=== PATIENT | female | born 1995 | race Caucasian/White ===

== ENCOUNTER → 2017-07-20 | Outpatient (CLI) | payer OTHER ==
--- NOTE | 2017-07-20 10:38 | CT ---
EXAMINATION TYPE: CT abdomen pelvis wo con DATE OF EXAM: 07/20/2017 COMPARISON: NONE HISTORY: Patient complains of left flank pain. Patient has a history of prior renal stones. CT DLP: 355.8 mGycm Examination of the solid and hollow viscera is limited given the lack of contrast. FINDINGS: LUNG BASES: No evidence for nodule. No evidence for infiltrate. LIVER/GB: The gallbladder is unremarkable. No space-occupying hepatic lesion. PANCREAS: No pancreatic mass identified. No inflammatory process seen. SPLEEN: No evidence for splenomegaly. No intrasplenic lesions seen. ADRENALS: No adrenal nodules identified. No evidence for thickening. KIDNEYS: Left UPJ calculus measuring 4.2 mm resulting in mild left-sided hydronephrosis. There is a c alculus adjacent to the urinary bladder on axial image 129 of 160 which measures 3 mm. This is likely outside of the confines of the ureter and may reflect a phlebolith. Urinary bladder is unremarkable. Urinary bladder is unremarkable. BOWEL: Appendix has a normal appearance. No evidence of bowel obstruction. No inflammatory process. Lymph nodes: No evidence for adenopathy greater than 1 cm. Abdominal aorta: Atheromatous changes seen. No evidence for aneurysm. Genital organs: No significant abnormality. Other: No significant abnormality. IMPRESSION: 1. LEFT UPJ CALCULUS RESULTING IN MILD LEFT-SIDED HYDRONEPHROSIS.
== END | disposition home or self-care (01) ==
LOC: RADCTMAIN 10:05
PROVIDERS: ATTEND Family Medicine
DX: N13.30 Unspecified hydronephrosis (principal); N20.1 Calculus of ureter
CPT/HCPCS: 74176

== ENCOUNTER 2017-09-16 17:23 | Emergency (ER) | payer OTHER ==
[2017-09-16 17:48] VITALS: BP 135/85; PULSE 69; RESP 16; TEMP 97.7
--- NOTE | 2017-09-16 18:36 | ED ---
ENT HPI - General Chief complaint: Dental/Oral Stated complaint: impacted tooth Time Seen by Provider: 09/16/17 18:07 Source: patient, RN notes reviewed Mode of arrival: ambulatory Limitations: no limitations - History of Present Illness Initial comments: This is a 22-year-old female who presents to the emergency department with chief complaint of dental pain. Patient states that she was seen last week by her dentist and was told that she has 4 impacted wisdom teeth. Advised her to set up an appointment with an oral surgeon, which patient states that she has not done so far. She states that she presented to urgent care this morning with pain in right upper molar area. She was prescribed naproxen and clindamycin. They advised her to present to the emergency department if any swelling occurred. She presents with complaint of minor swelling of right cheek. She states that she took Tylenol 3 this past Tuesday and that did help with the pain. Denies fever, chills, chest pain, shortness of breath, abdominal pain, nausea or vomiting, constipation or diarrhea, dysuria or hematuria, numbness or tingling, headache or vision changes. - Related Data Home Medications Medication Instructions Recorded Confirmed Ciprofloxacin HCl [Cipro] 500 mg PO BID 04/19/15 04/19/15 Ketorolac [Toradol] 1 tab PO Q6H PRN 04/19/15 04/19/15 Tamsulosin [Flomax] 1 tab PO DAILY 04/19/15 04/19/15 Previous Rx's Medication Instructions Recorded HYDROcodone/APAP 5-325MG [[place] 5] 1 each PO Q6HR PRN #12 tab 09/16/17 Allergies Allergy/AdvReac Type Severity Reaction Status Date / Time Sulfa (Sulfonamide Allergy Rash/Hives Verified 09/16/17 17:49 Antibiotics) amoxicillin [Amoxicillin] AdvReac Rash/Hives Verified 09/16/17 17:49 Review of Systems ROS Statement: Those systems with pertinent positive or pertinent negative responses have been documented in the HPI. ROS Other: All systems not noted in ROS Statement are negative. Past Medical History Past Medical History: GI Bleed History of Any Multi-Drug Resistant Organisms: None Reported Additional Past Surgical History / Comment(s): colonoscopy Past Psychological History: No Psychological Hx Reported Smoking Status: Never smoker Past Alcohol Use History: Occasional Past Drug Use History: None Reported General Exam - General Exam Comments Initial Comments: General: Awake and alert, well-developed; in no apparent distress. HEENT: Head atraumatic, normocephalic. Pupils are equal, round and reactive to light. Extraocular movements intact. Oropharynx moist without erythema or exudate. No evidence of fluctuance or mass. No dental or gumline tenderness. Mild swelling of right cheek. Neck: Supple. Normal ROM. Cardiovascular: Regular rate and rhythm. No murmurs, rubs or gallops. Chest symmetrical. Respiratory: Lungs clear to auscultation bilaterally. No wheezes, rales or rhonchi. Normal respiratory effort with no use of accessory muscles. Skin: [place], warm and dry without rashes or lesions. Neurological: Alert and oriented x3. CN II-XII grossly intact. Speech is fluent and answers are appropriate. No focal neuro deficits. Psychiatric: Normal mood and affect. No overt signs of depression or anxiety noted. Limitations: no limitations Course Vital Signs 09/16/17 17:47 Temperature 97.7 F Pulse Rate 69 Respiratory 16 Rate Blood Pressure 135/85 O2 Sat by Pulse 98 Oximetry Medical Decision Making - Medical Decision Making This is a 22-year-old female who presents to the emergency department with chief complaint of dental pain. she was seen last week by her dentist and was diagnosed with 4 impacted wisdom teeth. She was advised to schedule an appointment with oral surgery but has yet to do so. There is no evidence of abscess or localized infection. Patient was seen this morning at urgent care and was prescribed clindamycin and naproxen. Patient presents today to the emergency department with complaint of continuing pain. She requests pain medication to get through the weekend until she is able to follow-up with her doctor. Patient will be discharged home with a prescription for [place]. She was strongly advised to set up an appointment with oral surgery to have wisdom teeth removed. Patient is in agreement and voices understanding. All questions were answered. Disposition Clinical Impression: Impacted molar Disposition: HOME SELF-CARE Condition: Good Instructions: Toothache (ED) Additional Instructions: Please schedule appointment with oral surgery as soon as possible. Please take medications as prescribed. Continue to take Clindamycin as prescribed. Please follow up with primary care provider within 1-2 days. Return to emergency department if symptoms should worsen or any concerns arise. Prescriptions: HYDROcodone/APAP 5-325MG [[place] 5] 1 each PO Q6HR PRN #12 tab PRN Reason: Pain Referrals: Emily Douglas DO [Primary Care Provider] - 1-2 days Time of Disposition: 18:38
== END 2017-09-16 19:00 | disposition home or self-care (01) ==
LOC: EC 17:23
DX: K01.1 Impacted teeth (principal); Z79.899 Other long term (current) drug therapy; Z88.0 Allergy status to penicillin; Z88.2 Allergy status to sulfonamides
CPT/HCPCS: 99282

== ENCOUNTER → 2017-11-02 | Outpatient (CLI) | payer OTHER ==
--- NOTE | 2017-11-02 08:45 | CT ---
EXAMINATION TYPE: CT abdomen pelvis wo con DATE OF EXAM: 11/02/2017 HISTORY: Gross Hematuria CT DLP: 831 mGycm. Automated Exposure Control for Dose Reduction was Utilized. TECHNIQUE: CT scan of the abdomen and pelvis is performed without oral or IV contrast. COMPARISON: CT abdomen and pelvis July 20, 2017 FINDINGS: Within the limitations of a non-contrast study, the following observations are made. LUNG BASES: No significant abnormality is appreciated. LIVER/GB: Contracted gallbladder noted likely product of recent meal ingestion as somewhat prominent stomach is identified. PANCREAS: No significant abnormality is seen. SPLEEN: No significant abnormality is seen. ADRENALS: No significant abnormality is seen. KIDNEYS: No renal stones are seen bilaterally. There is however interval progression of calculus on p rior study at left UPJ to mid ureter level seen best coronal image 42 where it measures up to 5 mm on long axis at level of pelvic brim. This is perhaps causing minimal proximal pyelocaliectasis and hyd roureter. There is slightly more prominent focal hydroureter at level of calculus axial image 55. No right-sided hydronephrosis is seen. No intraluminal calculus in the bladder is identified. BOWEL: Incidental normal-appearing appendix is seen inferiorly from cecum. GENITAL ORGANS: Anteverted uterus is seen projecting to right of midline. Both ovaries are identified and not suspiciously enlarged. A new 2.0 cm low dense lesion left ovary axial image 69 likely reflec ts dominant follicle. LYMPH NODES: No greater than 1cm abdominal or pelvic lymph nodes are appreciated. OSSEOUS STRUCTURES: No significant abnormality is seen. OTHER: No significant additional abnormality is seen. IMPRESSION: There is interval progression of left UPJ stone now to level of pelvic brim or mid ureter level. It measures up to 5.5 mm on long axis on current study. There is focal mild to moderate urete r dilatation at level of stone. No significant hydronephrosis is seen. Urology referral advised.
== END | disposition home or self-care (01) ==
LOC: RADCTMAIN 08:06
PROVIDERS: ATTEND Family Medicine
DX: N20.1 Calculus of ureter (principal); N28.82 Megaloureter
CPT/HCPCS: 74176

== ENCOUNTER 2018-01-18 02:21 | Emergency (ER) | payer OTHER ==
[2018-01-18 02:36] VITALS: TEMP 98.4
[2018-01-18] MEDS ORDERED: ONDANSETRON 4 MG/2 ML VIAL IVP STA (02:41)
[2018-01-18] MEDS ORDERED: MORPHINE SULFATE/PF 10MG/10ML VL IVP STA ×2 (02:41→03:16)
[2018-01-18] MEDS ORDERED: SODIUM CHLORIDE 0.9% 1,000 ML IV ONE (02:41)
[2018-01-18] MEDS ORDERED: KETOROLAC 30 MG/ML 1 ML VIAL IVP STA (02:41)
[2018-01-18 02:50] LABS: Appearance,Urine Cloudy (Clear); Bilirubin,Urine Negative (Negative); Blood,Urine Small (Negative); Color,Urine Yellow; Glucose,Urine (UA) Negative (Negative); Ketones,Urine 1+ (Negative); Leukocyte Esterase,Urine Negative (Negative); Mucus,Urine Occasional /hpf; Nitrite,Urine Negative (Negative); PH, Urine 5.5 (5.0-8.0); Protein,Urine Trace (Negative); RBC,Urine 14 /hpf (0-5); Specific Gravity,Urine 1.022 (1.001-1.035); Squamous Epithelial Cell,Urine 6 /hpf (0-4); Urobilinogen,Urine <2.0 mg/dL (<2.0); WBC,Urine 2 /hpf (0-5)
--- NOTE | 2018-01-18 02:56 | ED ---
Abdominal Pain HPI - General Chief Complaint: Abdominal Pain Stated Complaint: kidney stone Time Seen by Provider: 01/18/18 02:38 Source: patient Mode of arrival: ambulatory Limitations: no limitations - History of Present Illness Initial Comments: 22-year-old female patient presents to the emergency department today for complaints of left flank and abdominal pain. Patient states that this started on Tuesday. States that throughout the week and it has worsened. States that today he has become much worse. States she is also having hematuria with this. States she feels like she is having some urinary retention. States that she has had a kidney stone 2-3 times in the past and this feels quite similar to her previous symptoms. Patient states she is nauseated but has not vomited. States she has had a few episodes of diarrhea today. Denies any blood in her stool. She denies any chance of . Patient denies any recent rash, fever, chills, shortness breath, chest pain, numbness, tingling, dizziness, weakness, headache, visual changes, or any other complaints. - Related Data Home Medications Medication Instructions Recorded Confirmed Dextroamphetamine/Amphetamine 25 mg PO QAM 01/18/18 01/18/18 [Adderall Xr] Previous Rx's Medication Instructions Recorded Hydrocodone/Acetaminophen [[place] 1 tab PO Q6HR PRN #15 tab 01/18/18 5-325] Ibuprofen [Motrin] 600 mg PO Q8HR PRN #30 tab 01/18/18 Ondansetron [Zofran ODT] 4 mg PO Q8HR PRN #10 tab 01/18/18 Tamsulosin HCl [Flomax] 0.4 mg PO DAILY #7 cap 01/18/18 Allergies Allergy/AdvReac Type Severity Reaction Status Date / Time Sulfa (Sulfonamide Allergy Rash/Hives Verified 01/18/18 02:36 Antibiotics) amoxicillin [Amoxicillin] AdvReac Rash/Hives Verified 01/18/18 02:36 Review of Systems ROS Statement: Those systems with pertinent positive or pertinent negative responses have been documented in the HPI. ROS Other: All systems not noted in ROS Statement are negative. Past Medical History Past Medical History: GI Bleed Additional Past Medical History / Comment(s): kidney stones History of Any Multi-Drug Resistant Organisms: C-DIFF Date of last positivie culture/infection: 2015 Additional Past Surgical History / Comment(s): colonoscopy, Past Psychological History: Anxiety, Depression Smoking Status: Never smoker Past Alcohol Use History: Occasional Past Drug Use History: None Reported General Exam Limitations: no limitations General appearance: alert, in no apparent distress, other (This is a well- developed, well-nourished adult female patient in mild distress related to pain. Vital signs upon presentation are temperature 98.4F, pulse 81, respirations 18, blood pressure 161/98, pulse ox 98% on room air.) Eye exam: Present: normal appearance, PERRL, EOMI. Absent: scleral icterus, conjunctival injection, periorbital swelling Respiratory exam: Present: normal lung sounds bilaterally. Absent: respiratory distress, wheezes, rales, rhonchi, stridor Cardiovascular Exam: Present: regular rate, normal rhythm, normal heart sounds. Absent: systolic murmur, diastolic murmur, rubs, gallop, clicks GI/Abdominal exam: Present: soft, tenderness (Left lower quadrant tenderness), normal bowel sounds. Absent: distended, guarding, rebound, rigid Back exam: Present: normal inspection, CVA tenderness (L). Absent: CVA tenderness (R) Neurological exam: Present: alert, oriented X3, CN II-XII intact Psychiatric exam: Present: normal affect, normal mood Skin exam: Present: warm, dry, intact, normal color. Absent: rash Course Vital Signs 01/18/18 02:32 Temperature 98.4 F Pulse Rate 81 Respiratory 18 Rate Blood Pressure 161/98 O2 Sat by Pulse 98 Oximetry Medical Decision Making - Medical Decision Making 22-year-old female patient presents to the emergency department today for evaluation of left flank and abdominal pain. Physical examination does reveal some left lower quadrant tenderness and left flank tenderness. Labs reviewed and did reveal red blood cells in the urine. Patient symptoms are consistent with kidney stone. She does have a history of kidney stones and states her symptoms feel similar. KUB x-ray of the abdomen did show a calcification of the left pelvic floor which could represent stone in the left distal ureter. I did discuss findings with the patient. We'll discharge her with Flomax, [place], ibuprofen, and Zofran. She is instructed to strain her urine. She is instructed to follow-up with urology as soon as possible. She is instructed to return here immediately for any new, worsening, or concerning symptoms. She verbalizes understanding and agrees with this plan. - Lab Data Result diagrams: 01/18/18 02:45 01/18/18 02:45 Lab Results 01/18/18 01/18/18 01/18/18 Range/Units 02:37 02:37 02:45 WBC (3.8-10.6) k/uL RBC (3.80-5.40) m/uL Hgb (11.4-16.0) gm/dL Hct (34.0-46.0) % MCV (80.0-100.0) fL MCH (25.0-35.0) pg MCHC (31.0-37.0) g/dL RDW (11.5-15.5) % Plt Count (150-450) k/uL Neutrophils % % Lymphocytes % % Monocytes % % Eosinophils % % Basophils % % Neutrophils # (1.3-7.7) k/uL Lymphocytes # (1.0-4.8) k/uL Monocytes # (0-1.0) k/uL Eosinophils # (0-0.7) k/uL Basophils # (0-0.2) k/uL Sodium 141 (137-145) mmol/L Potassium 3.9 (3.5-5.1) mmol/L Chloride 104 (98-107) mmol/L Carbon Dioxide 23 (22-30) mmol/L Anion Gap 14 mmol/L BUN 11 (7-17) mg/dL Creatinine 0.80 (0.52-1.04) mg/dL Est GFR (CKD-EPI)AfAm >90 (>60 ml/min/1.73 sqM) Est GFR (CKD-EPI)NonAf >90 (>60 ml/min/1.73 sqM) Glucose 95 (74-99) mg/dL Calcium 10.7 H (8.4-10.2) mg/dL Total Bilirubin 0.6 (0.2-1.3) mg/dL AST 20 (14-36) U/L ALT 24 (9-52) U/L Alkaline Phosphatase 101 (38-126) U/L Total Protein 7.0 (6.3-8.2) g/dL Albumin 4.1 (3.5-5.0) g/dL Amylase 36 (30-110) U/L Lipase 50 (23-300) U/L Urine Color Yellow Urine Appearance Cloudy H (Clear) Urine pH 5.5 (5.0-8.0) Ur Specific [place] 1.022 (1.001-1.035) Urine Protein Trace H (Negative) Urine Glucose (UA) Negative (Negative) Urine Ketones 1+ H (Negative) Urine Blood Small H (Negative) Urine Nitrite Negative (Negative) Urine Bilirubin Negative (Negative) Urine Urobilinogen <2.0 (<2.0) mg/dL Ur Leukocyte Esterase Negative (Negative) Urine RBC 14 H (0-5) /hpf Urine WBC 2 (0-5) /hpf Ur Squamous Epith Cells 6 H (0-4) /hpf Urine Mucus Occasional H (None) /hpf Urine HCG, Qual Not Detected (Not Detectd) 01/18/18 Range/Units 02:45 WBC 13.8 H (3.8-10.6) k/uL RBC 4.83 (3.80-5.40) m/uL Hgb 14.6 (11.4-16.0) gm/dL Hct 41.9 (34.0-46.0) % MCV 86.8 (80.0-100.0) fL MCH 30.2 (25.0-35.0) pg MCHC 34.8 (31.0-37.0) g/dL RDW 12.1 (11.5-15.5) % Plt Count 334 (150-450) k/uL Neutrophils % 78 % Lymphocytes % 14 % Monocytes % 3 % Eosinophils % 3 % Basophils % 1 % Neutrophils # 10.7 H (1.3-7.7) k/uL Lymphocytes # 1.9 (1.0-4.8) k/uL Monocytes # 0.5 (0-1.0) k/uL Eosinophils # 0.4 (0-0.7) k/uL Basophils # 0.1 (0-0.2) k/uL Sodium (137-145) mmol/L Potassium (3.5-5.1) mmol/L Chloride (98-107) mmol/L Carbon Dioxide (22-30) mmol/L Anion Gap mmol/L BUN (7-17) mg/dL Creatinine (0.52-1.04) mg/dL Est GFR (CKD-EPI)AfAm (>60 ml/min/1.73 sqM) Est GFR (CKD-EPI)NonAf (>60 ml/min/1.73 sqM) Glucose (74-99) mg/dL Calcium (8.4-10.2) mg/dL Total Bilirubin (0.2-1.3) mg/dL AST (14-36) U/L ALT (9-52) U/L Alkaline Phosphatase (38-126) U/L Total Protein (6.3-8.2) g/dL Albumin (3.5-5.0) g/dL Amylase (30-110) U/L Lipase (23-300) U/L Urine Color Urine Appearance (Clear) Urine pH (5.0-8.0) Ur Specific [place] (1.001-1.035) Urine Protein (Negative) Urine Glucose (UA) (Negative) Urine Ketones (Negative) Urine Blood (Negative) Urine Nitrite (Negative) Urine Bilirubin (Negative) Urine Urobilinogen (<2.0) mg/dL Ur Leukocyte Esterase (Negative) Urine RBC (0-5) /hpf Urine WBC (0-5) /hpf Ur Squamous Epith Cells (0-4) /hpf Urine Mucus (None) /hpf Urine HCG, Qual (Not Detectd) - Radiology Data Radiology results: report reviewed, image reviewed Two-view x-ray of the abdomen shows bowel gas pattern is normal. There is no sign of intestinal obstruction or pneumoperitoneum. Fecal pattern is normal. Lung bases are clear. There are no pathologic calcifications over the kidneys. There is a 6 mm calcification over the floor of the pelvis, left side. Bony structures are intact. Impression by Dr. Chacon shows left-sided pelvic calcification could be stone in the distal left ureter that was in the mid left ureter and a computed tomography scan of 11/02/2017. Disposition Clinical Impression: Kidney stone on left side Disposition: HOME SELF-CARE Condition: Good Instructions: Kidney Stones (ED), How to Strain Your Urine (ED) Additional Instructions: Increase fluids. Take medications as directed. Follow-up with urology as soon as possible. Return here immediately for any new, worsening, or concerning symptoms. Prescriptions: Hydrocodone/Acetaminophen [[place] 5-325] 1 tab PO Q6HR PRN #15 tab PRN Reason: Pain Ibuprofen [Motrin] 600 mg PO Q8HR PRN #30 tab PRN Reason: Pain Ondansetron [Zofran ODT] 4 mg PO Q8HR PRN #10 tab PRN Reason: Nausea Tamsulosin HCl [Flomax] 0.4 mg PO DAILY #7 cap Referrals: Emily Douglas DO [Primary Care Provider] - 1-2 days Marvin Dumont MD [STAFF PHYSICIAN] - 1-2 days Time of Disposition: 03:44
[2018-01-18 03:00] LABS: Basophils # (A) 0.1 k/uL (0-0.2); Basophils % (A) 1 %; Eosinophils # (A) 0.4 k/uL (0-0.7); Eosinophils % (A) 3 %; HCT 41.9 % (34.0-46.0); HGB 14.6 gm/dL (11.4-16.0); Lymphocytes # (A) 1.9 k/uL (1.0-4.8); Lymphocytes % (A) 14 %; MCH 30.2 pg (25.0-35.0); MCHC 34.8 g/dL (31.0-37.0); MCV 86.8 fL (80.0-100.0); Mean Platelet Volume 6.9; Monocytes # (A) 0.5 k/uL (0-1.0); Monocytes % (A) 3 %; Neutrophils # (A) 10.7 k/uL (1.3-7.7); Neutrophils % (A) 78 %; Platelet Count 334 k/uL (150-450); RBC 4.83 m/uL (3.80-5.40); RDW 12.1 % (11.5-15.5); WBC 13.8 k/uL (3.8-10.6)
[2018-01-18 03:11] LABS: ALT 24 U/L (9-52); AST 20 U/L (14-36); Albumin 4.1 g/dL (3.5-5.0); Alkaline Phosphatase 101 U/L (38-126); Amylase 36 U/L (30-110); Anion Gap 14 mmol/L; Blood Urea Nitrogen 11 mg/dL (7-17); Calcium 10.7 mg/dL (8.4-10.2); Carbon Dioxide 23 mmol/L (22-30); Chloride 104 mmol/L (98-107); Glucose 95 mg/dL (74-99); Lipase 50 U/L (23-300); Potassium 3.9 mmol/L (3.5-5.1); Sodium 141 mmol/L (137-145); Total Bilirubin 0.6 mg/dL (0.2-1.3)
--- NOTE | 2018-01-18 03:24 | XR ---
EXAMINATION TYPE: XR KUB DATE OF EXAM: 01/18/2018 COMPARISON: 04/19/2015 HISTORY: Left flank pain TECHNIQUE: 2 views FINDINGS: Bowel gas pattern is normal. There is no sign of intestinal obstruction or pneumoperitoneum . Fecal pattern is normal. Lung bases are clear. There are no pathologic calcifications over the kidn eys. There is a 6 mm calcification over the floor of the pelvis on the left side. Bony structures are intact. IMPRESSION: Left-sided pelvic calcification could be stone in the distal left ureter that was in the mid left ureter on the CT scan of 11/02/2017.
[2018-01-18] MEDS ORDERED: TAMSULOSIN 0.4 MG CAP.ER.24H PO STA (03:42)
[2018-01-18] MEDS ORDERED: ACET/COD 300 MG/30 MG STARTER PACK 6 TAB BTL PO STA (03:42)
[2018-01-18 04:08] VITALS: BP 131/85; PULSE 77; RESP 16
== END 2018-01-18 04:10 | disposition home or self-care (01) ==
LOC: EC 02:21
DX: N20.2 Calculus of kidney with calculus of ureter (principal); R19.7 Diarrhea, unspecified; F32.9 Major depressive disorder, single episode, unspecified; F41.9 Anxiety disorder, unspecified; Z79.899 Other long term (current) drug therapy; Z87.442 Personal history of urinary calculi; Z88.0 Allergy status to penicillin; Z88.2 Allergy status to sulfonamides
CPT/HCPCS: 99284; 96374; 96375 ×2; 36415; 80053; 82150; 83690; 85025; 81001; 81025; 74018; J2405; J1885; J2270

== ENCOUNTER 2018-02-10 08:29 | Inpatient (IN) | payer OTHER ==
[2018-02-10] MEDS ORDERED: MORPHINE SULFATE 4MG/4ML SYRG IV STA (08:55)
[2018-02-10] MEDS ORDERED: SODIUM CHLORIDE 0.9% 1,000 ML IV STA (08:55)
[2018-02-10] MEDS ORDERED: ONDANSETRON 4 MG/2 ML VIAL IVP STA (08:55)
[2018-02-10 09:32] LABS: Basophils # (A) 0.1 k/uL (0-0.2); Basophils % (A) 0 %; Eosinophils # (A) 0.1 k/uL (0-0.7); Eosinophils % (A) 1 %; HCT 38.4 % (34.0-46.0); HGB 12.8 gm/dL (11.4-16.0); Lymphocytes # (A) 1.9 k/uL (1.0-4.8); Lymphocytes % (A) 10 %; MCH 28.4 pg (25.0-35.0); MCHC 33.3 g/dL (31.0-37.0); MCV 85.4 fL (80.0-100.0); Mean Platelet Volume 6.9; Monocytes # (A) 1.1 k/uL (0-1.0); Monocytes % (A) 6 %; Neutrophils # (A) 16.2 k/uL (1.3-7.7); Neutrophils % (A) 83 %; Platelet Count 477 k/uL (150-450); RBC 4.49 m/uL (3.80-5.40); RDW 12.1 % (11.5-15.5); WBC 19.6 k/uL (3.8-10.6)
[2018-02-10 09:45] LABS: ALT 20 U/L (9-52); AST 13 U/L (14-36); Alkaline Phosphatase 115 U/L (38-126); Amylase 32 U/L (30-110); Anion Gap 11 mmol/L; Blood Urea Nitrogen 10 mg/dL (7-17); Calcium 10.4 mg/dL (8.4-10.2); Carbon Dioxide 26 mmol/L (22-30); Chloride 105 mmol/L (98-107); Glucose 80 mg/dL (74-99); Lipase 26 U/L (23-300); Potassium 3.9 mmol/L (3.5-5.1); Sodium 142 mmol/L (137-145); Total Bilirubin 0.3 mg/dL (0.2-1.3); Total Protein 5.9 g/dL (6.3-8.2)
[2018-02-10 09:50] LABS: Prothrombin Time 9.9 sec (9.0-12.0)
[2018-02-10] MEDS ORDERED: MORPHINE SULFATE 4MG/4ML SYRG IVP STA (09:55)
[2018-02-10] MEDS ORDERED: KETOROLAC 30 MG/ML 1 ML VIAL IVP PRN (10:32)
[2018-02-10] MEDS ORDERED: MORPHINE SULFATE 4MG/4ML SYRG IV PRN (10:32)
[2018-02-10] MEDS ORDERED: ACETAMINOPHEN TAB 325 MG TAB PO PRN (10:32)
[2018-02-10] MEDS ORDERED: NALOXONE 0.4 MG/ML 1 ML VIAL IV PRN (10:32)
--- NOTE | 2018-02-10 10:32 | ED ---
Abdominal Pain HPI - General Chief Complaint: Abdominal Pain Stated Complaint: Abd.pain Time Seen by Provider: 02/10/18 08:39 Source: patient, RN notes reviewed Mode of arrival: ambulatory Limitations: no limitations - History of Present Illness Initial Comments: This a 23-year-old female to emergency department she complained of abdominal pain, rectal pain. Patient has also colitis and kidney stones. Patient saw her primary care physician last couple days has CT started on steroids she's had no improvement of her symptoms. She states that she feels that her rectum is being torn out of her. She states that she may have had some blood in the past. She is continue GI Dr. Andrew was not seen that physician. She has been on medications in the past for her ulcerative colitis which she had some ALLERGIC reactions to it. Patient states that she cannot tolerate this pain anymore. She does see urology for her kidney stone they told her that it would pass on its own recent CT shows 7 mm stone at the [facility]. Patient's CT also showed colitis especially movement sigmoid region. - Related Data Home Medications Medication Instructions Recorded Confirmed Dextroamphetamine/Amphetamine 25 mg PO QAM 01/18/18 02/10/18 [Adderall Xr] predniSONE 50 mg PO DAILY 02/10/18 02/10/18 Allergies Allergy/AdvReac Type Severity Reaction Status Date / Time tamsulosin [From Flomax] Allergy Severe Anaphylaxis Verified 02/10/18 08:42 amoxicillin [Amoxicillin] Allergy Rash/Hives Verified 02/10/18 08:42 Sulfa (Sulfonamide Allergy Rash/Hives Verified 02/10/18 08:42 Antibiotics) Review of Systems ROS Statement: Those systems with pertinent positive or pertinent negative responses have been documented in the HPI. ROS Other: All systems not noted in ROS Statement are negative. Past Medical History Past Medical History: GI Bleed Additional Past Medical History / Comment(s): kidney stones. Ulcerative colitis. History of Any Multi-Drug Resistant Organisms: C-DIFF Date of last positivie culture/infection: 2015 MDRO Source:: stool Additional Past Surgical History / Comment(s): colonoscopy Past Anesthesia/Blood Transfusion Reactions: No Reported Reaction Past Psychological History: Anxiety, Depression Smoking Status: Never smoker Past Alcohol Use History: None Reported Past Drug Use History: None Reported - Past Family History Mother Family Medical History: Cancer, Neurologic Disorder Additional Family Medical History / Comment(s): ms. malignant basal cell melanoma. kidney stones. Father Family Medical History: Diabetes Mellitus Additional Family Medical History / Comment(s): ulcerative colitis. General Exam Limitations: no limitations General appearance: alert, in no apparent distress Head exam: Present: atraumatic, normocephalic, normal inspection Eye exam: Present: normal appearance, PERRL, EOMI. Absent: scleral icterus, conjunctival injection, periorbital swelling ENT exam: Present: normal exam, normal oropharynx, mucous membranes moist Neck exam: Present: normal inspection. Absent: tenderness, meningismus, lymphadenopathy Respiratory exam: Present: normal lung sounds bilaterally. Absent: respiratory distress, wheezes, rales, rhonchi, stridor Cardiovascular Exam: Present: regular rate, normal rhythm, normal heart sounds. Absent: systolic murmur, diastolic murmur, rubs, gallop, clicks GI/Abdominal exam: Present: soft, tenderness (Mild left lower), normal bowel sounds. Absent: distended, guarding, rebound, rigid Back exam: Absent: CVA tenderness (R), CVA tenderness (L) Skin exam: Present: warm, dry, intact, normal color. Absent: rash Course Vital Signs 02/10/18 08:30 Temperature 97 F L Pulse Rate 74 Respiratory 20 Rate Blood Pressure 138/93 O2 Sat by Pulse 99 Oximetry - Reevaluation(s) Reevaluation #1: 02/10/18 10:29 Patient had second round of pain medication continues to be in severe pain. Medical Decision Making - Medical Decision Making 23-year-old female presented for abdominal pain, rectal pain. Patient be admitted for ulcerative colitis exacerbation, intractable pain. - Lab Data Result diagrams: 02/10/18 09:13 02/10/18 09:13 Lab Results 02/10/18 02/10/18 02/10/18 Range/Units 09:13 09:13 09:13 WBC 19.6 H (3.8-10.6) k/uL RBC 4.49 (3.80-5.40) m/uL Hgb 12.8 (11.4-16.0) gm/dL Hct 38.4 (34.0-46.0) % MCV 85.4 (80.0-100.0) fL MCH 28.4 (25.0-35.0) pg MCHC 33.3 (31.0-37.0) g/dL RDW 12.1 (11.5-15.5) % Plt Count 477 H (150-450) k/uL Neutrophils % 83 % Lymphocytes % 10 % Monocytes % 6 % Eosinophils % 1 % Basophils % 0 % Neutrophils # 16.2 H (1.3-7.7) k/uL Lymphocytes # 1.9 (1.0-4.8) k/uL Monocytes # 1.1 H (0-1.0) k/uL Eosinophils # 0.1 (0-0.7) k/uL Basophils # 0.1 (0-0.2) k/uL PT (9.0-12.0) sec INR (<1.2) APTT (22.0-30.0) sec Sodium 142 (137-145) mmol/L Potassium 3.9 (3.5-5.1) mmol/L Chloride 105 (98-107) mmol/L Carbon Dioxide 26 (22-30) mmol/L Anion Gap 11 mmol/L BUN 10 (7-17) mg/dL Creatinine 0.63 (0.52-1.04) mg/dL Est GFR (CKD-EPI)AfAm >90 (>60 ml/min/1.73 sqM) Est GFR (CKD-EPI)NonAf >90 (>60 ml/min/1.73 sqM) Glucose 80 (74-99) mg/dL Plasma Lactic Acid Natanael 1.2 (0.7-2.0) mmol/L Calcium 10.4 H (8.4-10.2) mg/dL Total Bilirubin 0.3 (0.2-1.3) mg/dL AST 13 L (14-36) U/L ALT 20 (9-52) U/L Alkaline Phosphatase 115 (38-126) U/L Total Protein 5.9 L (6.3-8.2) g/dL Albumin 3.0 L (3.5-5.0) g/dL Amylase 32 (30-110) U/L Lipase 26 (23-300) U/L 02/10/18 Range/Units 09:13 WBC (3.8-10.6) k/uL RBC (3.80-5.40) m/uL Hgb (11.4-16.0) gm/dL Hct (34.0-46.0) % MCV (80.0-100.0) fL MCH (25.0-35.0) pg MCHC (31.0-37.0) g/dL RDW (11.5-15.5) % Plt Count (150-450) k/uL Neutrophils % % Lymphocytes % % Monocytes % % Eosinophils % % Basophils % % Neutrophils # (1.3-7.7) k/uL Lymphocytes # (1.0-4.8) k/uL Monocytes # (0-1.0) k/uL Eosinophils # (0-0.7) k/uL Basophils # (0-0.2) k/uL PT 9.9 (9.0-12.0) sec INR 1.0 (<1.2) APTT 24.0 (22.0-30.0) sec Sodium (137-145) mmol/L Potassium (3.5-5.1) mmol/L Chloride (98-107) mmol/L Carbon Dioxide (22-30) mmol/L Anion Gap mmol/L BUN (7-17) mg/dL Creatinine (0.52-1.04) mg/dL Est GFR (CKD-EPI)AfAm (>60 ml/min/1.73 sqM) Est GFR (CKD-EPI)NonAf (>60 ml/min/1.73 sqM) Glucose (74-99) mg/dL Plasma Lactic Acid Natanael (0.7-2.0) mmol/L Calcium (8.4-10.2) mg/dL Total Bilirubin (0.2-1.3) mg/dL AST (14-36) U/L ALT (9-52) U/L Alkaline Phosphatase (38-126) U/L Total Protein (6.3-8.2) g/dL Albumin (3.5-5.0) g/dL Amylase (30-110) U/L Lipase (23-300) U/L Disposition Clinical Impression: Exacerbation of ulcerative colitis, Intractable abdominal pain Disposition: ADMITTED IP TO THIS [facility] Condition: Stable Is patient prescribed a controlled substance at d/c from ED?: No Referrals: Emily Douglas DO [Primary Care Provider] - 1-2 days
[2018-02-10] MEDS ORDERED: methylPREDNISolone SOD SUCCI 125 MG/2 ML VIAL IV STA (10:34)
[2018-02-10] MEDS: SODIUM CHLORIDE 0.9% 1,000 ML IV SCH ×2 (10:45→12:16)
[2018-02-10 11:00] LABS: Amorphous Sediment,Urine Occasional /hpf; Appearance,Urine Cloudy (Clear); Bacteria,Urine Rare /hpf; Bilirubin,Urine Negative (Negative); Blood,Urine Negative (Negative); Color,Urine Yellow; Glucose,Urine (UA) Negative (Negative); Ketones,Urine Negative (Negative); Leukocyte Esterase,Urine Moderate (Negative); Mucus,Urine Occasional /hpf; Nitrite,Urine Negative (Negative); Protein,Urine Negative (Negative); Squamous Epithelial Cell,Urine 4 /hpf (0-4); Urobilinogen,Urine <2.0 mg/dL (<2.0); WBC,Urine 9 /hpf (0-5)
[2018-02-10] MEDS: HYDROcodone/APAP 5-325MG 1 EACH TAB PO PRN (12:16)
[2018-02-10] MEDS ORDERED: methylPREDNISolone SOD SUCCI 125 MG/2 ML VIAL IV SCH (12:45)
[2018-02-10] MEDS: HEPARIN SODIUM,PORCINE 5,000 UNIT/ML 1 ML VIAL SQ SCH ×2 (12:54→22:15)
[2018-02-10] MEDS: PANTOPRAZOLE 40 MG/10 ML VIAL IVP SCH (13:17)
[2018-02-10] MEDS: MORPHINE SULFATE 4 MG/0.8 ML SYRINGE (INJ) IV PRN ×2 (14:03→18:26)
--- NOTE | 2018-02-10 14:23 | HP ---
HISTORY AND PHYSICAL DATE OF SERVICE: 02/10/2018 CHIEF COMPLAINT: Abdominal pain and rectal pain. HISTORY OF PRESENT ILLNESS: This 23-year-old woman with a past history of ulcerative colitis, nephrolithiasis, is complaining of abdominal pain. The patient had outpatient treatment. Because of a failure of outpatient treatment, the patient came to [facility] and admitted for evaluation and treatment. Abdominal pelvis CAT scan was done recommended by Dr. Douglas in the outpatient setting, and the CT scan shows thickening along the colonic wall and inflammatory changes present in the pericolonic fat at the level of the descending colon, large amount of retained fecal debris was present in the colon also. There is no history of any fever, rigors, chills. No history of headache, loss of consciousness. Patient admitted for further evaluation. White count is elevated. PAST MEDICAL HISTORY: History of ulcerative colitis, history of left kidney stone, history of hyperparathyroidism, history of C. difficile colitis, history ADD, ADHD, anxiety, depression. MEDICATIONS: Prior to admission include: 1. Prednisone 50 mg p.o. daily. 2. Adderall XR 20 mg q.a.m. ALLERGIES: FLOMAX, AMOXICILLIN, SULFA. FAMILY HISTORY: History of cancer, multiple sclerosis, malignant melanoma, kidney stones. SOCIAL HISTORY: No history of smoking, no history of alcohol. Patient works in a factory. REVIEW OF SYSTEMS: ENT: No diminished hearing or vision. CARDIOVASCULAR: No angina. RESPIRATORY: No cough. GI: As mentioned earlier. : No dysuria. NERVOUS SYSTEM: No numbness, weakness. ALLERGY/IMMUNOLOGY: No asthma. MUSCULOSKELETAL: As mentioned earlier. HEMATOLOGY/ONCOLOGY: No history of anemia. ENDOCRINE: No diabetes or hypothyroidism. CONSTITUTIONAL: as mentioned earlier. DERMATOLOGY: Negative. RHEUMATOLOGY: Negative. PSYCHIATRY: As mentioned earlier. PHYSICAL EXAMINATION: Alert, oriented x4. Pulse 70, blood pressure 120/83, respiration 18, temperature 97.7, pulse ox 97% on room air. HEENT: Conjunctivae normal. Oral mucosa moist. NECK: No jugular venous distention. No carotid bruit. No lymph node enlargement. CARDIOVASCULAR: S1, S2. RESPIRATORY: Breath sounds diminished in the bases. No rhonchi, no crackles. ABDOMEN: Soft, mild diffuse tenderness present in both upper and lower quadrants. No guarding, rigidity. There is no mass palpable. No ascites. Bowel sounds present. LEGS: No edema, no swelling. NERVOUS SYSTEM: Higher functions as mentioned earlier. Moves all four limbs. No focal deficits. LYMPHATIC: No lymphadenopathy in the neck, axillae, groin. SKIN: No ulcer, rash or bleeding. LABS: WBC 19.6, hemoglobin 12.8, and calcium is 10.4 and albumin is 3. UA noted. ASSESSMENT: 1. Abdominal pain with possible acute ulcerative colitis, acute exacerbation. 2. Increased WBC. 3. Increased calcium. 4. Hyperparathyroidism. 5. Left kidney stones. 6. History of C diff colitis. 7. Attention deficit disorder/attention deficit hyperactivity disorder. 8. History of anxiety depression. RECOMMENDATIONS AND DISCUSSION: In this 23-year-old woman who presented with multiple complex medical issues, we will monitor the patient closely. Continue the current management and symptomatic treatment. Abdominal ultrasound was done recently which showed mild right-sided hydronephrosis. Recent CT scan has been reviewed. We will obtain gastroenterology evaluation. IV steroids. Symptomatic treatment. Pain management. Guarded prognosis because of multiple complex medical conditions. Further recommendations to follow. A copy of dictation being forwarded to Dr. Douglas who is the primary physician. MMODL / IJN: [id number] /
[2018-02-10] MEDS: KETOROLAC 30 MG/ML 1 ML VIAL IVP PRN ×2 (16:17→20:44)
[2018-02-10 16:55] LABS: Glucose,Whole Blood 110 mg/dL (75-99)
[2018-02-10] MEDS: INSULIN ASPART 100 UNIT/ML 1 ML 10 ML VIAL SQ SCH ×2 (16:55→22:15)
[2018-02-10] MEDS: methylPREDNISolone SOD SUCCI 125 MG/2 ML VIAL IV SCH (18:26)
[2018-02-10] MEDS: ONDANSETRON 4 MG/2 ML VIAL IVP PRN (18:55)
[2018-02-10 21:02] LABS: Glucose,Whole Blood 112 mg/dL (75-99)
[2018-02-10 22:05] LABS: Hemoglobin A1C 5.4 % (4.0-6.0)
[2018-02-11] MEDS: methylPREDNISolone SOD SUCCI 125 MG/2 ML VIAL IV SCH ×4 (00:34→17:39)
[2018-02-11] MEDS: MORPHINE SULFATE 4 MG/0.8 ML SYRINGE (INJ) IV PRN ×2 (00:49→12:03)
[2018-02-11] MEDS: SODIUM CHLORIDE 0.9% 1,000 ML IV SCH ×2 (00:58→13:17)
[2018-02-11] MEDS: KETOROLAC 30 MG/ML 1 ML VIAL IVP PRN ×4 (02:09→22:35)
[2018-02-11] MEDS: HYDROcodone/APAP 5-325MG 1 EACH TAB PO PRN ×4 (02:42→21:50)
[2018-02-11] MEDS: LORazepam 2 MG/ML INJ IV PRN ×3 (02:55→19:39)
[2018-02-11] MEDS ORDERED: WATER FOR INJECTION, STERILE 10 ML IV ONE (02:57)
[2018-02-11] MEDS: INSULIN ASPART 100 UNIT/ML 1 ML 10 ML VIAL SQ SCH ×4 (06:55→21:53)
[2018-02-11 07:00] LABS: Glucose,Whole Blood 113 mg/dL (75-99)
[2018-02-11] MEDS: ONDANSETRON 4 MG/2 ML VIAL IVP PRN ×2 (07:12→16:10)
[2018-02-11] MEDS: HEPARIN SODIUM,PORCINE 5,000 UNIT/ML 1 ML VIAL SQ SCH ×2 (10:06→21:52)
[2018-02-11] MEDS: PANTOPRAZOLE 40 MG/10 ML VIAL IVP SCH (10:06)
--- NOTE | 2018-02-11 10:07 | P.CONS ---
History of Present Illness - Reason for Consult Consult date: 02/10/18 Colitis - History of Present Illness The patient is a 23-year-old female who was admitted to the hospital because of abdominal pain, rectal pain and bleeding. We are asked to see her for colitis. 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 She had abdominal pains and rectal pains and she had in duration in the perineal area but no fistulous drainage and has seen her primary provider last week and was started on prednisone. Because of worsening symptoms with rectal bleeding she was admitted to the hospital and the is currently on IV steroids. We are asked to see her regarding her colitis. The patient also has history of kidney stones. Computed tomography scan done as outpatient showed colitis in the descending colon and the right hydronephrosis. The patient has followed in our office in the past and her father is one of our patients with ulcerative colitis as well. The patient denied fever, chills, hematemesis or melena. She is passing fresh blood and she describes her bowel movements to be bloody as well. There is history of C. difficile colitis in the past. Review of Systems Constitutional: Denied fever, chills or unintentional weight loss Neurologic: No headaches, double vision or other sensory or motor changes Cardiopulmonary: Denied chest pains, shortness of breath or palpitations Genitourinary: Has been complaining of painful menstrual periods and she is questioning if she has endometriosis. Has history of kidney stones as mentioned above Gastrointestinal: See present illness above Endocrine: No diabetes or thyroid disease Skin: No rashes Musculoskeletal: No joint swelling or pain Psychiatric: No anxiety or depression Past Medical History Past Medical History: GI Bleed Additional Past Medical History / Comment(s): Ulcerative colitis, L sided kidney stone, past blood in stool, hyperparathyroidis-to have surgery and elevated calcium levels. History of Any Multi-Drug Resistant Organisms: C-DIFF Year Discovered:: 2016 MDRO Source:: stool Additional Past Surgical History / Comment(s): colonoscopy Past Anesthesia/Blood Transfusion Reactions: No Reported Reaction Smoking Status: Never smoker - Past Family History Mother Family Medical History: Cancer, Neurologic Disorder Additional Family Medical History / Comment(s): ms. malignant melanoma. kidney stones. Father Family Medical History: Diabetes Mellitus Additional Family Medical History / Comment(s): ulcerative colitis. Medications and Allergies Home Medications Medication Instructions Recorded Confirmed Type Dextroamphetamine/Amphetamine 25 mg PO QAM 01/18/18 02/10/18 History [Adderall Xr] predniSONE 50 mg PO DAILY 02/10/18 02/10/18 History Allergies Allergy/AdvReac Type Severity Reaction Status Date / Time tamsulosin [From Flomax] Allergy Severe Anaphylaxis Verified 02/10/18 12:59 amoxicillin [Amoxicillin] Allergy Rash/Hives Verified 02/10/18 12:59 Sulfa (Sulfonamide Allergy Rash/Hives Verified 02/10/18 12:59 Antibiotics) Physical Exam Vitals: Vital Signs Temp Pulse Pulse Resp BP BP Pulse Ox 02/10/18 15:59 98.2 F 69 20 108/65 97 02/10/18 11:46 97.7 F 70 18 120/83 97 02/10/18 10:54 97.9 F 79 16 121/70 98 02/10/18 08:30 97 F L 74 20 138/93 99 Intake and Output 02/10/18 02/10/18 02/10/18 06:59 14:59 22:59 Output Total 1000 Balance -1000 Output: Urine 1000 Other: Voiding Method Toilet # Voids 1 # Bowel Movements 1 Weight 72.575 kg General: Appeared stated age very pleasant in no acute distress Head and neck: Normocephalic and atraumatic, conjunctivae pink and sclerae not icteric, post membranes moist and pink. No masses in the neck or click issues. No adenopathy or thyromegaly Lungs: Clear to auscultation with no dullness to percussion Heart: Regular with no abnormal sounds, murmurs, gallops or friction rubs Abdomen: Soft, diffuse tenderness no guarding or rebound bowel sounds present Extremities: No clubbing, cyanosis or edema Neurologic: Alert and oriented 3, cranial nerves grossly intact, no gross sensory or motor abnormalities Results CBC & Chem 7: 02/10/18 09:13 02/10/18 09:13 Labs: Abnormal Lab Results - Last 24 Hours (Table) 02/10/18 02/10/18 02/10/18 Range/Units 09:13 09:13 10:44 WBC 19.6 H (3.8-10.6) k/uL Plt Count 477 H (150-450) k/uL Neutrophils # 16.2 H (1.3-7.7) k/uL Monocytes # 1.1 H (0-1.0) k/uL POC Glucose (mg/dL) (75-99) mg/dL Calcium 10.4 H (8.4-10.2) mg/dL AST 13 L (14-36) U/L Total Protein 5.9 L (6.3-8.2) g/dL Albumin 3.0 L (3.5-5.0) g/dL Urine Appearance Cloudy H (Clear) Ur Leukocyte Esterase Moderate H (Negative) Urine WBC 9 H (0-5) /hpf Amorphous Sediment Occasional H (None) /hpf Urine Bacteria Rare H (None) /hpf Urine Mucus Occasional H (None) /hpf 02/10/18 Range/Units 16:53 WBC (3.8-10.6) k/uL Plt Count (150-450) k/uL Neutrophils # (1.3-7.7) k/uL Monocytes # (0-1.0) k/uL POC Glucose (mg/dL) 110 H (75-99) mg/dL Calcium (8.4-10.2) mg/dL AST (14-36) U/L Total Protein (6.3-8.2) g/dL Albumin (3.5-5.0) g/dL Urine Appearance (Clear) Ur Leukocyte Esterase (Negative) Urine WBC (0-5) /hpf Amorphous Sediment (None) /hpf Urine Bacteria (None) /hpf Urine Mucus (None) /hpf Assessment and Plan Assessment: The presentation of this 23-year-old female is consistent with exacerbation of inflammatory bowel disease. Infectious etiology to be kept in mind. Her genitourinary issues are certainly contributing to her overall state of health. Plan: Agree with your current management. Will follow closely her response to steroids. Stools has been sent for studies. Consideration will be given for a colonoscopy during this admission. I will discuss with you and follow with you with interest.
[2018-02-11 11:33] LABS: Basophils % (A) 0 %; Eosinophils % (A) 0 %; HCT 39.1 % (34.0-46.0); HGB 12.6 gm/dL (11.4-16.0); Lymphocytes # (A) 0.7 k/uL (1.0-4.8); Lymphocytes % (A) 3 %; MCH 28.3 pg (25.0-35.0); MCHC 32.1 g/dL (31.0-37.0); MCV 87.9 fL (80.0-100.0); Mean Platelet Volume 6.6; Monocytes # (A) 0.5 k/uL (0-1.0); Monocytes % (A) 3 %; Neutrophils # (A) 18.7 k/uL (1.3-7.7); Neutrophils % (A) 93 %; Platelet Count 493 k/uL (150-450); RBC 4.44 m/uL (3.80-5.40); RDW 12.1 % (11.5-15.5)
[2018-02-11 11:41] LABS: Anion Gap 10 mmol/L; Blood Urea Nitrogen 13 mg/dL (7-17); Calcium 10.1 mg/dL (8.4-10.2); Carbon Dioxide 28 mmol/L (22-30); Chloride 103 mmol/L (98-107); Glucose 151 mg/dL (74-99); Potassium 4.2 mmol/L (3.5-5.1); Sodium 141 mmol/L (137-145)
[2018-02-11 11:47] LABS: Glucose,Whole Blood 169 mg/dL (75-99)
[2018-02-11] MEDS: MORPHINE ORAL SOLN 10 MG/5 ML CUP PO PRN ×2 (16:02→20:22)
[2018-02-11 17:09] LABS: Glucose,Whole Blood 136 mg/dL (75-99)
--- NOTE | 2018-02-11 17:09 | PN ---
PROGRESS NOTE DATE OF SERVICE: 02/11/2018 This 23-year-old woman was admitted with abdominal pain as well as possibly ulcerative colitis acute exacerbation. Closely monitor. CT scan has been noted. The patient is on IV steroids. The patient is slightly better. Patient still has some hematochezia at this time. Gastroenterology is following the patient closely for possible endoscopes. EXAM: Alert and oriented x3. Pulse 71, blood pressure 123/70, respirations 16, temperature 97.2, pulse ox 98% on room air. HEENT: Conjunctivae normal. NECK: No jugular venous distention. CARDIOVASCULAR: S1, S2. RESPIRATORY: Breath sounds diminished in the bases. No rhonchi. No crackles. ABDOMEN: Soft, mild diffuse discomfort on palpation. LEGS: No edema. NERVOUS SYSTEM: No focal deficits. LABS: WBC 20 and glucose 151. ASSESSMENT: 1. Abdominal pain, hematochezia, possibly ulcerative colitis acute exacerbation. 2. Increased WBC. 3. Increase calcium. 4. Hyperparathyroidism history. 5. Left kidney stones, history of C difficile colitis. 6. Attention deficit disorder, attention deficit hyperactivity disorder. 7. History of anxiety, depression. RECOMMENDATIONS AND DISCUSSION: I recommend to continue current management, continue monitoring and continue symptomatic treatment. Otherwise continue steroids. Monitor blood sugars closely. Closely follow with Dr. Sexton for possible endoscopes. Further recommendations to follow. MMODL / IJN: [id number] /
[2018-02-11 21:38] LABS: Glucose,Whole Blood 123 mg/dL (75-99)
[2018-02-12] MEDS: MORPHINE ORAL SOLN 10 MG/5 ML CUP PO PRN ×2 (00:39→06:34)
[2018-02-12] MEDS: methylPREDNISolone SOD SUCCI 125 MG/2 ML VIAL IV SCH ×5 (00:41→23:28)
[2018-02-12] MEDS: SODIUM CHLORIDE 0.9% 1,000 ML IV SCH (01:13)
[2018-02-12] MEDS: LORazepam 2 MG/ML INJ IV PRN ×4 (01:59→20:29)
[2018-02-12] MEDS: HYDROcodone/APAP 5-325MG 1 EACH TAB PO PRN ×4 (02:59→20:59)
[2018-02-12] MEDS: KETOROLAC 30 MG/ML 1 ML VIAL IVP PRN ×4 (06:20→23:28)
[2018-02-12 06:42] LABS: Glucose,Whole Blood 113 mg/dL (75-99)
[2018-02-12] MEDS: INSULIN ASPART 100 UNIT/ML 1 ML 10 ML VIAL SQ SCH ×4 (06:43→20:33)
[2018-02-12 06:54] LABS: HCT 35.8 % (34.0-46.0); HGB 11.6 gm/dL (11.4-16.0); MCH 28.4 pg (25.0-35.0); MCHC 32.3 g/dL (31.0-37.0); MCV 87.8 fL (80.0-100.0); Mean Platelet Volume 6.6; Platelet Count 493 k/uL (150-450); RBC 4.08 m/uL (3.80-5.40); RDW 11.9 % (11.5-15.5)
[2018-02-12 06:57] LABS: WBC 27.7 k/uL (3.8-10.6)
[2018-02-12 07:31] LABS: Anion Gap 9 mmol/L; Blood Urea Nitrogen 15 mg/dL (7-17); Carbon Dioxide 27 mmol/L (22-30); Chloride 107 mmol/L (98-107); Glucose 122 mg/dL (74-99); Potassium 4.5 mmol/L (3.5-5.1); Sodium 143 mmol/L (137-145)
[2018-02-12] MEDS ORDERED: WATER FOR INJECTION, STERILE 10 ML IV ONE (07:50)
[2018-02-12 08:26] LABS: Glucose,Whole Blood 124 mg/dL (75-99)
[2018-02-12 08:27] LABS: Band Neutrophils % 3 %; Lymphocytes # (M) 0.55 k/uL (1.0-4.8); Monocytes # (M) 1.39 k/uL (0-1.0); Neutrophils % (M) 90 %; Nucleated Red Blood Cells 0 /100 WBC (0-0); Polychromasia Present; Total Cells Counted 100
[2018-02-12] MEDS: HEPARIN SODIUM,PORCINE 5,000 UNIT/ML 1 ML VIAL SQ SCH ×2 (09:45→20:35)
[2018-02-12] MEDS: PANTOPRAZOLE 40 MG/10 ML VIAL IVP SCH (09:45)
--- NOTE | 2018-02-12 09:58 | P.GSCN ---
History of Present Illness Consult date: 02/12/18 Reason for Consult: Left ureteral calculus History of present illness: The patient is a 23-year-old female admitted on 02/10/2018 for evaluation of severe perineal discomfort. The patient says that her pain began approximately 10 days ago. She has a history of kidney stones and was seen by me in the office on 02/03. At that time she was complaining of perineal discomfort which occurred with voiding and after voiding. The pain was much worse however when she would have a bowel movement. The patient has had no gross hematuria or rectal bleeding. She has a history of a left ureteral calculus which was located at the level of the ureteropelvic junction at the time of a computed tomography scan in 06/2017. Computed tomography scan on 11/02/2017 showed the calculus to be located at the level of the left pelvic brim. I saw the patient in the office on 02/03 and I told her it was possible that the ureteral calculus could be the cause of her pain however perineal discomfort is a very unusual location for pain from passage of a ureteral calculus. The patient has a history of ulcerative colitis and I recommended that she discuss this further with Dr. Prather. A computed tomography scan of the abdomen and pelvis with IV contrast was done on 02/08. This confirmed a 5 x 7 mm calculus in the left ureter which appeared to be either at the left ureterovesical junction or intramural ureter. There was only mild left hydronephrosis and essentially no delay in function of the left kidney consistent with minimal obstruction. The patient has not passed the calculus since then. She says she is voiding every 4 -5 hours during the day and once or twice at night. She says that this is her normal pattern of voiding. The patient does have a history of a stone that passed spontaneously approximately 3 years ago. Her family history is significant in that her mother has had kidney stones. The patient has hyperparathyroidism and says she has an appointment at [facility] for parathyroid surgery which is tentatively scheduled for 02/23. She does not have a history of recurrent urinary tract infection. Review of Systems - Constitutional Denies chills, Denies fever - Respiratory Denies pain on inspiration - Gastrointestinal Reports abdominal pain (There is mild discomfort in the left abdomen and flank) , Denies vomiting - Genitourinary Genitourinary: Reports as per HPI Past Medical History Past Medical History: GI Bleed Additional Past Medical History / Comment(s): Ulcerative colitis, left ureteral calculus, past blood in stool, hyperparathyroidis-to have surgery and elevated calcium levels. History of Any Multi-Drug Resistant Organisms: C-DIFF Year Discovered:: 2015 MDRO Source:: stool Additional Past Surgical History / Comment(s): colonoscopy Past Anesthesia/Blood Transfusion Reactions: No Reported Reaction Smoking Status: Never smoker - Past Family History Mother Family Medical History: Cancer, Neurologic Disorder Additional Family Medical History / Comment(s): ms. malignant melanoma. kidney stones. Father Family Medical History: Diabetes Mellitus Additional Family Medical History / Comment(s): ulcerative colitis. Medications and Allergies Home Medications Medication Instructions Recorded Confirmed Type Dextroamphetamine/Amphetamine 25 mg PO QAM 01/18/18 02/10/18 History [Adderall Xr] predniSONE 50 mg PO DAILY 02/10/18 02/10/18 History Allergies Allergy/AdvReac Type Severity Reaction Status Date / Time tamsulosin [From Flomax] Allergy Severe Anaphylaxis Verified 02/10/18 12:59 amoxicillin [Amoxicillin] Allergy Rash/Hives Verified 02/10/18 12:59 Sulfa (Sulfonamide Allergy Rash/Hives Verified 02/10/18 12:59 Antibiotics) Surgical - Exam Vital Signs Temp Pulse Resp BP Pulse Ox 97 F L 74 20 138/93 99 02/10/18 08:30 02/10/18 08:30 02/10/18 08:30 02/10/18 08:30 02/10/18 08:30 - General well developed, moderate pain - Respiratory normal respiratory effort - Abdomen Abdomen: soft, tender (Mild tenderness in left flank and left abdomen), no organomegaly, no masses, no guarding Results - Labs 02/12/18 06:30 02/12/18 06:30 Abnormal Lab Results - Last 24 Hours (Table) 02/11/18 02/11/18 02/11/18 Range/Units 11:13 11:13 11:45 WBC 20.0 H (3.8-10.6) k/uL Plt Count 493 H (150-450) k/uL Neutrophils # 18.7 H (1.3-7.7) k/uL Neutrophils # (Manual) (1.3-7.7) k/uL Lymphocytes # 0.7 L (1.0-4.8) k/uL Lymphocytes # (Manual) (1.0-4.8) k/uL Monocytes # (Manual) (0-1.0) k/uL Glucose 151 H (74-99) mg/dL POC Glucose (mg/dL) 169 H (75-99) mg/dL 02/11/18 02/11/18 02/12/18 Range/Units 17:06 21:26 06:29 WBC (3.8-10.6) k/uL Plt Count (150-450) k/uL Neutrophils # (1.3-7.7) k/uL Neutrophils # (Manual) (1.3-7.7) k/uL Lymphocytes # (1.0-4.8) k/uL Lymphocytes # (Manual) (1.0-4.8) k/uL Monocytes # (Manual) (0-1.0) k/uL Glucose (74-99) mg/dL POC Glucose (mg/dL) 136 H 123 H 113 H (75-99) mg/dL 02/12/18 02/12/18 02/12/18 Range/Units 06:30 06:30 08:22 WBC 27.7 H* (3.8-10.6) k/uL Plt Count 493 H (150-450) k/uL Neutrophils # (1.3-7.7) k/uL Neutrophils # (Manual) 25.70 H (1.3-7.7) k/uL Lymphocytes # (1.0-4.8) k/uL Lymphocytes # (Manual) 0.55 L (1.0-4.8) k/uL Monocytes # (Manual) 1.39 H (0-1.0) k/uL Glucose 122 H (74-99) mg/dL POC Glucose (mg/dL) 124 H (75-99) mg/dL Microbiology - Last 24 Hours (Table) 02/10/18 09:13 Blood Culture - Preliminary Blood No Growth after 24 hours Diabetes panel 02/11/18 02/12/18 Range/Units 11:13 06:30 Sodium 141 143 (137-145) mmol/L Potassium 4.2 4.5 (3.5-5.1) mmol/L Chloride 103 107 (98-107) mmol/L Carbon Dioxide 28 27 (22-30) mmol/L BUN 13 15 (7-17) mg/dL Creatinine 0.61 0.59 (0.52-1.04) mg/dL Glucose 151 H 122 H (74-99) mg/dL Calcium 10.1 10.0 (8.4-10.2) mg/dL Calcium panel 02/11/18 02/12/18 Range/Units 11:13 06:30 Calcium 10.1 10.0 (8.4-10.2) mg/dL Pituitary panel 02/11/18 02/12/18 Range/Units 11:13 06:30 Sodium 141 143 (137-145) mmol/L Potassium 4.2 4.5 (3.5-5.1) mmol/L Chloride 103 107 (98-107) mmol/L Carbon Dioxide 28 27 (22-30) mmol/L BUN 13 15 (7-17) mg/dL Creatinine 0.61 0.59 (0.52-1.04) mg/dL Glucose 151 H 122 H (74-99) mg/dL Calcium 10.1 10.0 (8.4-10.2) mg/dL Adrenal panel 02/11/18 02/12/18 Range/Units 11:13 06:30 Sodium 141 143 (137-145) mmol/L Potassium 4.2 4.5 (3.5-5.1) mmol/L Chloride 103 107 (98-107) mmol/L Carbon Dioxide 28 27 (22-30) mmol/L BUN 13 15 (7-17) mg/dL Creatinine 0.61 0.59 (0.52-1.04) mg/dL Glucose 151 H 122 H (74-99) mg/dL Calcium 10.1 10.0 (8.4-10.2) mg/dL - Imaging CT scan - abdomen: image reviewed (I personally reviewed the patient's computed tomography scan which confirms a 5 x 7 mm minimally obstructive calculus at the left ureterovesical junction or within the left intramural ureter. Minimal left hydronephrosis and essentially no delay in function of the left kidney is noted) Assessment and Plan (1) Calculus of distal left ureter Narrative/Plan: I explained to the patient and her parents that although she does have a distal left ureteral calculus the location and character of her perineal pain is not typical of ureteral colic. This calculus has migrated and is almost in the bladder at this point and in view of the lack of significant hydronephrosis I believe that further observation is reasonable. The cause of the patient's perineal discomfort remains unclear however it is possibly related to scaring or inflammation of the anus related to her inflammatory bowel disease. I discussed this with Dr. Gonsalo Zapata and Dr. Fountain. Repeat computed tomography scan of the abdomen and pelvis is being considered for further evaluation as to the cause of the patient's elevated white blood count and perineal discomfort. Current Visit: Yes Status: Acute Code(s): N20.1 - CALCULUS OF URETER SNOMED Code(s): 565336413
[2018-02-12] MEDS: MORPHINE SULFATE 4 MG/0.8 ML SYRINGE (INJ) IVP PRN ×3 (10:49→19:53)
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
--- NOTE | 2018-02-12 11:03 | CT ---
EXAMINATION TYPE: CT abdomen pelvis wo con DATE OF EXAM: 02/12/2018 COMPARISON: Previous study dated 02/08/2018. HISTORY: Intractable rectal pain-no injury CT DLP: 364.1 mGycm Automated exposure control for dose reduction was used. FINDINGS: There is a very small left pleural effusion. Visualized portions of the lungs are clear. Th ere is no pericardial fluid. The heart is not enlarged. Within the abdomen, the liver, spleen and gallbladder are normal. Both adrenal glands are normal. There is no evidence of hydronephrosis or nephrolithiasis. Limited views of the pancreas are normal. There is no significant retroperitoneal, iliac or inguinal adenopathy. The bladder is nondistended. There is a 7 mm calcification at the level of the left UVJ. This is unch anged from previous. I am uncertain if this represents ureteric calculus. The uterus is unremarkable. The ovaries are not well visualized. There is mild thickening of the mucosal of the sigmoid colon. There is contrast within the colon from a recent barium examination. There is pericolonic inflammatory change at the level of the proximal descending colon. The appendix is normal. Small bowel loops are normal in caliber. There is no free air and no significant free fluid. There is mild, generalized anasarca. No bony lesion is seen. IMPRESSION: 1. INTERVAL DEVELOPMENT OF A SMALL LEFT PLEURAL EFFUSION AND GENERALIZED ANASARCA. 2. I CANNOT EXCLUDE A DISTAL LEFT URETERIC CALCULUS WITHOUT HYDRONEPHROSIS. 3. SOME THICKENING AND PERICOLONIC INFLAMMATORY CHANGE AT THE LEVEL OF THE PROXIMAL DESCENDING COLON. PLEASE CORRELATE FOR COLITIS.
[2018-02-12 12:18] LABS: Glucose,Whole Blood 121 mg/dL (75-99)
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
[2018-02-12] MEDS: metroNIDAZOLE-NS PMX 500 MG in SALINE 1 100ML.BAG IVPB SCH ×2 (15:24→23:28)
[2018-02-12 18:06] LABS: Glucose,Whole Blood 136 mg/dL (75-99)
[2018-02-12] MEDS: HYOSCYAMINE ORAL DROPS 1.875 MG/15 ML BOTTLE PO PRN ×2 (18:16→22:11)
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
[2018-02-12 20:34] LABS: Glucose,Whole Blood 137 mg/dL (75-99)
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
[2018-02-13] MEDS: MORPHINE SULFATE 4 MG/0.8 ML SYRINGE (INJ) IVP PRN ×7 (00:17→22:26)
[2018-02-13] MEDS: HYDROcodone/APAP 5-325MG 1 EACH TAB PO PRN ×4 (01:40→21:19)
[2018-02-13] MEDS: HYOSCYAMINE ORAL DROPS 1.875 MG/15 ML BOTTLE PO PRN ×3 (02:20→10:50)
[2018-02-13] MEDS: LORazepam 2 MG/ML INJ IV PRN ×4 (03:27→22:26)
[2018-02-13 05:04] LABS: Anion Gap 9 mmol/L; Blood Urea Nitrogen 16 mg/dL (7-17); Calcium 9.5 mg/dL (8.4-10.2); Carbon Dioxide 29 mmol/L (22-30); Chloride 101 mmol/L (98-107); Glucose 118 mg/dL (74-99); Potassium 3.9 mmol/L (3.5-5.1); Sodium 139 mmol/L (137-145)
[2018-02-13 05:12] LABS: HCT 33.8 % (34.0-46.0); HGB 10.7 gm/dL (11.4-16.0); MCH 27.9 pg (25.0-35.0); MCHC 31.8 g/dL (31.0-37.0); MCV 87.7 fL (80.0-100.0); Mean Platelet Volume 6.9; Platelet Count 435 k/uL (150-450); RBC 3.86 m/uL (3.80-5.40); RDW 12.3 % (11.5-15.5); WBC 22.7 k/uL (3.8-10.6)
[2018-02-13] MEDS: SODIUM CHLORIDE 0.9% 1,000 ML IV SCH ×4 (05:44→21:22)
[2018-02-13] MEDS: metroNIDAZOLE-NS PMX 500 MG in SALINE 1 100ML.BAG IVPB SCH ×3 (05:44→23:02)
[2018-02-13] MEDS: KETOROLAC 30 MG/ML 1 ML VIAL IVP PRN ×3 (05:44→21:20)
[2018-02-13] MEDS ORDERED: Potassium Replacement Protocol 1 EACH MISC MISCELLANE PRN (06:13)
[2018-02-13] MEDS: methylPREDNISolone SOD SUCCI 125 MG/2 ML VIAL IV SCH ×4 (06:50→23:02)
[2018-02-13] MEDS ORDERED: POTASSIUM CHLORIDE ER 20 MEQ TAB.ER PO SCH (07:00)
[2018-02-13 07:26] LABS: Glucose,Whole Blood 107 mg/dL (75-99)
[2018-02-13] MEDS: HEPARIN SODIUM,PORCINE 5,000 UNIT/ML 1 ML VIAL SQ SCH ×2 (08:48→21:23)
[2018-02-13] MEDS: PANTOPRAZOLE 40 MG/10 ML VIAL IVP SCH (08:48)
[2018-02-13] MEDS: INSULIN ASPART 100 UNIT/ML 1 ML 10 ML VIAL SQ SCH ×4 (08:51→21:22)
[2018-02-13 09:28] LABS: Band Neutrophils % 27 %; Lymphocytes # (M) 0.23 k/uL (1.0-4.8); Metamyelocytes # (M) 0.68 k/uL (0); Metamyelocytes % 3 %; Monocytes # (M) 0.23 k/uL (0-1.0); Neutrophils % (M) 69 %; Nucleated Red Blood Cells 0 /100 WBC (0-0); Total Cells Counted 200
[2018-02-13 09:29] LABS: Toxic Granulation Present
--- NOTE | 2018-02-13 09:30 | P.PN ---
Subjective Progress Note Date: 02/13/18 Patient is a 23-year-old white female admitted to the hospital with perianal/ rectal pain as well as abdominal pain. She has a complex medical history with a diagnosis of ulcerative colitis, kidney stone, and primary hyperparathyroidism. She was seen in consultation by Dr. Guevara yesterday for a history of dysmenorrhea. There is some question as to whether she has endometriosis however at this time secondary to a hyperparathyroidism she will not be started on depo-provera. The patient today states that she has pain in her chest as well as in her abdomen. The patient is anxious. The patient has not been tolerating her diet well. The patient's computed tomography scan was performed yesterday which revealed interval development of a small left pleural effusion, suspected distal left ureteral calculus without hydronephrosis , some thickening and pericolonic inflammatory change at the level of the proximal descending colon. The patient was seen in consultation also by Dr. Christiano Berrios who feels that the leukocytosis is related to steroids. Objective - Vital Signs Vital signs: Vital Signs Temp 98.5 F 02/13/18 04:00 Pulse 128 H 02/13/18 07:00 Resp 24 02/13/18 07:00 BP 108/61 02/13/18 07:00 Pulse Ox 94 L 02/13/18 07:00 Intake & Output 02/12/18 02/13/18 02/13/18 18:59 06:59 18:59 Intake Total 825 1100 75 Balance 825 1100 75 Weight 72.9 kg 96.4 kg Intake: IV 825 900 75 Sodium Chloride 0.9% 1, 825 900 75 000 ml @ 75 mls/hr IV . [id number] [facility] Rx#:[id number] Oral 200 Other: Voiding Method Toilet Toilet # Voids 1 1 - Constitutional General appearance: Present: mild distress, thin - Respiratory Details: Decreased breath sounds at the bases,otherwise clear - Cardiovascular Heart sounds: normal: S1, S2 - Gastrointestinal Gastrointestinal Comment(s): Diffuse tenderness, greatest in the lower right and left quadrants Abdomen is soft General gastrointestinal: Present: soft - Psychiatric Psychiatric: Present: A&O x's 3, intact judgment & insight - Labs CBC & Chem 7: 02/13/18 04:14 02/13/18 04:14 Labs: Abnormal Lab Results - Last 24 Hours (Table) 04/22/18 04/22/18 04/22/18 Range/Units 12:17 17:25 17:25 WBC (3.8-10.6) k/uL Hgb (11.4-16.0) gm/dL Hct (34.0-46.0) % ESR 30 H (0-20) mm/hr Glucose (74-99) mg/dL POC Glucose (mg/dL) 121 H (75-99) mg/dL C-Reactive Protein 81.9 H (<10.0) mg/L 02/12/18 02/12/18 02/13/18 Range/Units 18:04 20:32 04:14 WBC 22.7 H (3.8-10.6) k/uL Hgb 10.7 L (11.4-16.0) gm/dL Hct 33.8 L (34.0-46.0) % ESR (0-20) mm/hr Glucose (74-99) mg/dL POC Glucose (mg/dL) 136 H 137 H (75-99) mg/dL C-Reactive Protein (<10.0) mg/L 02/13/18 02/13/18 Range/Units 04:14 07:25 WBC (3.8-10.6) k/uL Hgb (11.4-16.0) gm/dL Hct (34.0-46.0) % ESR (0-20) mm/hr Glucose 118 H (74-99) mg/dL POC Glucose (mg/dL) 107 H (75-99) mg/dL C-Reactive Protein (<10.0) mg/L Microbiology - Last 24 Hours (Table) 02/12/18 12:07 Urine Culture - Preliminary Urine,Clean Catch 02/10/18 09:13 Blood Culture - Preliminary Blood No Growth after 48 hours Assessment and Plan Assessment: Impression/plan: 1. Exacerbation of colitis 2. Possible perianal stricturing unable to examine secondary to tenderness 3. Primary hyperparathyroidism 4. Anxiety 5. Leukocytosis partially related to steroids 6. Kidney stones Plan: 1. Medical management of colitis 2. Repeat computed tomography scan/this was reviewed and findings as noted 3. Reviewed infectious disease consult/leukocytosis most likely related to steroid use 4. Appreciate [employer] consult 5. At this time patient does not have an acute surgical abdomen 6. Repeat CBC in a.m.
[2018-02-13 12:14] LABS: Glucose,Whole Blood 128 mg/dL (75-99)
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
[2018-02-13] MEDS: ACETAMINOPHEN IV (For NPO) 1,000 MG in EMPTY BAG 1 BAG IVPB PRN (16:12)
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
[2018-02-13 16:58] LABS: Glucose,Whole Blood 105 mg/dL (75-99)
--- NOTE | 2018-02-13 18:36 | P.PN ---
Subjective Progress Note Date: 02/13/18 Progress Note Being DIctated For Dr. Gagnon. Interval history: This is a 23-year-old female admitted with acute severe abdominal pain, multifactorial with history of ulcerative colitis and multiple other medical issues. Continues to complain of abdominal pain, perineal pain, rectal pain. Receiving Toradol, morphine, [place], IV steroids. Complains of nausea, no emesis today. Followed by multiple consults. Evaluated by urology regarding left ureter calculus, with further observation recommended at this time. VSS.Maintained on broad-spectrum IV antibiotics as per infectious disease. Afebrile, elevated WBC-on steroids. Objective - Vital Signs Vital signs: Vital Signs Temp 98.5 F 02/13/18 04:00 Pulse 128 H 02/13/18 07:00 Resp 24 02/13/18 07:00 BP 108/61 02/13/18 07:00 Pulse Ox 94 L 02/13/18 07:00 Intake & Output 02/12/18 02/13/18 02/13/18 18:59 06:59 18:59 Intake Total 825 1100 75 Balance 825 1100 75 Weight 72.9 kg 96.4 kg Intake: IV 825 900 75 Sodium Chloride 0.9% 1, 825 900 75 000 ml @ 75 mls/hr IV . [id number] [facility] Rx#:[id number] Oral 200 Other: Voiding Method Toilet Toilet # Voids 1 1 - Exam PHYSICAL EXAM: VITAL SIGNS: As above GENERAL: Sitting up in bed, calm, sleepy, just received pain medication HEENT: Conjunctivae normal. eyes normal. NECK: No JVD. No thyroid enlargement. No LNs CARDIOVASCULAR: S1, S2 muffled. No murmur RESPIRATION: Breath sounds diminished in the bases. No rhonchi or crackles. No bronchial breathing. ABDOMEN: Soft, mild diffuse tenderness, greater on left lower quadrant . No guarding. no masses palpable. Bowel sounds heard. Rectal exam deferred. LEGS: No edema. no swelling PSYCHIATRY: Alert and oriented -3, calm, NERVOUS SYSTEM: Cranial N 2-12 grossly normal. Moves all 4 limbs. Diffuse weakness No focal deficits. Skin: no ulcer no rash Joints: No active swelling. No inflammation. - Labs CBC & Chem 7: 02/13/18 04:14 02/13/18 04:14 Labs: Abnormal Lab Results - Last 24 Hours (Table) 02/12/18 02/12/18 02/12/18 Range/Units 12:17 17:25 17:25 WBC (3.8-10.6) k/uL Hgb (11.4-16.0) gm/dL Hct (34.0-46.0) % Neutrophils # (Manual) (1.3-7.7) k/uL Lymphocytes # (Manual) (1.0-4.8) k/uL Metamyelocytes # (Man) (0) k/uL ESR 30 H (0-20) mm/hr Glucose (74-99) mg/dL POC Glucose (mg/dL) 121 H (75-99) mg/dL C-Reactive Protein 81.9 H (<10.0) mg/L 02/12/18 02/12/18 02/13/18 Range/Units 18:04 20:32 04:14 WBC 22.7 H (3.8-10.6) k/uL Hgb 10.7 L (11.4-16.0) gm/dL Hct 33.8 L (34.0-46.0) % Neutrophils # (Manual) 21.70 H (1.3-7.7) k/uL Lymphocytes # (Manual) 0.23 L (1.0-4.8) k/uL Metamyelocytes # (Man) 0.68 H (0) k/uL ESR (0-20) mm/hr Glucose (74-99) mg/dL POC Glucose (mg/dL) 136 H 137 H (75-99) mg/dL C-Reactive Protein (<10.0) mg/L 02/13/18 02/13/18 Range/Units 04:14 07:25 WBC (3.8-10.6) k/uL Hgb (11.4-16.0) gm/dL Hct (34.0-46.0) % Neutrophils # (Manual) (1.3-7.7) k/uL Lymphocytes # (Manual) (1.0-4.8) k/uL Metamyelocytes # (Man) (0) k/uL ESR (0-20) mm/hr Glucose 118 H (74-99) mg/dL POC Glucose (mg/dL) 107 H (75-99) mg/dL C-Reactive Protein (<10.0) mg/L Microbiology - Last 24 Hours (Table) 02/10/18 09:13 Blood Culture - Preliminary Blood No Growth after 72 hours 02/12/18 12:07 Urine Culture - Preliminary Urine,Clean Catch Assessment and Plan Assessment: 1. Abdominal pain, hematochezia, possible OF colitis, acute exacerbation, severe intractable rectal pain and perineal pain 2. Rectal dilatation on computed tomography scan 3. Left kidney stone 4. Leukocytosis Plan: Continue on current medication regime ,monitoring and symptomatic treatment. Maintain IV antibiotics as per infectious disease. Follow with multiple consults closely. Psychiatry consult in place with recommendations pending. The impression and plan of care has been dictated as directed. : I performed a history and examination of this patient, discussed the same with the dictator. I agree with the dictator's note ,documented as a scribe. Any additional findings or plans will be noted.
[2018-02-13 20:59] LABS: Glucose,Whole Blood 130 mg/dL (75-99)
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
[2018-02-14] MEDS: MORPHINE SULFATE 4 MG/0.8 ML SYRINGE (INJ) IVP PRN ×7 (02:46→20:04)
[2018-02-14] MEDS: HYDROcodone/APAP 5-325MG 1 EACH TAB PO PRN ×2 (02:46→06:45)
[2018-02-14] MEDS: ONDANSETRON 4 MG/2 ML VIAL IVP PRN (02:58)
[2018-02-14] MEDS: KETOROLAC 30 MG/ML 1 ML VIAL IVP PRN ×2 (02:58→17:47)
[2018-02-14 04:14] LABS: HCT 35.4 % (34.0-46.0); HGB 11.3 gm/dL (11.4-16.0); MCH 28.1 pg (25.0-35.0); MCHC 31.9 g/dL (31.0-37.0); Mean Platelet Volume 6.8; Platelet Count 424 k/uL (150-450); RBC 4.02 m/uL (3.80-5.40); RDW 12.4 % (11.5-15.5)
[2018-02-14] MEDS: ACETAMINOPHEN IV (For NPO) 1,000 MG in EMPTY BAG 1 BAG IVPB PRN ×3 (04:23→23:36)
[2018-02-14] MEDS: SODIUM CHLORIDE 0.9% 1,000 ML IV SCH ×3 (04:24→20:53)
[2018-02-14 04:30] LABS: Anion Gap 7 mmol/L; Blood Urea Nitrogen 19 mg/dL (7-17); Calcium 9.4 mg/dL (8.4-10.2); Carbon Dioxide 28 mmol/L (22-30); Chloride 104 mmol/L (98-107); Glucose 112 mg/dL (74-99); Sodium 139 mmol/L (137-145)
[2018-02-14] MEDS: HYOSCYAMINE ORAL DROPS 1.875 MG/15 ML BOTTLE PO PRN (04:44)
[2018-02-14 05:28] LABS: Band Neutrophils % 26 %; Lymphocytes # (M) 0.27 k/uL (1.0-4.8); Metamyelocytes % 6 %; Myelocytes # (M) 0.27 k/uL (0); Myelocytes % 1 %; Neutrophils % (M) 68 %; Nucleated Red Blood Cells 1 /100 WBC (0-0); Total Cells Counted 200
[2018-02-14 05:29] LABS: Metamyelocytes # (M) 1.61 k/uL (0); WBC 26.9 k/uL (3.8-10.6)
[2018-02-14 05:30] LABS: Toxic Granulation Present; Toxic Vacuolation Present
[2018-02-14] MEDS: metroNIDAZOLE-NS PMX 500 MG in SALINE 1 100ML.BAG IVPB SCH (06:45)
[2018-02-14] MEDS: methylPREDNISolone SOD SUCCI 125 MG/2 ML VIAL IV SCH ×3 (06:45→18:55)
[2018-02-14 07:03] LABS: Glucose,Whole Blood 129 mg/dL (75-99)
--- NOTE | 2018-02-14 08:09 | XR ---
EXAMINATION TYPE: XR chest 1V DATE OF EXAM: 02/14/2018 COMPARISON: NONE HISTORY: Pain TECHNIQUE: Single frontal view of the chest is obtained. FINDINGS: There is moderate pneumoperitoneum. Correlate clinically for recent operative procedure versus perfo rated viscus. There is no focal air space opacity, pleural effusion, or pneumothorax seen. The cardiac silhouette size is within normal limits. The osseous structures are intact. IMPRESSION: 1. There is moderate pneumoperitoneum. Correlate clinically for recent operative procedure versus per forated viscus. A Red level critical message alert has been initiated for Abdias Guardado via the [employer] Results System on 02/14/2018 8:07 AM. This message alert has been sent to Abdias Guardado via the prefe rences provided by the clinician for the receipt of Radiology Critical Findings. Message ID [id number].
[2018-02-14 09:59] LABS: INR 1.4 (<1.2); Prothrombin Time 13.5 sec (9.0-12.0)
--- NOTE | 2018-02-14 10:16 | CT ---
EXAMINATION TYPE: CT abdomen pelvis wo con DATE OF EXAM: 02/14/2018 HISTORY: Abn CXR, free air. Ulcerative colitis exacerbation CT DLP: 604.1 mGycm. Automated Exposure Control for Dose Reduction was Utilized. TECHNIQUE: CT scan of the abdomen and pelvis is performed without oral or IV contrast. COMPARISON: Chest x-ray earlier today. CT abdomen and pelvis 2 days ago and older studies. FINDINGS: Within the limitations of a non-contrast study, the following observations are made. LUNG BASES: There are increasing size small left greater than right pleural effusions with associated compressive atelectasis. LIVER/GB: No significant abnormality is appreciated. PANCREAS: No significant abnormality is seen. SPLEEN: No significant abnormality is seen. ADRENALS: No significant abnormality is seen. KIDNEYS: No significant abnormality is seen. BOWEL: There is some residual oral contrast from older CTs noted in the colon. There is no suspicious small or large bowel dilatation. GENITAL ORGANS: Anteverted uterus is less well-seen on current study LYMPH NODES: No greater than 1cm abdominal or pelvic lymph nodes are appreciated. OSSEOUS STRUCTURES: No significant abnormality is seen. OTHER: There is new large amount of free fluid in pelvic cul-de-sac on axial image 89. There is small amount of abdominal ascites most prominent in the paracolic gutters. Note is made of higher density dependent material in the left paracolic gutter. There is suspicious left linear hyperdense area prox imal is left colon just past splenic flexure coronal image 46 and axial image 42 just inferior to the spleen. Significant pneumoperitoneum as seen on recent chest x-ray is noted anteriorly. Additional s cattered foci of air are seen most prominent in the upper abdomen. Mild to moderate diffuse soft tiss ue anasarca is more prominent from prior. IMPRESSION: Confirmation of new pneumoperitoneum. New abdominal and pelvic fluid or ascites most prom inent in the pelvis. Hyperdense fluid left paracolic gutter suggests a site of perforation in more le ft-sided bowel loop possibly near proximal left colon just past splenic flexure as detailed above alt clifford this would be expected to cause some retroperitoneal air which is not clearly identified. Urgen t surgical exploration is warranted.
--- NOTE | 2018-02-14 10:21 | P.PN ---
Subjective Progress Note Date: 02/14/18 Principal diagnosis: abdominal pain rectal bleeding Seen around 0830 this morning. No BM x 48 hours. Increased abdominal pain and distension. CXR reported pneumoperitoneum. No emesis. No fever. Objective - Vital Signs Vital signs: Vital Signs Temp 99.5 F 02/14/18 04:00 Pulse 110 H 02/14/18 07:00 Resp 28 H 02/14/18 07:00 BP 118/95 02/14/18 07:00 Pulse Ox 95 02/14/18 07:00 Intake & Output 02/13/18 02/14/18 02/14/18 18:59 06:59 18:59 Intake Total 1720 1750 125 Output Total 400 950 Balance 1320 800 125 Weight 94.2 kg Intake: IV 300 1375 125 Sodium Chloride 0.9% 1, 1375 125 000 ml @ 125 mls/hr IV . Q8H [facility] Rx#:[id number] Sodium Chloride 0.9% 1, 300 000 ml @ 75 mls/hr IV . [id number] [facility] Rx#:[id number] Intake, IV Titration 1200 125 Amount ACETAMINOPHEN IV (For NPO 100 ) 1,000 mg In Empty Bag 1 bag @ 400 mls/hr IVPB Q6HR PRN Rx#:[id number] Sodium Chloride 0.9% 1, 1000 125 000 ml @ 125 mls/hr IV . Q8H [facility] Rx#:[id number] metroNIDAZOLE-NS PMX 500 100 mg In Saline 1 100ml.bag @ 100 mls/hr IVPB Q8H [facility] Rx#:[id number] Oral 220 250 Output: Urine 200 950 Stool 200 Other: Voiding Method Toilet Toilet # Voids 1 1 - Constitutional General appearance: Present: average body habitus - EENT Eyes: Present: normal appearance ENT: Present: normal oropharynx - Neck Neck: Present: normal ROM - Respiratory Respiratory: bilateral: CTA - Cardiovascular Rhythm: regular Heart sounds: normal: S1, S2 - Gastrointestinal Gastrointestinal Comment(s): Hypoactive BS. Soft. Diffuse moderate tenderness all over abdomen. Positive rebound positive guarding. - Integumentary Integumentary: Present: normal turgor - Psychiatric Psychiatric: Present: A&O x's 3, appropriate affect - Labs CBC & Chem 7: 02/14/18 03:58 02/14/18 03:58 Labs: Abnormal Lab Results - Last 24 Hours (Table) 02/13/18 02/13/18 02/13/18 Range/Units 12:11 16:56 20:57 WBC (3.8-10.6) k/uL Hgb (11.4-16.0) gm/dL Neutrophils # (Manual) (1.3-7.7) k/uL Lymphocytes # (Manual) (1.0-4.8) k/uL Metamyelocytes # (Man) (0) k/uL Myelocytes # (Manual) (0) k/uL Nucleated RBCs (0-0) /100 WBC PT (9.0-12.0) sec INR (<1.2) BUN (7-17) mg/dL Glucose (74-99) mg/dL POC Glucose (mg/dL) 128 H 105 H 130 H (75-99) mg/dL 02/14/18 02/14/18 02/14/18 Range/Units 03:58 03:58 07:01 WBC 26.9 H* (3.8-10.6) k/uL Hgb 11.3 L (11.4-16.0) gm/dL Neutrophils # (Manual) 25.20 H (1.3-7.7) k/uL Lymphocytes # (Manual) 0.27 L (1.0-4.8) k/uL Metamyelocytes # (Man) 1.61 H (0) k/uL Myelocytes # (Manual) 0.27 H (0) k/uL Nucleated RBCs 1 H (0-0) /100 WBC PT (9.0-12.0) sec INR (<1.2) BUN 19 H (7-17) mg/dL Glucose 112 H (74-99) mg/dL POC Glucose (mg/dL) 129 H (75-99) mg/dL 02/14/18 Range/Units 09:47 WBC (3.8-10.6) k/uL Hgb (11.4-16.0) gm/dL Neutrophils # (Manual) (1.3-7.7) k/uL Lymphocytes # (Manual) (1.0-4.8) k/uL Metamyelocytes # (Man) (0) k/uL Myelocytes # (Manual) (0) k/uL Nucleated RBCs (0-0) /100 WBC PT 13.5 H (9.0-12.0) sec INR 1.4 H (<1.2) BUN (7-17) mg/dL Glucose (74-99) mg/dL POC Glucose (mg/dL) (75-99) mg/dL Microbiology - Last 24 Hours (Table) 02/12/18 12:07 Urine Culture - Final Urine,Clean Catch 02/12/18 10:28 Blood Culture - Preliminary Blood No Growth after 24 hours 02/10/18 09:13 Blood Culture - Preliminary Blood No Growth after 72 hours - Imaging and Cardiology Chest x-ray: report reviewed (Reviewed by Dr. Dickerson) Assessment and Plan (1) Pneumoperitoneum Current Visit: Yes Status: Acute Code(s): K66.8 - OTHER SPECIFIED DISORDERS OF PERITONEUM SNOMED Code(s): 06539110 (2) Abdominal pain Current Visit: Yes Status: Acute Code(s): R10.9 - UNSPECIFIED ABDOMINAL PAIN SNOMED Code(s): 09551247 (3) Exacerbation of ulcerative colitis Current Visit: Yes Status: Acute Code(s): K51.90 - ULCERATIVE COLITIS, UNSPECIFIED, WITHOUT COMPLICATIONS SNOMED Code(s): 476833533 (4) Leukocytosis Current Visit: Yes Status: Acute Code(s): D72.829 - ELEVATED WHITE BLOOD CELL COUNT, UNSPECIFIED SNOMED Code(s): 834911832 Plan: 1. NPO. 2. CT abdomen/pelvis STAT further evlauate CXR findings. 3. IV antibiotics; ID following. 4. General surgical evaluation. Assessment and plan of care discussed with Dr. Dickerson
[2018-02-14] MEDS ORDERED: HYDROCORTISONE SUCCINATE 100 MG/2 ML VIAL IV STA (10:27)
[2018-02-14] MEDS ORDERED: HEPARIN SODIUM,PORCINE 5,000 UNIT/ML 1 ML VIAL SQ ONE (10:32)
--- NOTE | 2018-02-14 10:32 | P.PN ---
Subjective Progress Note Date: 02/14/18 Patient is a 23-year-old white female with multiple medical problems admitted to the intensive care unit with abdominal pain. The patient states that at approximately 3 AM she had increasing discomfort and on a chest x-ray performed today she was noted to have pneumoperitoneum. Patient states that the pain is diffuse throughout her abdomen. Objective - Vital Signs Vital signs: Vital Signs Temp 99.5 F 02/14/18 04:00 Pulse 110 H 02/14/18 07:00 Resp 28 H 02/14/18 07:00 BP 118/95 02/14/18 07:00 Pulse Ox 95 02/14/18 07:00 Intake & Output 02/13/18 02/14/18 02/14/18 18:59 06:59 18:59 Intake Total 1720 1750 125 Output Total 400 950 Balance 1320 800 125 Weight 94.2 kg Intake: IV 300 1375 125 Sodium Chloride 0.9% 1, 1375 125 000 ml @ 125 mls/hr IV . Q8H [facility] Rx#:[id number] Sodium Chloride 0.9% 1, 300 000 ml @ 75 mls/hr IV . [id number] [facility] Rx#:[id number] Intake, IV Titration 1200 125 Amount ACETAMINOPHEN IV (For NPO 100 ) 1,000 mg In Empty Bag 1 bag @ 400 mls/hr IVPB Q6HR PRN Rx#:[id number] Sodium Chloride 0.9% 1, 1000 125 000 ml @ 125 mls/hr IV . Q8H [facility] Rx#:[id number] metroNIDAZOLE-NS PMX 500 100 mg In Saline 1 100ml.bag @ 100 mls/hr IVPB Q8H [facility] Rx#:[id number] Oral 220 250 Output: Urine 200 950 Stool 200 Other: Voiding Method Toilet Toilet # Voids 1 1 - Constitutional General appearance: Present: average body habitus - Respiratory Details: Decreased breath sounds at the bases - Cardiovascular Rhythm: regular Heart sounds: normal: S1, S2 - Gastrointestinal Gastrointestinal Comment(s): Diffusely tender, guarding present - Psychiatric Psychiatric: Present: A&O x's 3, appropriate affect, intact judgment & insight - Labs CBC & Chem 7: 02/14/18 03:58 02/14/18 03:58 Labs: Abnormal Lab Results - Last 24 Hours (Table) 02/13/18 02/13/18 02/13/18 Range/Units 12:11 16:56 20:57 WBC (3.8-10.6) k/uL Hgb (11.4-16.0) gm/dL Neutrophils # (Manual) (1.3-7.7) k/uL Lymphocytes # (Manual) (1.0-4.8) k/uL Metamyelocytes # (Man) (0) k/uL Myelocytes # (Manual) (0) k/uL Nucleated RBCs (0-0) /100 WBC PT (9.0-12.0) sec INR (<1.2) BUN (7-17) mg/dL Glucose (74-99) mg/dL POC Glucose (mg/dL) 128 H 105 H 130 H (75-99) mg/dL 02/14/18 02/14/18 02/14/18 Range/Units 03:58 03:58 07:01 WBC 26.9 H* (3.8-10.6) k/uL Hgb 11.3 L (11.4-16.0) gm/dL Neutrophils # (Manual) 25.20 H (1.3-7.7) k/uL Lymphocytes # (Manual) 0.27 L (1.0-4.8) k/uL Metamyelocytes # (Man) 1.61 H (0) k/uL Myelocytes # (Manual) 0.27 H (0) k/uL Nucleated RBCs 1 H (0-0) /100 WBC PT (9.0-12.0) sec INR (<1.2) BUN 19 H (7-17) mg/dL Glucose 112 H (74-99) mg/dL POC Glucose (mg/dL) 129 H (75-99) mg/dL 02/14/18 Range/Units 09:47 WBC (3.8-10.6) k/uL Hgb (11.4-16.0) gm/dL Neutrophils # (Manual) (1.3-7.7) k/uL Lymphocytes # (Manual) (1.0-4.8) k/uL Metamyelocytes # (Man) (0) k/uL Myelocytes # (Manual) (0) k/uL Nucleated RBCs (0-0) /100 WBC PT 13.5 H (9.0-12.0) sec INR 1.4 H (<1.2) BUN (7-17) mg/dL Glucose (74-99) mg/dL POC Glucose (mg/dL) (75-99) mg/dL Microbiology - Last 24 Hours (Table) 02/12/18 12:07 Urine Culture - Final Urine,Clean Catch 02/12/18 10:28 Blood Culture - Preliminary Blood No Growth after 24 hours 02/10/18 09:13 Blood Culture - Preliminary Blood No Growth after 72 hours Assessment and Plan Assessment: Impression/plan: 1. Exacerbation of colitis/free air 2. Possible perianal stricturing unable to examine secondary to tenderness 3. Primary hyperparathyroidism 4. Anxiety 5. Leukocytosis 6. Kidney stones Plan: 1. Patient at this time has an acute surgical abdomen with pneumoperitoneum. I discussed the case with the patient and her mother the patient does have a history of ulcerative colitis and there was some concern that she has perforated colon. I discussed the most likely need to do bowel resection with a temporary ostomy. Patient and her mother understand this. Additionally secondary to the fact that she will surgery scheduled at [place] in the near future where she has has established physicians I have given them the option of transfer to a tertiary care center which they do not wish to do. We have discussed the need for operative exploration and any indicated procedures and their and agreement. They understand the risks and benefits and wish to proceed with surgery.
[2018-02-14] MEDS: MEROPENEM 1 GM in SODIUM CHLORIDE 0.9% 100 ML IVPB SCH ×2 (10:35→18:54)
[2018-02-14] MEDS: INSULIN ASPART 100 UNIT/ML 1 ML 10 ML VIAL SQ SCH ×4 (10:44→21:50)
[2018-02-14] MEDS ORDERED: PROPOFOL 10 MG/ML 20 ML VIAL IV ONE (10:50)
[2018-02-14] MEDS ORDERED: MIDAZOLAM 2 MG/2 ML VIAL ONE (10:50)
[2018-02-14] MEDS ORDERED: ALBUMIN HUMAN 5% 250 ML BOTTLE IVPB ONE (10:50)
[2018-02-14] MEDS ORDERED: VECURONIUM 10 MG VIAL IV ONE (10:50)
[2018-02-14] MEDS ORDERED: LIDOCAINE 1% INJ 10MG/ML (20 ML MDV) ONE (10:50)
[2018-02-14] MEDS ORDERED: SUCCINYLCHOLINE CHLORIDE 100 MG/5 ML SYR IV ONE (10:50)
[2018-02-14] MEDS ORDERED: fentaNYL (PF) 50 MCG/ML 2 ML AMP ONE (10:50)
[2018-02-14] MEDS: HEPARIN SODIUM,PORCINE 5,000 UNIT/ML 1 ML VIAL SQ SCH ×2 (10:50→18:23)
[2018-02-14] MEDS: PANTOPRAZOLE 40 MG/10 ML VIAL IVP SCH (10:55)
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
[2018-02-14] MEDS ORDERED: LACTATED RINGERS 1,000 ML IV ONE ×4 (11:19→14:37)
[2018-02-14 12:00] LABS: Iron Saturation 1.68 (12.00-45.00)
[2018-02-14 12:32] LABS: Glucose,Whole Blood 107 mg/dL (75-99)
[2018-02-14 14:17] LABS: Glucose,Whole Blood 116 mg/dL (75-99)
[2018-02-14] MEDS ORDERED: NALOXONE 0.4 MG/ML 1 ML VIAL IV PRN (15:55)
--- NOTE | 2018-02-14 15:55 | P.OP ---
Date of Procedure: 02/14/18 Preoperative Diagnosis: Pneumoperitoneum acute surgical abdomen Postoperative Diagnosis: Perforated colon at multiple sites, acute colitis Procedure(s) Performed: Rectal exam under anesthesia, exploratory laparotomy, resection of right transverse and descending colon, Buckner's procedure, ileostomy Anesthesia: JESÚS Surgeon: Nisha Beth Estimated Blood Loss (ml): 200 IV fluids (ml): 5,000 Pathology: other (colon) Condition: critical Disposition: ICU Indications for Procedure: Patient surgical abdomen with free air Operative Findings: Feculent peritonitis, multiple areas of perforation of the large intestine with colitis, fimbria bilaterally appeared to be irritated Description of Procedure: Patient was taken to the operating following induction of general anesthesia a rectal exam was performed under anesthesia. The patient was noted to have a posterior chronic anal fissure with exudate in the base. Rectal examination was performed patient was noted to have decreased sphincter tone most likely secondary to the anesthesia but no masses. Following this the patient was placed on her back and the abdomen was prepped and draped in a sterile fashion. A Lama catheter was placed. A midline incision was made through the skin and subcutaneous tissue to the fascia of the anterior abdominal wall. The fascia was opened. The peritoneum was opened. The patient was noted to have extensive contamination with with feculent material as well as what appeared to be dark blood. There was noted to be an opening in the area of the splenic flexure with contamination emanated from the splenic area. The left colon was rotated anteriorly and an area near the junction of the descending colon and sigmoid colon was chosen to be evaluated for resection. This was done using the stapling device. The mesocolon was divided using the LigaSure. Any larger vessels were divided ligating these with the suture. THE DISTAL TRANSVERSE COLON WAS THEN ELEVATED AND THE STAPLING DEVICE WAS PLACED ACROSS THIS AND THE BOWEL WAS DIVIDED AT THE DISTAL TRANSVERSE COLON. The specimen was removed. The specimen was sent to pathology with the pathologist felt that this was severe colitis. FOLLOWING THIS EVALUATION OF THE REMAINDER OF THE COLON REVEALED THAT THE COLITIS WAS ALSO EXTENSIVE AND ADDITIONALLY THE AREA OF THE CECUM and THE RIGHT COLON were involved. Two ADDITIONAL AREAS OF PERFORATION WERE IDENTIFIED WELL MARKED COLITIS THROUGH THE REMAINDER OF THE RIGHT COLON. The area of the sigmond colon extending down into the rectum appeared to be more normal appearing bowel with no evidence of any perforation. INTRAOPERATIVE CONSULTATION WAS OBTAINED WITH DR. GONZALEZ AND AFTER DISCUSSION it was decided THAT IT WAS NECESSARY TO REMOVE THE REMAINDER OF THE TRANSVERSE COLON WELL as the right colon. ALTHOUGH THERE WAS EVIDENCE OF COLITIS IN THE TRANSVERSE COLON it DID NOT LOOK INVOLVED THE AREAS where PERFORATION HAD OCCURRED. AT LEAST 3 AREAS OF PERFORATION WITH SEVERAL OTHER AREAS OF IMPENDING PERFORATION WERE NOTED in the right colon extending up towards the hepatic flexure. There was an area of perforation in the cecum as well as in the more distal right colon. Additionally there was marked colitis of this portion of the colon. The right colon and appendix were elevated. These were freed along the white LINE OF TOLDT. The terminal ileum was evaluated and the mesentery at the area of the terminal ileum was divided using the ligasure, and the terminal ileum was divided using the stapling device. Following this the right colon was dissected free from the white line of Toldt. The bowel was rotated medially. The area of the duodenum was clearly identified near the hepatic flexure and preserved. The mesocolon was divided using the LigaSure being careful to divide any larger vessels using the clamp and oversewing of these vessels. The remainder of the transverse colon and the right colon were removed. A portion of omentum was removed as well. Examination of the peritoneal cavity revealed extensive contamination as previously stated. Additionally the fimbria appeared to be irritated. Contamination down in the pelvis was copiously irrigated. Copious irrigation was performed. Above the liver there was noted to be a phlegmon and this area above the liver was carefully debrided. Irrigation was performed above the spleen. Copious irrigation was performed in the pelvis. After we were assured that hemostasis was attained the small bowel was run from the ligament of Treitz to the terminal ileum. Again there was phlegmon present which was carefully debrided. After this had been accomplished and the abdomen had been well irrigated a opening was made in the right lower quadrant for the ileostomy. The terminal ileum was brought through this opening there was noted to be somewhat dusky and this area of small bowel was therefore resected, using a stapling device. The area of terminal ileum following this was very pink. The patient had a SANDIE drain placed in the left lower quadrant. The SANDIE drain was secured using silk suture. The intra-abdominal wall was then closed using a PDS with interrupted Prolene sutures. A SANDIE drain was placed in the subcutaneous tissues, and secured with a silk suture. The skin was closed using rosie. The patient's ostomy was then matured using 3-0 Vicryl sutures. All instrument and sponge counts were correct at the end of the case. The patient is in guarded condition.
[2018-02-14] MEDS ORDERED: HEPARIN SODIUM,PORCINE 5,000 UNIT/ML 1 ML VIAL SQ SCH (16:00)
[2018-02-14] MEDS ORDERED: PROPOFOL 100 ML IV ONE (16:29)
[2018-02-14] MEDS: PROPOFOL 1,000 MG in EMPTY BAG 1 BAG IV SCH ×2 (16:30→20:33)
[2018-02-14 16:32] LABS: Glucose,Whole Blood 107 mg/dL (75-99)
[2018-02-14 16:45] LABS: HCT 28.9 % (34.0-46.0); Hypochromasia Slight; MCH 28.3 pg (25.0-35.0); MCHC 31.7 g/dL (31.0-37.0); MCV 89.2 fL (80.0-100.0); Mean Platelet Volume 7.6; Platelet Count 276 k/uL (150-450); RBC 3.24 m/uL (3.80-5.40); RDW 12.5 % (11.5-15.5); WBC 5.7 k/uL (3.8-10.6)
[2018-02-14 16:50] LABS: HGB 9.2 gm/dL (11.4-16.0)
[2018-02-14 16:56] LABS: Albumin 2.1 g/dL (3.5-5.0); Chloride 105 mmol/L (98-107); Glucose 106 mg/dL (74-99); Potassium 3.7 mmol/L (3.5-5.1); Total Protein 3.8 g/dL (6.3-8.2)
[2018-02-14 16:58] LABS: ALT 25 U/L (9-52); AST 19 U/L (14-36); Alkaline Phosphatase 50 U/L (38-126); Anion Gap 13 mmol/L; Blood Urea Nitrogen 15 mg/dL (7-17); Calcium 9.1 mg/dL (8.4-10.2); Carbon Dioxide 22 mmol/L (22-30); Magnesium 1.6 mg/dL (1.6-2.3); Sodium 140 mmol/L (137-145)
--- NOTE | 2018-02-14 16:58 | XR ---
EXAMINATION TYPE: XR chest 1V portable DATE OF EXAM: 02/14/2018 COMPARISON: Today HISTORY: Check line placement and tube placement TECHNIQUE: Single frontal view of the chest is obtained. FINDINGS: There is endotracheal tube with the tip 2 cm from the tatianna. There is an infiltrate at th e left lung base behind the heart. There is nasogastric tube that appears in good position. There is right central venous catheter with the tip over the right atrium. There is no pneumothorax. There are chest leads. There is no heart failure. IMPRESSION: Endotracheal tube is slightly low and could be pulled back 1 to 2 cm. There is some mild infiltrate and atelectasis in the left lower lobe similar to exam this morning at 7:45 AM.
[2018-02-14 17:09] LABS: ABG Base Excess -2.4 mmol/L; ABG HCO3 23 mmol/L (21-25); ABG Oxygen Saturation 99.9 % (94-97); ABG PCO2 37 mmHg (35-45); ABG PO2 385 mmHg (83-108); ABG TCO2 24 mmol/L (19-24)
[2018-02-14] MEDS ORDERED: IPRATROPIUM-ALBUTEROL 3 ML NEB INHALATION PRN (17:28)
[2018-02-14] MEDS ORDERED: Magnesium Replacement Protocol 1 EACH MISC MISCELLANE PRN (17:41)
[2018-02-14] MEDS: LORazepam 2 MG/ML INJ IV PRN (17:47)
[2018-02-14 18:08] LABS: Nucleated Red Blood Cells 0 /100 WBC (0-0)
[2018-02-14 18:11] LABS: Metamyelocytes # (M) 0.17 k/uL (0); Metamyelocytes % 3 %; Monocytes # (M) 0.17 k/uL (0-1.0)
[2018-02-14 18:14] LABS: Band Neutrophils % 8 %; Lymphocytes # (M) 0.34 k/uL (1.0-4.8); Myelocytes # (M) 0.57 k/uL (0); Myelocytes % 10 %; Neutrophils % (M) 72 %; Total Cells Counted 200; Toxic Granulation Present
[2018-02-14 18:15] LABS: Poikilocytosis (M) Present; Polychromasia Present
[2018-02-14] MEDS: MAGNESIUM SULFATE-D5W PMX 1 GM in DEXTROSE/WATER 1 100ML.BAG IVPB SCH ×2 (18:23→19:54)
[2018-02-14] MEDS: POTASSIUM CHLORIDE 10 MEQ in WATER FOR INJECTION 1 100ML.BAG IVPB SCH ×2 (18:23→19:53)
[2018-02-14] MEDS: MICAFUNGIN 100 MG in SODIUM CHLORIDE 0.9% 100 ML IVPB SCH (18:24)
--- NOTE | 2018-02-14 18:41 | P.PN ---
Subjective Progress Note Date: 02/14/18 Progress Note Being DIctated For Dr. Gagnon. Interval history: This is a 23-year-old female admitted with acute severe abdominal pain, multifactorial with history of ulcerative colitis and multiple other medical issues. Continues to complain of abdominal pain, perineal pain, rectal pain. Receiving Toradol, morphine, [place], IV steroids. Complains of nausea, no emesis today. Followed by multiple consults. Evaluated by urology regarding left ureter calculus, with further observation recommended at this time. VSS.Maintained on broad-spectrum IV antibiotics as per infectious disease. Afebrile, elevated WBC-on steroids. 02/14/18 patient reports abdominal, perineal, rectal pain increased. No bowel movement, positive nausea, no emesis. Chest x-ray reporting moderate pneumoperitoneum,perforated viscus. Afebrile. Surgery notified,. CT of abdomen and pelvis confirmed new pneumoperitoneum, abdominal pelvic fluid hypertensive and left paracolic her suggestive of perforation and a left-sided polyp possibly near the proximal left colon just past the splenic flexure. Preparing to go to OR. Denies chest pain, palpitations or increased shortness of breath. Review of systems: CONSTITUTIONAL: No fever, positive fatigue. HEENT: No recent visual problems or hearing problems. Denied any sore throat. CARDIOVASCULAR: No chest pain, no palpitations, no syncope. PULMONARY: No shortness of breath, no cough, no hemoptysis. GASTROINTESTINAL: No diarrhea, positive nausea, no vomiting, worsening abdominal pain. Hypoactive bowel sounds. NEUROLOGICAL: No headaches, no weakness, no numbness. HEMATOLOGICAL: Denies any bleeding or petechiae. GENITOURINARY: Denies any burning micturition, frequency, or urgency. MUSCULOSKELETAL/RHEUMATOLOGICAL: Denies any joint pain, swelling, or any muscle pain. ENDOCRINE: Denies any polyuria or polydipsia. PSY; anxious Active Medications Acetaminophen (Tylenol Tab) 650 mg PO Q6HR PRN PRN Reason: Mild Pain or Fever > 100.5 Last Admin: 02/10/18 12:16 Dose: 325 mg Hydrocodone Bitart/Acetaminophen ([place] 5-325) 1 each PO Q4HR PRN PRN Reason: Moderate Pain Last Admin: 02/14/18 06:45 Dose: 1 each Albuterol/Ipratropium (Duoneb 0.5 Mg-3 Mg/3 Ml Soln) 3 ml INHALATION RT-Q2H PRN PRN Reason: Shortness Of Breath Or Wheezing Albuterol/Ipratropium (Duoneb 0.5 Mg-3 Mg/3 Ml Soln) 3 ml INHALATION RT-Q4H [facility] Chlorhexidine Gluconate (Peridex) 15 ml MUCOUS MEM BID JADE Heparin Sodium (Porcine) (Heparin) 5,000 unit SQ Q8HR JADE Last Admin: 02/14/18 18:23 Dose: 5,000 unit Hyoscyamine (Levsin Drops) 0.125 mg PO Q4HR PRN PRN Reason: Secretions Last Admin: 02/14/18 04:44 Dose: 0.125 mg Sodium Chloride (Saline 0.9%) 1,000 mls @ 125 mls/hr IV .Q8H [facility] Last Admin: 02/14/18 17:00 Dose: 125 mls/hr Meropenem 1 gm/ Sodium (Chloride) 100 mls @ 100 mls/hr IVPB Q8HR [facility] Last Admin: 02/14/18 10:35 Dose: 100 mls/hr Micafungin Sodium 100 mg/ (Sodium Chloride) 100 mls @ 100 mls/hr IVPB Q24H [facility] Last Admin: 02/14/18 18:24 Dose: Not Given Acetaminophen 1,000 mg/ IV (Solution) 100 mls @ 400 mls/hr IVPB Q6HR PRN PRN Reason: Fever and/ or Pain Propofol 1,000 mg/ IV Solution 100 mls @ 0 mls/hr IV .Q0M JADE; Titrate PRN Reason: Protocol Magnesium Sulfate/Dextrose 1 (gm/ IV Solution) 100 mls @ 100 mls/hr IVPB Q1H [facility] Stop: 02/14/18 19:44 Last Admin: 02/14/18 18:23 Dose: 100 mls/hr Potassium Chloride 10 meq/ IV (Solution) 100 mls @ 100 mls/hr IVPB Q1H JADE PRN Reason: Protocol Stop: 02/14/18 19:44 Last Admin: 02/14/18 18:23 Dose: 100 mls/hr Insulin Aspart (Novolog) 0 unit SQ ACHS JADE PRN Reason: Protocol Last Admin: 02/14/18 18:27 Dose: Not Given Ketorolac Tromethamine (Toradol) 15 mg IVP Q6HR PRN PRN Reason: Moderate Pain Stop: 02/15/18 10:33 Last Admin: 02/14/18 17:47 Dose: 15 mg Lorazepam (Ativan) 0.5 mg IV Q6HR PRN PRN Reason: Anxiety Last Admin: 02/14/18 17:47 Dose: 0.5 mg Methylprednisolone Sodium Succinate (Solu-Medrol) 60 mg IV Q6HR JADE Last Admin: 02/14/18 18:26 Dose: Not Given Miscellaneous Information (Potassium Per Protocol) 1 each MISCELLANE DAILY PRN ; Protocol PRN Reason: Per Protocol Miscellaneous Information (Magnesium Per Protocol) 1 each MISCELLANE DAILY PRN ; Protocol PRN Reason: Per Protocol Morphine Sulfate (Morphine Sulfate (Inj)) 2 mg IVP Q2HR PRN PRN Reason: Mild to Moderate Pain Last Admin: 02/14/18 08:12 Dose: 2 mg Morphine Sulfate (Morphine Sulfate (Inj)) 4 mg IVP Q4HR PRN PRN Reason: Pain Last Admin: 02/14/18 16:45 Dose: 4 mg Naloxone HCl (Narcan) 0.2 mg IV Q2M PRN PRN Reason: Opioid Reversal Adderall Xr 25mg 25 mg PO QAM JADE Last Admin: 02/14/18 10:50 Dose: Not Given Ondansetron HCl (Zofran) 4 mg IVP Q8HR PRN PRN Reason: Nausea And Vomiting Last Admin: 02/14/18 02:58 Dose: 4 mg Pantoprazole Sodium (Protonix) 40 mg IV DAILY JADE The rest of the 14 point review of systems is negative Objective - Vital Signs Vital signs: Vital Signs Temp 97.4 F L 02/14/18 08:00 Pulse 126 H 02/14/18 10:00 Resp 28 H 02/14/18 10:00 BP 125/62 02/14/18 10:00 Pulse Ox 99 02/14/18 10:00 Intake & Output 02/13/18 02/14/18 02/14/18 18:59 06:59 18:59 Intake Total 1720 1750 4670 Output Total 400 950 700 Balance 7233 314 2678 Weight 94.2 kg 94.2 kg Intake: IV 300 1375 4525 Sodium Chloride 0.9% 1, 1375 625 000 ml @ 125 mls/hr IV . Q8H JADE Rx#:[id number] Sodium Chloride 0.9% 1, 300 000 ml @ 75 mls/hr IV . [id number] JADE Rx#:[id number] Intake, IV Titration 1200 125 100 Amount ACETAMINOPHEN IV (For NPO 100 ) 1,000 mg In Empty Bag 1 bag @ 400 mls/hr IVPB Q6HR PRN Rx#:[id number] Meropenem 1 gm In Sodium 100 Chloride 0.9% 100 ml @ 100 mls/hr IVPB Q8HR JADE Rx#:[id number] Sodium Chloride 0.9% 1, 1000 125 000 ml @ 125 mls/hr IV . Q8H JADE Rx#:[id number] metroNIDAZOLE-NS PMX 500 100 mg In Saline 1 100ml.bag @ 100 mls/hr IVPB Q8H [facility] Rx#:[id number] Oral 220 250 45 Output: Urine 200 950 500 Stool 200 Estimated Blood Loss 200 Other: Voiding Method Toilet Toilet Toilet # Voids 1 1 - Exam PHYSICAL EXAM: VITAL SIGNS: As above GENERAL: Sitting up in bed, tired appearing HEENT: Conjunctivae normal. eyes normal. NECK: No JVD. No thyroid enlargement. No LNs CARDIOVASCULAR: S1, S2 muffled. No murmur RESPIRATION: Breath sounds diminished in the bases. No rhonchi or crackles. No wheezing. ABDOMEN: moderate diffuse tenderness left lower quadrant ,lower mid abdomen, positive guarding, positive rebound. no masses palpable. Hypoactive Bowel sounds. LEGS: No edema. no swelling PSYCHIATRY: Alert and oriented -3, anxious NERVOUS SYSTEM: Cranial N 2-12 grossly normal. Moves all 4 limbs. Diffuse weakness No focal deficits. - Labs CBC & Chem 7: 02/14/18 16:30 02/14/18 16:30 Labs: Abnormal Lab Results - Last 24 Hours (Table) 02/13/18 02/13/18 02/14/18 Range/Units 03:58 20:57 03:58 WBC 26.9 H* (3.8-10.6) k/uL RBC (3.80-5.40) m/uL Hgb 11.3 L (11.4-16.0) gm/dL Hct (34.0-46.0) % Neutrophils # (Manual) 25.20 H (1.3-7.7) k/uL Lymphocytes # (Manual) 0.27 L (1.0-4.8) k/uL Metamyelocytes # (Man) 1.61 H (0) k/uL Myelocytes # (Manual) 0.27 H (0) k/uL Nucleated RBCs 1 H (0-0) /100 WBC PT (9.0-12.0) sec INR (<1.2) ABG pO2 (83-108) mmHg ABG O2 Saturation (94-97) % ABG Lactic Acid (0.5-1.6) mmol/L BUN (7-17) mg/dL Glucose (74-99) mg/dL POC Glucose (mg/dL) 130 H (75-99) mg/dL Iron 3 L (50-170) ug/dL TIBC 179 L (228-460) ug/dL Iron Saturation 1.68 L (12.00-45.00) C-Reactive Protein (<10.0) mg/L Total Protein (6.3-8.2) g/dL Albumin (3.5-5.0) g/dL 02/14/18 02/14/18 02/14/18 Range/Units 03:58 03:58 07:01 WBC (3.8-10.6) k/uL RBC (3.80-5.40) m/uL Hgb (11.4-16.0) gm/dL Hct (34.0-46.0) % Neutrophils # (Manual) (1.3-7.7) k/uL Lymphocytes # (Manual) (1.0-4.8) k/uL Metamyelocytes # (Man) (0) k/uL Myelocytes # (Manual) (0) k/uL Nucleated RBCs (0-0) /100 WBC PT (9.0-12.0) sec INR (<1.2) ABG pO2 (83-108) mmHg ABG O2 Saturation (94-97) % ABG Lactic Acid (0.5-1.6) mmol/L BUN 19 H (7-17) mg/dL Glucose 112 H (74-99) mg/dL POC Glucose (mg/dL) 129 H (75-99) mg/dL Iron (50-170) ug/dL TIBC (228-460) ug/dL Iron Saturation (12.00-45.00) C-Reactive Protein 593.3 H (<10.0) mg/L Total Protein (6.3-8.2) g/dL Albumin (3.5-5.0) g/dL 02/14/18 02/14/18 02/14/18 Range/Units 09:47 12:21 14:07 WBC (3.8-10.6) k/uL RBC (3.80-5.40) m/uL Hgb (11.4-16.0) gm/dL Hct (34.0-46.0) % Neutrophils # (Manual) (1.3-7.7) k/uL Lymphocytes # (Manual) (1.0-4.8) k/uL Metamyelocytes # (Man) (0) k/uL Myelocytes # (Manual) (0) k/uL Nucleated RBCs (0-0) /100 WBC PT 13.5 H (9.0-12.0) sec INR 1.4 H (<1.2) ABG pO2 (83-108) mmHg ABG O2 Saturation (94-97) % ABG Lactic Acid (0.5-1.6) mmol/L BUN (7-17) mg/dL Glucose (74-99) mg/dL POC Glucose (mg/dL) 107 H 116 H (75-99) mg/dL Iron (50-170) ug/dL TIBC (228-460) ug/dL Iron Saturation (12.00-45.00) C-Reactive Protein (<10.0) mg/L Total Protein (6.3-8.2) g/dL Albumin (3.5-5.0) g/dL 02/14/18 02/14/18 02/14/18 Range/Units 16:30 16:30 16:30 WBC (3.8-10.6) k/uL RBC 3.24 L (3.80-5.40) m/uL Hgb 9.2 L D (11.4-16.0) gm/dL Hct 28.9 L (34.0-46.0) % Neutrophils # (Manual) (1.3-7.7) k/uL Lymphocytes # (Manual) (1.0-4.8) k/uL Metamyelocytes # (Man) (0) k/uL Myelocytes # (Manual) (0) k/uL Nucleated RBCs (0-0) /100 WBC PT (9.0-12.0) sec INR (<1.2) ABG pO2 (83-108) mmHg ABG O2 Saturation (94-97) % ABG Lactic Acid (0.5-1.6) mmol/L BUN (7-17) mg/dL Glucose 106 H (74-99) mg/dL POC Glucose (mg/dL) 107 H (75-99) mg/dL Iron (50-170) ug/dL TIBC (228-460) ug/dL Iron Saturation (12.00-45.00) C-Reactive Protein (<10.0) mg/L Total Protein 3.8 L (6.3-8.2) g/dL Albumin 2.1 L (3.5-5.0) g/dL 02/14/18 02/14/18 Range/Units 16:30 16:58 WBC (3.8-10.6) k/uL RBC (3.80-5.40) m/uL Hgb (11.4-16.0) gm/dL Hct (34.0-46.0) % Neutrophils # (Manual) (1.3-7.7) k/uL Lymphocytes # (Manual) (1.0-4.8) k/uL Metamyelocytes # (Man) (0) k/uL Myelocytes # (Manual) (0) k/uL Nucleated RBCs (0-0) /100 WBC PT (9.0-12.0) sec INR (<1.2) ABG pO2 385 H (83-108) mmHg ABG O2 Saturation 99.9 H (94-97) % ABG Lactic Acid 6.1 H* (0.5-1.6) mmol/L BUN (7-17) mg/dL Glucose (74-99) mg/dL POC Glucose (mg/dL) (75-99) mg/dL Iron (50-170) ug/dL TIBC (228-460) ug/dL Iron Saturation (12.00-45.00) C-Reactive Protein (<10.0) mg/L Total Protein (6.3-8.2) g/dL Albumin (3.5-5.0) g/dL Microbiology - Last 24 Hours (Table) 02/12/18 10:28 Blood Culture - Preliminary Blood No Growth after 48 hours 02/10/18 09:13 Blood Culture - Preliminary Blood No Growth after 96 hours Assessment and Plan Assessment: 1. Acute surgical abdomen with New pneumoperitoneum, bowel perforation as per CT, secondary to acute colitis. 2. Rectal dilatation on computed tomography scan 3. Left kidney stone 4. Leukocytosis Plan: Continue on current medication regime ,monitoring and symptomatic treatment. Patient is en route to OR now. Maintain IV antibiotics as per infectious disease. Follow with multiple consults closely. Prognosis guarded given multiple complex medical issues. The impression and plan of care has been dictated as directed. : I performed a history and examination of this patient, discussed the same with the dictator. I agree with the dictator's note ,documented as a scribe. Any additional findings or plans will be noted.
[2018-02-14] MEDS: IPRATROPIUM-ALBUTEROL 3 ML NEB INHALATION SCH ×2 (19:20→23:04)
[2018-02-14] MEDS ORDERED: SODIUM CHLORIDE 0.9% 1,000 ML IV ONE (21:18)
[2018-02-14] MEDS: CHLORHEXIDINE GLUCONATE 15 ML CUP MUCOUS MEM SCH (21:47)
[2018-02-14 21:51] LABS: Glucose,Whole Blood 112 mg/dL (75-99)
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
[2018-02-15] MEDS: ONDANSETRON 4 MG/2 ML VIAL IVP PRN ×2 (00:01→20:47)
[2018-02-15] MEDS: MEROPENEM 1 GM in SODIUM CHLORIDE 0.9% 100 ML IVPB SCH ×3 (00:08→16:58)
[2018-02-15] MEDS: HEPARIN SODIUM,PORCINE 5,000 UNIT/ML 1 ML VIAL SQ SCH ×3 (00:11→16:59)
[2018-02-15] MEDS: methylPREDNISolone SOD SUCCI 125 MG/2 ML VIAL IV SCH ×3 (00:35→20:36)
[2018-02-15] MEDS: SODIUM CHLORIDE 0.9% 1,000 ML IV SCH ×6 (00:36→16:59)
[2018-02-15] MEDS: MORPHINE SULFATE 4 MG/0.8 ML SYRINGE (INJ) IVP PRN ×5 (01:06→20:47)
[2018-02-15] MEDS: PROPOFOL 1,000 MG in EMPTY BAG 1 BAG IV SCH (01:14)
[2018-02-15] MEDS: IPRATROPIUM-ALBUTEROL 3 ML NEB INHALATION SCH ×5 (03:03→20:27)
[2018-02-15] MEDS: KETOROLAC 30 MG/ML 1 ML VIAL IVP PRN (04:17)
[2018-02-15 05:18] LABS: HCT 28.4 % (34.0-46.0); HGB 8.9 gm/dL (11.4-16.0); Hypochromasia Slight; MCHC 31.4 g/dL (31.0-37.0); MCV 89.1 fL (80.0-100.0); Mean Platelet Volume 7.2; Platelet Count 259 k/uL (150-450); RBC 3.19 m/uL (3.80-5.40); RDW 12.7 % (11.5-15.5); WBC 16.9 k/uL (3.8-10.6)
[2018-02-15 05:32] LABS: Appearance,Urine Clear (Clear); Bilirubin,Urine Negative (Negative); Blood,Urine Negative (Negative); Color,Urine Yellow; Glucose,Urine (UA) Negative (Negative); Ketones,Urine Trace (Negative); Leukocyte Esterase,Urine Negative (Negative); Nitrite,Urine Negative (Negative); Protein,Urine Trace (Negative); Specific Gravity,Urine 1.022 (1.001-1.035); Urobilinogen,Urine <2.0 mg/dL (<2.0)
[2018-02-15 05:47] LABS: Anion Gap 7 mmol/L; Blood Urea Nitrogen 15 mg/dL (7-17); Calcium 8.6 mg/dL (8.4-10.2); Carbon Dioxide 27 mmol/L (22-30); Chloride 106 mmol/L (98-107); Glucose 126 mg/dL (74-99); Magnesium 2.3 mg/dL (1.6-2.3); Phosphorus 2.3 mg/dL (2.5-4.5); Potassium 3.9 mmol/L (3.5-5.1); Sodium 140 mmol/L (137-145)
[2018-02-15 06:08] LABS: Band Neutrophils % 18 %; Metamyelocytes # (M) 0.34 k/uL (0); Metamyelocytes % 2 %; Monocytes # (M) 0.51 k/uL (0-1.0); Neutrophils % (M) 77 %; Nucleated Red Blood Cells 0 /100 WBC (0-0); Total Cells Counted 100
[2018-02-15] MEDS ORDERED: POTASSIUM CHLORIDE 10 MEQ in WATER FOR INJECTION 1 100ML.BAG IVPB SCH (06:30)
[2018-02-15] MEDS: POTASSIUM CHLORIDE 10 MEQ in SODIUM CHLORIDE 0.9% 100 ML IVPB SCH ×2 (06:39→09:42)
--- NOTE | 2018-02-15 07:09 | XR ---
EXAMINATION TYPE: XR chest 1V portable DATE OF EXAM: 02/15/2018 COMPARISON: 02/14/2018 HISTORY: Line placement TECHNIQUE: Single frontal view of the chest is obtained. FINDINGS: Central line is seen with the tip near the inferior margin of the right atrium. Bilateral consolidation and pleural effusion stable. NG tube is stable. No pneumothorax. Heart size stable. ET tube approximately 4.7 cm above tatianna. Surgical rosie overlying the abdomen. IMPRESSION: Stable bilateral infiltrate and small effusion.
[2018-02-15 07:18] LABS: ABG Base Excess 3.3 mmol/L; ABG HCO3 28 mmol/L (21-25); ABG Oxygen Saturation 98.2 % (94-97); ABG PCO2 43 mmHg (35-45); ABG PH 7.42 (7.35-7.45); ABG PO2 158 mmHg (83-108); ABG TCO2 29 mmol/L (19-24)
[2018-02-15 07:22] LABS: Glucose,Whole Blood 153 mg/dL (75-99)
[2018-02-15] MEDS: INSULIN ASPART 100 UNIT/ML 1 ML 10 ML VIAL SQ SCH ×4 (09:41→21:15)
[2018-02-15] MEDS: CHLORHEXIDINE GLUCONATE 15 ML CUP MUCOUS MEM SCH (09:44)
[2018-02-15] MEDS: PANTOPRAZOLE 40 MG/10 ML VIAL IV SCH (09:45)
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
[2018-02-15 11:29] LABS: Glucose,Whole Blood 131 mg/dL (75-99)
--- NOTE | 2018-02-15 12:26 | P.PN ---
Subjective Progress Note Date: 02/15/18 Principal diagnosis: abdominal pain rectal bleeding pneumoperitoneum Status post subtotal colectomy with ileostomy yesterday for pneumoperitoneum. Recently extubated. Afebrile. White count 16.9. Hemoglobin 8.9. Receiving intravenous steroids. Objective - Vital Signs Vital signs: Vital Signs Temp 99.2 F 02/15/18 08:00 Pulse 122 H 02/15/18 11:12 Resp 22 02/15/18 11:00 BP 112/68 02/15/18 11:00 Pulse Ox 97 02/15/18 11:00 Intake & Output 02/14/18 02/15/18 02/15/18 18:59 06:59 18:59 Intake Total 5242.6 3143.786 1086.907 Output Total 1075 1370 450 Balance 4167.6 1773.786 636.907 Weight 94.2 kg 86.3 kg Intake: IV 4775 1750 1050 Meropenem 1 gm In Sodium 100 Chloride 0.9% 100 ml @ 100 mls/hr IVPB Q8HR [facility] Rx#:[id number] Potassium Chloride 10 meq 200 In Water For Injection 1 100ml.bag @ 100 mls/hr IVPB Q1H [facility] Rx#: [id number] Sodium Chloride 0.9% 1, 875 1750 750 000 ml @ 150 mls/hr IV . Q6H40M [facility] Rx#:[id number] Intake, IV Titration 422.6 1393.786 36.907 Amount Magnesium Sulfate-D5w Pmx 100 100 1 gm In Dextrose/Water 1 100ml.bag @ 100 mls/hr IVPB Q1H [facility] Rx#: [id number] Meropenem 1 gm In Sodium 200 Chloride 0.9% 100 ml @ 100 mls/hr IVPB Q8HR [facility] Rx#:[id number] Potassium Chloride 10 meq 100 100 In Water For Injection 1 100ml.bag @ 100 mls/hr IVPB Q1H [facility] Rx#: [id number] Propofol 1,000 mg In 22.6 193.786 36.907 Empty Bag 1 bag @ Titrate IV .Q0M [facility] Rx#: [id number] Sodium Chloride 0.9% 1, 1000 000 ml @ 999 mls/hr IV . Q1H1M [facility] Rx#:[id number] Oral 45 Output: Gastric Drainage 250 Drainage 175 325 140 Left Lower Abdomen 175 325 140 Urine 700 795 310 Stool 0 0 Estimated Blood Loss 200 Other: Voiding Method Indwelling Catheter Indwelling Catheter # Bowel Movements 0 ABP, PAP, CO, CI - Last Documented Arterial Blood Pressure 113/62 - Exam General appearance: The patient is alert, oriented, in no acute distress. HET: Head is normocephalic and atraumatic. Pupils are equal and reactive. Oropharynx is clear without lesions. Neck: Supple without lymphadenopathy. Trachea midline. Heart: S1 S2. Regular rate and rhythm. Lungs: No crackles or wheezes are heard. Abdomen: Soft, bloated hypoactive bowel sounds. Ileostomy stoma pink viable no air or stool in bag. SANDIE with cloudy serous drainage. Diffuse mild tenderness across abdomen. Surgical dressings intact. No peritoneal signs. No palpable organomegaly or masses. Extremities: Normal skin color and turgor. No cyanosis, rash, ulceration, clubbing, or edema. Radial and pedal pulses are 2/4 bilaterally. Lama clear sharath urine. Neurological: No focal deficits. Strength and sensation are grossly intact. - Labs CBC & Chem 7: 02/15/18 05:00 02/15/18 05:00 Labs: Abnormal Lab Results - Last 24 Hours (Table) 02/13/18 02/14/18 02/14/18 Range/Units 03:58 12:21 14:07 WBC (3.8-10.6) k/uL RBC (3.80-5.40) m/uL Hgb (11.4-16.0) gm/dL Hct (34.0-46.0) % Neutrophils # (Manual) (1.3-7.7) k/uL Lymphocytes # (Manual) (1.0-4.8) k/uL Metamyelocytes # (Man) (0) k/uL Myelocytes # (Manual) (0) k/uL ABG pO2 (83-108) mmHg ABG HCO3 (21-25) mmol/L ABG Total CO2 (19-24) mmol/L ABG O2 Saturation (94-97) % ABG Lactic Acid (0.5-1.6) mmol/L Glucose (74-99) mg/dL POC Glucose (mg/dL) 107 H 116 H (75-99) mg/dL Phosphorus (2.5-4.5) mg/dL Iron 3 L (50-170) ug/dL TIBC 179 L (228-460) ug/dL Iron Saturation 1.68 L (12.00-45.00) Total Protein (6.3-8.2) g/dL Albumin (3.5-5.0) g/dL Urine Protein (Negative) Urine Ketones (Negative) 02/14/18 02/14/18 02/14/18 Range/Units 16:30 16:30 16:30 WBC (3.8-10.6) k/uL RBC 3.24 L (3.80-5.40) m/uL Hgb 9.2 L D (11.4-16.0) gm/dL Hct 28.9 L (34.0-46.0) % Neutrophils # (Manual) (1.3-7.7) k/uL Lymphocytes # (Manual) 0.34 L (1.0-4.8) k/uL Metamyelocytes # (Man) 0.17 H (0) k/uL Myelocytes # (Manual) 0.57 H (0) k/uL ABG pO2 (83-108) mmHg ABG HCO3 (21-25) mmol/L ABG Total CO2 (19-24) mmol/L ABG O2 Saturation (94-97) % ABG Lactic Acid (0.5-1.6) mmol/L Glucose 106 H (74-99) mg/dL POC Glucose (mg/dL) 107 H (75-99) mg/dL Phosphorus (2.5-4.5) mg/dL Iron (50-170) ug/dL TIBC (228-460) ug/dL Iron Saturation (12.00-45.00) Total Protein 3.8 L (6.3-8.2) g/dL Albumin 2.1 L (3.5-5.0) g/dL Urine Protein (Negative) Urine Ketones (Negative) 02/14/18 02/14/18 02/14/18 Range/Units 16:30 16:58 21:30 WBC (3.8-10.6) k/uL RBC (3.80-5.40) m/uL Hgb (11.4-16.0) gm/dL Hct (34.0-46.0) % Neutrophils # (Manual) (1.3-7.7) k/uL Lymphocytes # (Manual) (1.0-4.8) k/uL Metamyelocytes # (Man) (0) k/uL Myelocytes # (Manual) (0) k/uL ABG pO2 385 H (83-108) mmHg ABG HCO3 (21-25) mmol/L ABG Total CO2 (19-24) mmol/L ABG O2 Saturation 99.9 H (94-97) % ABG Lactic Acid 6.1 H* 1.7 H (0.5-1.6) mmol/L Glucose (74-99) mg/dL POC Glucose (mg/dL) (75-99) mg/dL Phosphorus (2.5-4.5) mg/dL Iron (50-170) ug/dL TIBC (228-460) ug/dL Iron Saturation (12.00-45.00) Total Protein (6.3-8.2) g/dL Albumin (3.5-5.0) g/dL Urine Protein (Negative) Urine Ketones (Negative) 02/14/18 02/15/18 02/15/18 Range/Units 21:49 05:00 05:00 WBC 16.9 H (3.8-10.6) k/uL RBC 3.19 L (3.80-5.40) m/uL Hgb 8.9 L (11.4-16.0) gm/dL Hct 28.4 L (34.0-46.0) % Neutrophils # (Manual) 16.00 H (1.3-7.7) k/uL Lymphocytes # (Manual) (1.0-4.8) k/uL Metamyelocytes # (Man) 0.34 H (0) k/uL Myelocytes # (Manual) (0) k/uL ABG pO2 (83-108) mmHg ABG HCO3 (21-25) mmol/L ABG Total CO2 (19-24) mmol/L ABG O2 Saturation (94-97) % ABG Lactic Acid (0.5-1.6) mmol/L Glucose 126 H (74-99) mg/dL POC Glucose (mg/dL) 112 H (75-99) mg/dL Phosphorus 2.3 L (2.5-4.5) mg/dL Iron (50-170) ug/dL TIBC (228-460) ug/dL Iron Saturation (12.00-45.00) Total Protein (6.3-8.2) g/dL Albumin (3.5-5.0) g/dL Urine Protein (Negative) Urine Ketones (Negative) 02/15/18 02/15/18 02/15/18 Range/Units 05:00 07:16 07:21 WBC (3.8-10.6) k/uL RBC (3.80-5.40) m/uL Hgb (11.4-16.0) gm/dL Hct (34.0-46.0) % Neutrophils # (Manual) (1.3-7.7) k/uL Lymphocytes # (Manual) (1.0-4.8) k/uL Metamyelocytes # (Man) (0) k/uL Myelocytes # (Manual) (0) k/uL ABG pO2 158 H (83-108) mmHg ABG HCO3 28 H (21-25) mmol/L ABG Total CO2 29 H (19-24) mmol/L ABG O2 Saturation 98.2 H (94-97) % ABG Lactic Acid (0.5-1.6) mmol/L Glucose (74-99) mg/dL POC Glucose (mg/dL) 153 H (75-99) mg/dL Phosphorus (2.5-4.5) mg/dL Iron (50-170) ug/dL TIBC (228-460) ug/dL Iron Saturation (12.00-45.00) Total Protein (6.3-8.2) g/dL Albumin (3.5-5.0) g/dL Urine Protein Trace H (Negative) Urine Ketones Trace H (Negative) 02/15/18 Range/Units 11:27 WBC (3.8-10.6) k/uL RBC (3.80-5.40) m/uL Hgb (11.4-16.0) gm/dL Hct (34.0-46.0) % Neutrophils # (Manual) (1.3-7.7) k/uL Lymphocytes # (Manual) (1.0-4.8) k/uL Metamyelocytes # (Man) (0) k/uL Myelocytes # (Manual) (0) k/uL ABG pO2 (83-108) mmHg ABG HCO3 (21-25) mmol/L ABG Total CO2 (19-24) mmol/L ABG O2 Saturation (94-97) % ABG Lactic Acid (0.5-1.6) mmol/L Glucose (74-99) mg/dL POC Glucose (mg/dL) 131 H (75-99) mg/dL Phosphorus (2.5-4.5) mg/dL Iron (50-170) ug/dL TIBC (228-460) ug/dL Iron Saturation (12.00-45.00) Total Protein (6.3-8.2) g/dL Albumin (3.5-5.0) g/dL Urine Protein (Negative) Urine Ketones (Negative) Microbiology - Last 24 Hours (Table) 02/10/18 09:13 Blood Culture - Preliminary Blood No Growth after 120 hours 02/14/18 11:54 Gram Stain - Preliminary Abdomen Wound Culture - Preliminary 02/14/18 11:54 Anaerobic Culture - Preliminary Abdomen 02/12/18 10:28 Blood Culture - Preliminary Blood No Growth after 48 hours Assessment and Plan (1) Pneumoperitoneum Narrative/Plan: Status post subtotal colectomy ileostomy Current Visit: Yes Status: Acute Code(s): K66.8 - OTHER SPECIFIED DISORDERS OF PERITONEUM SNOMED Code(s): 14646434 (2) Abdominal pain Current Visit: Yes Status: Acute Code(s): R10.9 - UNSPECIFIED ABDOMINAL PAIN SNOMED Code(s): 43588465 (3) Exacerbation of ulcerative colitis Current Visit: Yes Status: Acute Code(s): K51.90 - ULCERATIVE COLITIS, UNSPECIFIED, WITHOUT COMPLICATIONS SNOMED Code(s): 077041073 (4) Leukocytosis Current Visit: Yes Status: Acute Code(s): D72.829 - ELEVATED WHITE BLOOD CELL COUNT, UNSPECIFIED SNOMED Code(s): 348158292 Plan: 1. Dr. Dickerson recommends weaning IV steroids to every 12 hour dosing today and then daily dosing tomorrow. Continue supportive measures. General surgery multiple consultants following. Assessment and plan a care discussed with Dr. Dickerson
[2018-02-15] MEDS: MICAFUNGIN 100 MG in SODIUM CHLORIDE 0.9% 100 ML IVPB SCH (13:00)
--- NOTE | 2018-02-15 16:37 | P.PN ---
Subjective Progress Note Date: 02/15/18 Progress Note Being DIctated For Dr. Gagnon. Interval history: This is a 23-year-old female admitted with acute severe abdominal pain, multifactorial with history of ulcerative colitis and multiple other medical issues. Continues to complain of abdominal pain, perineal pain, rectal pain. Receiving Toradol, morphine, [place], IV steroids. Complains of nausea, no emesis today. Followed by multiple consults. Evaluated by urology regarding left ureter calculus, with further observation recommended at this time. VSS.Maintained on broad-spectrum IV antibiotics as per infectious disease. Afebrile, elevated WBC-on steroids. 02/14/18 patient reports abdominal, perineal, rectal pain increased. No bowel movement, positive nausea, no emesis. Chest x-ray reporting moderate pneumoperitoneum,perforated viscus. Afebrile. Surgery notified,. CT of abdomen and pelvis confirmed new pneumoperitoneum, abdominal pelvic fluid hypertensive and left paracolic her suggestive of perforation and a left-sided polyp possibly near the proximal left colon just past the splenic flexure. Preparing to go to OR. Denies chest pain, palpitations or increased shortness of breath. Review of systems: CONSTITUTIONAL: No fever, positive fatigue. HEENT: No recent visual problems or hearing problems. Denied any sore throat. CARDIOVASCULAR: No chest pain, no palpitations, no syncope. PULMONARY: No shortness of breath, no cough, no hemoptysis. GASTROINTESTINAL: No diarrhea, positive nausea, no vomiting, worsening abdominal pain. Hypoactive bowel sounds. NEUROLOGICAL: No headaches, no weakness, no numbness. HEMATOLOGICAL: Denies any bleeding or petechiae. GENITOURINARY: Denies any burning micturition, frequency, or urgency. MUSCULOSKELETAL/RHEUMATOLOGICAL: Denies any joint pain, swelling, or any muscle pain. ENDOCRINE: Denies any polyuria or polydipsia. PSY; anxious Active Medications Acetaminophen (Tylenol Tab) 650 mg PO Q6HR PRN PRN Reason: Mild Pain or Fever > 100.5 Last Admin: 02/10/18 12:16 Dose: 325 mg Hydrocodone Bitart/Acetaminophen ([place] 5-325) 1 each PO Q4HR PRN PRN Reason: Moderate Pain Last Admin: 02/14/18 06:45 Dose: 1 each Albuterol/Ipratropium (Duoneb 0.5 Mg-3 Mg/3 Ml Soln) 3 ml INHALATION RT-Q2H PRN PRN Reason: Shortness Of Breath Or Wheezing Albuterol/Ipratropium (Duoneb 0.5 Mg-3 Mg/3 Ml Soln) 3 ml INHALATION RT-Q4H [facility] Chlorhexidine Gluconate (Peridex) 15 ml MUCOUS MEM BID [facility] Heparin Sodium (Porcine) (Heparin) 5,000 unit SQ Q8HR [facility] Last Admin: 02/14/18 18:23 Dose: 5,000 unit Hyoscyamine (Levsin Drops) 0.125 mg PO Q4HR PRN PRN Reason: Secretions Last Admin: 02/14/18 04:44 Dose: 0.125 mg Sodium Chloride (Saline 0.9%) 1,000 mls @ 125 mls/hr IV .Q8H [facility] Last Admin: 02/14/18 17:00 Dose: 125 mls/hr Meropenem 1 gm/ Sodium (Chloride) 100 mls @ 100 mls/hr IVPB Q8HR [facility] Last Admin: 02/14/18 10:35 Dose: 100 mls/hr Micafungin Sodium 100 mg/ (Sodium Chloride) 100 mls @ 100 mls/hr IVPB Q24H [facility] Last Admin: 02/14/18 18:24 Dose: Not Given Acetaminophen 1,000 mg/ IV (Solution) 100 mls @ 400 mls/hr IVPB Q6HR PRN PRN Reason: Fever and/ or Pain Propofol 1,000 mg/ IV Solution 100 mls @ 0 mls/hr IV .Q0M [facility]; Titrate PRN Reason: Protocol Magnesium Sulfate/Dextrose 1 (gm/ IV Solution) 100 mls @ 100 mls/hr IVPB Q1H [facility] Stop: 02/14/18 19:44 Last Admin: 02/14/18 18:23 Dose: 100 mls/hr Potassium Chloride 10 meq/ IV (Solution) 100 mls @ 100 mls/hr IVPB Q1H [facility] PRN Reason: Protocol Stop: 02/14/18 19:44 Last Admin: 02/14/18 18:23 Dose: 100 mls/hr Insulin Aspart (Novolog) 0 unit SQ ACHS [facility] PRN Reason: Protocol Last Admin: 02/14/18 18:27 Dose: Not Given Ketorolac Tromethamine (Toradol) 15 mg IVP Q6HR PRN PRN Reason: Moderate Pain Stop: 02/15/18 10:33 Last Admin: 02/14/18 17:47 Dose: 15 mg Lorazepam (Ativan) 0.5 mg IV Q6HR PRN PRN Reason: Anxiety Last Admin: 02/14/18 17:47 Dose: 0.5 mg Methylprednisolone Sodium Succinate (Solu-Medrol) 60 mg IV Q6HR [facility] Last Admin: 02/14/18 18:26 Dose: Not Given Miscellaneous Information (Potassium Per Protocol) 1 each MISCELLANE DAILY PRN ; Protocol PRN Reason: Per Protocol Miscellaneous Information (Magnesium Per Protocol) 1 each MISCELLANE DAILY PRN ; Protocol PRN Reason: Per Protocol Morphine Sulfate (Morphine Sulfate (Inj)) 2 mg IVP Q2HR PRN PRN Reason: Mild to Moderate Pain Last Admin: 02/14/18 08:12 Dose: 2 mg Morphine Sulfate (Morphine Sulfate (Inj)) 4 mg IVP Q4HR PRN PRN Reason: Pain Last Admin: 02/14/18 16:45 Dose: 4 mg Naloxone HCl (Narcan) 0.2 mg IV Q2M PRN PRN Reason: Opioid Reversal Adderall Xr 25mg 25 mg PO QAM [facility] Last Admin: 02/14/18 10:50 Dose: Not Given Ondansetron HCl (Zofran) 4 mg IVP Q8HR PRN PRN Reason: Nausea And Vomiting Last Admin: 02/14/18 02:58 Dose: 4 mg Pantoprazole Sodium (Protonix) 40 mg IV DAILY [facility] The rest of the 14 point review of systems is negative status post exploratory laparotomy, resection of right transverse and descending colon, Buckner's procedure, ileostomy. Received fluid bolus during the night for marginal output, borderline hypotension IV fluid hydration at 150 MLS an hour. Potassium replaced. Maintained on Merrem , micafungin, IV steroids. Chest x-ray reporting stable bilateral infiltrates, small effusion.intubation pending. Telemetry sinus tach. Pain management with morphine, Toradol and Ofirmiv. Unable to obtain review of systems, currently on mechanical ventilator Active Medications Acetaminophen (Tylenol Tab) 650 mg PO Q6HR PRN PRN Reason: Mild Pain or Fever > 100.5 Last Admin: 02/10/18 12:16 Dose: 325 mg Hydrocodone Bitart/Acetaminophen ([place] 5-325) 1 each PO Q4HR PRN PRN Reason: Moderate Pain Last Admin: 02/14/18 06:45 Dose: 1 each Albuterol/Ipratropium (Duoneb 0.5 Mg-3 Mg/3 Ml Soln) 3 ml INHALATION RT-Q2H PRN PRN Reason: Shortness Of Breath Or Wheezing Albuterol/Ipratropium (Duoneb 0.5 Mg-3 Mg/3 Ml Soln) 3 ml INHALATION RT-Q4H [facility] Last Admin: 02/15/18 15:44 Dose: 3 ml Chlorhexidine Gluconate (Peridex) 15 ml MUCOUS MEM BID [facility] Last Admin: 02/15/18 09:44 Dose: 15 ml Heparin Sodium (Porcine) (Heparin) 5,000 unit SQ Q8HR [facility] Last Admin: 02/15/18 09:42 Dose: 5,000 unit Hyoscyamine (Levsin Drops) 0.125 mg PO Q4HR PRN PRN Reason: Secretions Last Admin: 02/14/18 04:44 Dose: 0.125 mg Sodium Chloride (Saline 0.9%) 1,000 mls @ 150 mls/hr IV .Q6H40M [facility] Last Admin: 02/15/18 09:45 Dose: 150 mls/hr Meropenem 1 gm/ Sodium (Chloride) 100 mls @ 100 mls/hr IVPB Q8HR [facility] Last Admin: 02/15/18 09:42 Dose: 100 mls/hr Micafungin Sodium 100 mg/ (Sodium Chloride) 100 mls @ 100 mls/hr IVPB Q24H [facility] Last Admin: 02/15/18 13:00 Dose: 100 mls/hr Acetaminophen 1,000 mg/ IV (Solution) 100 mls @ 400 mls/hr IVPB Q6HR PRN PRN Reason: Fever and/ or Pain Last Admin: 02/14/18 23:36 Dose: 400 mls/hr Insulin Aspart (Novolog) 0 unit SQ ACHS [facility] PRN Reason: Protocol Last Admin: 02/15/18 13:00 Dose: 1 unit Lorazepam (Ativan) 0.5 mg IV Q6HR PRN PRN Reason: Anxiety Last Admin: 02/14/18 17:47 Dose: 0.5 mg Methylprednisolone Sodium Succinate (Solu-Medrol) 60 mg IV Q12HR [facility] Miscellaneous Information (Potassium Per Protocol) 1 each MISCELLANE DAILY PRN ; Protocol PRN Reason: Per Protocol Miscellaneous Information (Magnesium Per Protocol) 1 each MISCELLANE DAILY PRN ; Protocol PRN Reason: Per Protocol Morphine Sulfate (Morphine Sulfate (Inj)) 2 mg IVP Q2HR PRN PRN Reason: Mild to Moderate Pain Last Admin: 02/15/18 15:11 Dose: 2 mg Morphine Sulfate (Morphine Sulfate (Inj)) 4 mg IVP Q4HR PRN PRN Reason: Pain Last Admin: 02/15/18 12:50 Dose: 4 mg Naloxone HCl (Narcan) 0.2 mg IV Q2M PRN PRN Reason: Opioid Reversal Adderall Xr 25mg 25 mg PO QAM [facility] Last Admin: 02/15/18 09:44 Dose: Not Given Ondansetron HCl (Zofran) 4 mg IVP Q8HR PRN PRN Reason: Nausea And Vomiting Last Admin: 02/15/18 00:01 Dose: 4 mg Pantoprazole Sodium (Protonix) 40 mg IV DAILY [facility] Last Admin: 02/15/18 09:45 Dose: 40 mg Objective - Vital Signs Vital signs: Vital Signs Temp 99.2 F 02/15/18 08:00 Pulse 116 H 02/15/18 13:00 Resp 26 H 02/15/18 13:00 BP 111/65 02/15/18 13:00 Pulse Ox 97 02/15/18 13:00 Intake & Output 02/14/18 02/15/18 02/15/18 18:59 06:59 18:59 Intake Total 5242.6 3143.786 1486.907 Output Total 1075 1370 575 Balance 4167.6 1773.786 911.907 Weight 94.2 kg 86.3 kg Intake: IV 4775 1750 1450 Meropenem 1 gm In Sodium 100 Chloride 0.9% 100 ml @ 100 mls/hr IVPB Q8HR [facility] Rx#:[id number] Micafungin 100 mg In 100 Sodium Chloride 0.9% 100 ml @ 100 mls/hr IVPB Q24H [facility] Rx#:[id number] Potassium Chloride 10 meq 200 In Water For Injection 1 100ml.bag @ 100 mls/hr IVPB Q1H [facility] Rx#: [id number] Sodium Chloride 0.9% 1, 875 1750 1050 000 ml @ 150 mls/hr IV . Q6H40M [facility] Rx#:[id number] Intake, IV Titration 422.6 1393.786 36.907 Amount Magnesium Sulfate-D5w Pmx 100 100 1 gm In Dextrose/Water 1 100ml.bag @ 100 mls/hr IVPB Q1H [facility] Rx#: [id number] Meropenem 1 gm In Sodium 200 Chloride 0.9% 100 ml @ 100 mls/hr IVPB Q8HR [facility] Rx#:[id number] Potassium Chloride 10 meq 100 100 In Water For Injection 1 100ml.bag @ 100 mls/hr IVPB Q1H [facility] Rx#: [id number] Propofol 1,000 mg In 22.6 193.786 36.907 Empty Bag 1 bag @ Titrate IV .Q0M [facility] Rx#: [id number] Sodium Chloride 0.9% 1, 1000 000 ml @ 999 mls/hr IV . Q1H1M [facility] Rx#:[id number] Oral 45 Output: Gastric Drainage 250 Drainage 175 325 140 Left Lower Abdomen 175 325 140 Urine 700 795 435 Stool 0 0 Estimated Blood Loss 200 Other: Voiding Method Indwelling Catheter Indwelling Catheter # Bowel Movements 0 ABP, PAP, CO, CI - Last Documented Arterial Blood Pressure 120/70 - Exam PHYSICAL EXAM: VITAL SIGNS: As above GENERAL: Sitting up in bed, maintained on mechanical ventilation, mild anxiety HEENT: Conjunctivae normal. eyes normal. Maintained on mechanical ventilator. NECK: No JVD. No thyroid enlargement. No LNs CARDIOVASCULAR: S1, S2 muffled. No murmur RESPIRATION: Breath sounds diminished in the bases. No rhonchi or crackles. No wheezing. ABDOMEN: Status post abdominal surgery, soft, original surgical dressing clean dry and intact, SANDIE with serous drainage. Abdominal binder present.No Bowel sounds. LEGS: No edema. no swelling PSYCHIATRY: Alert , following commands appropriately, awaiting extubation NERVOUS SYSTEM: Moves all 4 limbs. Diffuse weakness No focal deficits. - Labs CBC & Chem 7: 02/15/18 05:00 02/15/18 05:00 Labs: Abnormal Lab Results - Last 24 Hours (Table) 02/13/18 02/14/18 02/14/18 Range/Units 03:58 14:07 16:30 WBC (3.8-10.6) k/uL RBC (3.80-5.40) m/uL Hgb (11.4-16.0) gm/dL Hct (34.0-46.0) % Neutrophils # (Manual) (1.3-7.7) k/uL Lymphocytes # (Manual) (1.0-4.8) k/uL Metamyelocytes # (Man) (0) k/uL Myelocytes # (Manual) (0) k/uL ABG pO2 (83-108) mmHg ABG HCO3 (21-25) mmol/L ABG Total CO2 (19-24) mmol/L ABG O2 Saturation (94-97) % ABG Lactic Acid (0.5-1.6) mmol/L Glucose (74-99) mg/dL POC Glucose (mg/dL) 116 H 107 H (75-99) mg/dL Phosphorus (2.5-4.5) mg/dL Iron 3 L (50-170) ug/dL TIBC 179 L (228-460) ug/dL Iron Saturation 1.68 L (12.00-45.00) Total Protein (6.3-8.2) g/dL Albumin (3.5-5.0) g/dL Urine Protein (Negative) Urine Ketones (Negative) 02/14/1818 02/14/18 Range/Units 16:30 16:30 16:30 WBC (3.8-10.6) k/uL RBC 3.24 L (3.80-5.40) m/uL Hgb 9.2 L D (11.4-16.0) gm/dL Hct 28.9 L (34.0-46.0) % Neutrophils # (Manual) (1.3-7.7) k/uL Lymphocytes # (Manual) 0.34 L (1.0-4.8) k/uL Metamyelocytes # (Man) 0.17 H (0) k/uL Myelocytes # (Manual) 0.57 H (0) k/uL ABG pO2 (83-108) mmHg ABG HCO3 (21-25) mmol/L ABG Total CO2 (19-24) mmol/L ABG O2 Saturation (94-97) % ABG Lactic Acid 6.1 H* (0.5-1.6) mmol/L Glucose 106 H (74-99) mg/dL POC Glucose (mg/dL) (75-99) mg/dL Phosphorus (2.5-4.5) mg/dL Iron (50-170) ug/dL TIBC (228-460) ug/dL Iron Saturation (12.00-45.00) Total Protein 3.8 L (6.3-8.2) g/dL Albumin 2.1 L (3.5-5.0) g/dL Urine Protein (Negative) Urine Ketones (Negative) 02/14/18 02/14/18 02/14/18 Range/Units 16:58 21:30 21:49 WBC (3.8-10.6) k/uL RBC (3.80-5.40) m/uL Hgb (11.4-16.0) gm/dL Hct (34.0-46.0) % Neutrophils # (Manual) (1.3-7.7) k/uL Lymphocytes # (Manual) (1.0-4.8) k/uL Metamyelocytes # (Man) (0) k/uL Myelocytes # (Manual) (0) k/uL ABG pO2 385 H (83-108) mmHg ABG HCO3 (21-25) mmol/L ABG Total CO2 (19-24) mmol/L ABG O2 Saturation 99.9 H (94-97) % ABG Lactic Acid 1.7 H (0.5-1.6) mmol/L Glucose (74-99) mg/dL POC Glucose (mg/dL) 112 H (75-99) mg/dL Phosphorus (2.5-4.5) mg/dL Iron (50-170) ug/dL TIBC (228-460) ug/dL Iron Saturation (12.00-45.00) Total Protein (6.3-8.2) g/dL Albumin (3.5-5.0) g/dL Urine Protein (Negative) Urine Ketones (Negative) 02/15/18 02/15/18 02/15/18 Range/Units 05:00 05:00 05:00 WBC 16.9 H (3.8-10.6) k/uL RBC 3.19 L (3.80-5.40) m/uL Hgb 8.9 L (11.4-16.0) gm/dL Hct 28.4 L (34.0-46.0) % Neutrophils # (Manual) 16.00 H (1.3-7.7) k/uL Lymphocytes # (Manual) (1.0-4.8) k/uL Metamyelocytes # (Man) 0.34 H (0) k/uL Myelocytes # (Manual) (0) k/uL ABG pO2 (83-108) mmHg ABG HCO3 (21-25) mmol/L ABG Total CO2 (19-24) mmol/L ABG O2 Saturation (94-97) % ABG Lactic Acid (0.5-1.6) mmol/L Glucose 126 H (74-99) mg/dL POC Glucose (mg/dL) (75-99) mg/dL Phosphorus 2.3 L (2.5-4.5) mg/dL Iron (50-170) ug/dL TIBC (228-460) ug/dL Iron Saturation (12.00-45.00) Total Protein (6.3-8.2) g/dL Albumin (3.5-5.0) g/dL Urine Protein Trace H (Negative) Urine Ketones Trace H (Negative) 02/15/18 02/15/18 02/15/18 Range/Units 07:16 07:21 11:27 WBC (3.8-10.6) k/uL RBC (3.80-5.40) m/uL Hgb (11.4-16.0) gm/dL Hct (34.0-46.0) % Neutrophils # (Manual) (1.3-7.7) k/uL Lymphocytes # (Manual) (1.0-4.8) k/uL Metamyelocytes # (Man) (0) k/uL Myelocytes # (Manual) (0) k/uL ABG pO2 158 H (83-108) mmHg ABG HCO3 28 H (21-25) mmol/L ABG Total CO2 29 H (19-24) mmol/L ABG O2 Saturation 98.2 H (94-97) % ABG Lactic Acid (0.5-1.6) mmol/L Glucose (74-99) mg/dL POC Glucose (mg/dL) 153 H 131 H (75-99) mg/dL Phosphorus (2.5-4.5) mg/dL Iron (50-170) ug/dL TIBC (228-460) ug/dL Iron Saturation (12.00-45.00) Total Protein (6.3-8.2) g/dL Albumin (3.5-5.0) g/dL Urine Protein (Negative) Urine Ketones (Negative) Microbiology - Last 24 Hours (Table) 02/12/18 10:28 Blood Culture - Preliminary Blood No Growth after 72 hours 02/10/18 09:13 Blood Culture - Preliminary Blood No Growth after 120 hours 02/14/18 11:54 Gram Stain - Preliminary Abdomen Wound Culture - Preliminary 02/14/18 11:54 Anaerobic Culture - Preliminary Abdomen Assessment and Plan Assessment: 1. Acute surgical abdomen with New pneumoperitoneum, bowel perforation as per CT, secondary to ulcerative colitis. Status post exploratory laparotomy, resection of right transverse and descending colon, Buckner's procedure and ileostomy 2. Rectal dilatation on computed tomography scan 3. Left kidney stone 4. Leukocytosis 5. Possible acute on chronic exacerbation ulcerative colitis 6. Primary hyperparathyroidism Plan: Continue on current medication regime , nebulized bronchodilators , monitoring and symptomatic treatment. Extubation pending .Maintain IV antibiotics as per infectious disease. Steroid tapering as per GI. Aggressive pulmonary toileting. Follow with multiple consults closely. Prognosis guarded given multiple complex medical issues. The impression and plan of care has been dictated as directed. : I performed a history and examination of this patient, discussed the same with the dictator. I agree with the dictator's note ,documented as a scribe. Any additional findings or plans will be noted.
--- NOTE | 2018-02-15 16:45 | P.PN ---
Subjective Progress Note Date: 02/15/18 Patient is postop day #1 from exploratory laparotomy for a right, transverse and left colon resection with a Buckner's procedure the patient is extubated at this time . This was done for bowel perforation with peritoneal contamination and severe colitis. She does have some tachycardia however blood pressure is stable at 114/70 respirations 15 O2 sat 97%. Urine output is adequate at 495. White blood cell count 16.9 hemoglobin 8.9 Objective - Vital Signs Vital signs: Vital Signs Temp 99.2 F 02/15/18 08:00 Pulse 119 H 02/15/18 15:56 Resp 15 02/15/18 15:00 BP 114/70 02/15/18 15:00 Pulse Ox 97 02/15/18 15:00 Intake & Output 02/14/18 02/15/18 02/15/18 18:59 06:59 18:59 Intake Total 5242.6 3143.786 1786.907 Output Total 1075 1370 700 Balance 4167.6 3727.394 8576.907 Weight 94.2 kg 86.3 kg 86.3 kg Intake: IV 4775 1750 1750 Meropenem 1 gm In Sodium 100 Chloride 0.9% 100 ml @ 100 mls/hr IVPB Q8HR [facility] Rx#:[id number] Micafungin 100 mg In 100 Sodium Chloride 0.9% 100 ml @ 100 mls/hr IVPB Q24H [facility] Rx#:[id number] Potassium Chloride 10 meq 200 In Water For Injection 1 100ml.bag @ 100 mls/hr IVPB Q1H [facility] Rx#: [id number] Sodium Chloride 0.9% 1, 875 1750 1350 000 ml @ 150 mls/hr IV . Q6H40M [facility] Rx#:[id number] Intake, IV Titration 422.6 1393.786 36.907 Amount Magnesium Sulfate-D5w Pmx 100 100 1 gm In Dextrose/Water 1 100ml.bag @ 100 mls/hr IVPB Q1H [facility] Rx#: [id number] Meropenem 1 gm In Sodium 200 Chloride 0.9% 100 ml @ 100 mls/hr IVPB Q8HR [facility] Rx#:[id number] Potassium Chloride 10 meq 100 100 In Water For Injection 1 100ml.bag @ 100 mls/hr IVPB Q1H [facility] Rx#: [id number] Propofol 1,000 mg In 22.6 193.786 36.907 Empty Bag 1 bag @ Titrate IV .Q0M [facility] Rx#: [id number] Sodium Chloride 0.9% 1, 1000 000 ml @ 999 mls/hr IV . Q1H1M [facility] Rx#:[id number] Oral 45 Output: Gastric Drainage 250 Drainage 175 325 140 Left Lower Abdomen 175 325 140 Urine 700 795 560 Stool 0 0 Estimated Blood Loss 200 Other: Voiding Method Indwelling Catheter Indwelling Catheter Indwelling Catheter # Bowel Movements 0 ABP, PAP, CO, CI - Last Documented Arterial Blood Pressure 130/79 - Constitutional General appearance: Present: average body habitus - Respiratory Details: Decreased breath sounds at bases - Cardiovascular Heart sounds: normal: S1, S2 - Gastrointestinal Gastrointestinal Comment(s): Dressing clean and dry Ostomy pink SANDIE drain 140 mL somewhat cloudy serous fluid - Psychiatric Psychiatric Comment(s): Patient lethargic recently extubated - Labs CBC & Chem 7: 02/15/18 05:00 02/15/18 05:00 Labs: Abnormal Lab Results - Last 24 Hours (Table) 02/14/18 02/14/18 02/14/18 Range/Units 16:30 16:30 16:30 WBC (3.8-10.6) k/uL RBC 3.24 L (3.80-5.40) m/uL Hgb 9.2 L D (11.4-16.0) gm/dL Hct 28.9 L (34.0-46.0) % Neutrophils # (Manual) (1.3-7.7) k/uL Lymphocytes # (Manual) 0.34 L (1.0-4.8) k/uL Metamyelocytes # (Man) 0.17 H (0) k/uL Myelocytes # (Manual) 0.57 H (0) k/uL ABG pO2 (83-108) mmHg ABG HCO3 (21-25) mmol/L ABG Total CO2 (19-24) mmol/L ABG O2 Saturation (94-97) % ABG Lactic Acid 6.1 H* (0.5-1.6) mmol/L Glucose 106 H (74-99) mg/dL POC Glucose (mg/dL) (75-99) mg/dL Phosphorus (2.5-4.5) mg/dL Total Protein 3.8 L (6.3-8.2) g/dL Albumin 2.1 L (3.5-5.0) g/dL Urine Protein (Negative) Urine Ketones (Negative) 02/14/18 02/14/18 02/14/18 Range/Units 16:58 21:30 21:49 WBC (3.8-10.6) k/uL RBC (3.80-5.40) m/uL Hgb (11.4-16.0) gm/dL Hct (34.0-46.0) % Neutrophils # (Manual) (1.3-7.7) k/uL Lymphocytes # (Manual) (1.0-4.8) k/uL Metamyelocytes # (Man) (0) k/uL Myelocytes # (Manual) (0) k/uL ABG pO2 385 H (83-108) mmHg ABG HCO3 (21-25) mmol/L ABG Total CO2 (19-24) mmol/L ABG O2 Saturation 99.9 H (94-97) % ABG Lactic Acid 1.7 H (0.5-1.6) mmol/L Glucose (74-99) mg/dL POC Glucose (mg/dL) 112 H (75-99) mg/dL Phosphorus (2.5-4.5) mg/dL Total Protein (6.3-8.2) g/dL Albumin (3.5-5.0) g/dL Urine Protein (Negative) Urine Ketones (Negative) 02/15/18 02/15/18 02/15/18 Range/Units 05:00 05:00 05:00 WBC 16.9 H (3.8-10.6) k/uL RBC 3.19 L (3.80-5.40) m/uL Hgb 8.9 L (11.4-16.0) gm/dL Hct 28.4 L (34.0-46.0) % Neutrophils # (Manual) 16.00 H (1.3-7.7) k/uL Lymphocytes # (Manual) (1.0-4.8) k/uL Metamyelocytes # (Man) 0.34 H (0) k/uL Myelocytes # (Manual) (0) k/uL ABG pO2 (83-108) mmHg ABG HCO3 (21-25) mmol/L ABG Total CO2 (19-24) mmol/L ABG O2 Saturation (94-97) % ABG Lactic Acid (0.5-1.6) mmol/L Glucose 126 H (74-99) mg/dL POC Glucose (mg/dL) (75-99) mg/dL Phosphorus 2.3 L (2.5-4.5) mg/dL Total Protein (6.3-8.2) g/dL Albumin (3.5-5.0) g/dL Urine Protein Trace H (Negative) Urine Ketones Trace H (Negative) 02/15/18 02/15/18 02/15/18 Range/Units 07:16 07:21 11:27 WBC (3.8-10.6) k/uL RBC (3.80-5.40) m/uL Hgb (11.4-16.0) gm/dL Hct (34.0-46.0) % Neutrophils # (Manual) (1.3-7.7) k/uL Lymphocytes # (Manual) (1.0-4.8) k/uL Metamyelocytes # (Man) (0) k/uL Myelocytes # (Manual) (0) k/uL ABG pO2 158 H (83-108) mmHg ABG HCO3 28 H (21-25) mmol/L ABG Total CO2 29 H (19-24) mmol/L ABG O2 Saturation 98.2 H (94-97) % ABG Lactic Acid (0.5-1.6) mmol/L Glucose (74-99) mg/dL POC Glucose (mg/dL) 153 H 131 H (75-99) mg/dL Phosphorus (2.5-4.5) mg/dL Total Protein (6.3-8.2) g/dL Albumin (3.5-5.0) g/dL Urine Protein (Negative) Urine Ketones (Negative) Microbiology - Last 24 Hours (Table) 02/14/18 11:54 Gram Stain - Preliminary Abdomen Wound Culture - Preliminary Gram Neg Bacilli Group D Enterococcus 02/12/18 10:28 Blood Culture - Preliminary Blood No Growth after 72 hours 02/10/18 09:13 Blood Culture - Preliminary Blood No Growth after 120 hours 02/14/18 11:54 Anaerobic Culture - Preliminary Abdomen Assessment and Plan Assessment: Impression/plan: 1. Exacerbation of colitis/free air postop day #1 from colon resection 2. Possible perianal stricturing unable to examine secondary to tenderness 3. Primary hyperparathyroidism 4. Anxiety 5. Leukocytosis 6. Kidney stones Plan: 1. Continue current postoperative care 2. Continue IV antibiotic therapy 3. Await return of bowel function
[2018-02-15 17:18] LABS: Glucose,Whole Blood 118 mg/dL (75-99)
[2018-02-15] MEDS: LORazepam 2 MG/ML INJ IV PRN (18:57)
[2018-02-15] MEDS: ACETAMINOPHEN IV (For NPO) 1,000 MG in EMPTY BAG 1 BAG IVPB PRN (19:01)
[2018-02-15 20:26] LABS: Glucose,Whole Blood 112 mg/dL (75-99)
[2018-02-15] MEDS ORDERED: methylPREDNISolone SOD SUCCI 125 MG/2 ML VIAL IV SCH (21:00)
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
[2018-02-16] MEDS: MEROPENEM 1 GM in SODIUM CHLORIDE 0.9% 100 ML IVPB SCH ×4 (00:04→23:21)
[2018-02-16] MEDS: SODIUM CHLORIDE 0.9% 1,000 ML IV SCH ×4 (00:04→17:33)
[2018-02-16] MEDS: HEPARIN SODIUM,PORCINE 5,000 UNIT/ML 1 ML VIAL SQ SCH ×4 (00:04→23:21)
[2018-02-16] MEDS: IPRATROPIUM-ALBUTEROL 3 ML NEB INHALATION SCH ×6 (00:32→19:53)
[2018-02-16] MEDS: LORazepam 2 MG/ML INJ IV PRN ×2 (01:00→21:19)
[2018-02-16] MEDS ORDERED: SODIUM CHLORIDE 0.9% 1,000 ML IV ONE ×2 (01:59→12:30)
[2018-02-16] MEDS ORDERED: LORazepam 2 MG/ML INJ IV STA ×2 (01:59→03:01)
[2018-02-16] MEDS ORDERED: DEXMEDETOMIDINE 400 MCG in SODIUM CHLORIDE 0.9% 100 ML IV SCH (03:00)
[2018-02-16 05:37] LABS: Basophils # (A) 0.1 k/uL (0-0.2); Basophils % (A) 0 %; Eosinophils % (A) 0 %; HCT 27.1 % (34.0-46.0); HGB 8.6 gm/dL (11.4-16.0); Hypochromasia Slight; Lymphocytes # (A) 0.3 k/uL (1.0-4.8); Lymphocytes % (A) 2 %; MCH 28.3 pg (25.0-35.0); MCHC 31.6 g/dL (31.0-37.0); MCV 89.6 fL (80.0-100.0); Mean Platelet Volume 6.9; Monocytes # (A) 0.5 k/uL (0-1.0); Monocytes % (A) 2 %; Neutrophils # (A) 20.9 k/uL (1.3-7.7); Neutrophils % (A) 95 %; Platelet Count 168 k/uL (150-450); RBC 3.03 m/uL (3.80-5.40); RDW 12.3 % (11.5-15.5); WBC 21.9 k/uL (3.8-10.6)
[2018-02-16 05:48] LABS: Anion Gap 8 mmol/L; Blood Urea Nitrogen 16 mg/dL (7-17); Calcium 8.9 mg/dL (8.4-10.2); Carbon Dioxide 27 mmol/L (22-30); Chloride 110 mmol/L (98-107); Glucose 120 mg/dL (74-99); Magnesium 2.3 mg/dL (1.6-2.3); Phosphorus 2.5 mg/dL (2.5-4.5); Potassium 3.6 mmol/L (3.5-5.1); Sodium 145 mmol/L (137-145)
[2018-02-16] MEDS: INSULIN ASPART 100 UNIT/ML 1 ML 10 ML VIAL SQ SCH ×5 (07:08→20:26)
[2018-02-16 07:11] LABS: Glucose,Whole Blood 124 mg/dL (75-99)
[2018-02-16] MEDS: POTASSIUM CHLORIDE 10 MEQ in WATER FOR INJECTION 1 100ML.BAG IVPB SCH ×2 (08:25→10:35)
[2018-02-16] MEDS ORDERED: methylPREDNISolone SOD SUCCI 125 MG/2 ML VIAL IV SCH (09:00)
[2018-02-16] MEDS: PANTOPRAZOLE 40 MG/10 ML VIAL IV SCH (09:45)
--- NOTE | 2018-02-16 10:11 | P.PN ---
Subjective Progress Note Date: 02/16/18 Patient is postop day #2 from exploratory laparotomy for a right, transverse and left colon resection with a Buckner's procedure the patient is extubated at this time . This was done for bowel perforation with peritoneal contamination and severe colitis. Patient became agitated yesterday and is sedated today. Patient's blood pressure 122/77, heart rate 92, she is 98% sat. Await blood cell count today is 21.9 elevated from yesterday hemoglobin 8.6. The patient's SANDIE drainage is somewhat turbid and cultures will be obtained of this. Objective - Vital Signs Vital signs: Vital Signs Temp 98.3 F 02/16/18 04:00 Pulse 68 02/16/18 08:43 Resp 19 02/16/18 07:00 BP 122/77 02/16/18 07:00 Pulse Ox 98 02/16/18 08:28 Intake & Output 02/15/18 02/16/18 02/16/18 18:59 06:59 18:59 Intake Total 2336.907 1900 550 Output Total 830 1120 155 Balance 1506.907 780 395 Weight 86.3 kg 88.1 kg Intake: IV 2300 1900 550 ACETAMINOPHEN IV (For NPO 100 ) 1,000 mg In Empty Bag 1 bag @ 400 mls/hr IVPB Q6HR PRN Rx#:[id number] Meropenem 1 gm In Sodium 200 Chloride 0.9% 100 ml @ 100 mls/hr IVPB Q8HR [facility] Rx#:[id number] Micafungin 100 mg In 100 Sodium Chloride 0.9% 100 ml @ 100 mls/hr IVPB Q24H [facility] Rx#:[id number] Potassium Chloride 10 meq 200 In Water For Injection 1 100ml.bag @ 100 mls/hr IVPB Q1H [facility] Rx#: [id number] Potassium Chloride 10 meq 100 In Water For Injection 1 100ml.bag @ 100 mls/hr IVPB Q1H [facility] Rx#: [id number] Sodium Chloride 0.9% 1, 1800 1800 450 000 ml @ 150 mls/hr IV . Q6H40M [facility] Rx#:[id number] Intake, IV Titration 36.907 Amount Propofol 1,000 mg In 36.907 Empty Bag 1 bag @ Titrate IV .Q0M [facility] Rx#: [id number] Output: Drainage 140 250 Left Lower Abdomen 140 250 Urine 690 870 155 Stool 0 0 Other: Voiding Method Indwelling Catheter Indwelling Catheter # Bowel Movements 0 ABP, PAP, CO, CI - Last Documented Arterial Blood Pressure 133/78 - Constitutional General appearance: Present: average body habitus - Respiratory Details: Decreased breath sounds at bases - Cardiovascular Rhythm: regular Heart sounds: normal: S1, S2 - Gastrointestinal Gastrointestinal Comment(s): Incisions clean and dry SANDIE drain somewhat turbid General gastrointestinal: Present: decreased bowel sounds - Labs CBC & Chem 7: 02/16/18 05:15 02/16/18 05:15 Labs: Abnormal Lab Results - Last 24 Hours (Table) 02/15/18 02/15/18 02/15/18 Range/Units 11:27 17:17 20:24 WBC (3.8-10.6) k/uL RBC (3.80-5.40) m/uL Hgb (11.4-16.0) gm/dL Hct (34.0-46.0) % Neutrophils # (1.3-7.7) k/uL Lymphocytes # (1.0-4.8) k/uL Chloride (98-107) mmol/L Creatinine (0.52-1.04) mg/dL Glucose (74-99) mg/dL POC Glucose (mg/dL) 131 H 118 H 112 H (75-99) mg/dL 02/16/18 02/16/18 02/16/18 Range/Units 05:15 05:15 07:07 WBC 21.9 H (3.8-10.6) k/uL RBC 3.03 L (3.80-5.40) m/uL Hgb 8.6 L (11.4-16.0) gm/dL Hct 27.1 L (34.0-46.0) % Neutrophils # 20.9 H (1.3-7.7) k/uL Lymphocytes # 0.3 L (1.0-4.8) k/uL Chloride 110 H (98-107) mmol/L Creatinine 0.50 L (0.52-1.04) mg/dL Glucose 120 H (74-99) mg/dL POC Glucose (mg/dL) 124 H (75-99) mg/dL Microbiology - Last 24 Hours (Table) 02/14/18 11:54 Gram Stain - Preliminary Abdomen Wound Culture - Preliminary Gram Neg Bacilli Group D Enterococcus 02/12/18 10:28 Blood Culture - Preliminary Blood No Growth after 72 hours 02/10/18 09:13 Blood Culture - Preliminary Blood No Growth after 120 hours Assessment and Plan Assessment: Impression/plan: 1. Exacerbation of colitis/free air postop day #2 from colon resection 2. Posterior anal fissure 3. Primary hyperparathyroidism 4. Anxiety 5. Leukocytosis 6. Kidney stones Plan: 1. Continue current postoperative care 2. Continue IV antibiotic therapy 3. Await return of bowel function 4. Cultures from SANDIE drain
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
[2018-02-16] MEDS: MICAFUNGIN 100 MG in SODIUM CHLORIDE 0.9% 100 ML IVPB SCH (11:38)
--- NOTE | 2018-02-16 11:42 | P.PN ---
Subjective Progress Note Date: 02/16/18 Principal diagnosis: abdominal pain rectal bleeding Awake. Afebrile. White count 21.9. Hemoglobin 8.6. IV steroids being weaned. Objective - Vital Signs Vital signs: Vital Signs Temp 98.2 F 02/16/18 08:00 Pulse 53 L 02/16/18 11:00 Resp 20 02/16/18 11:00 BP 138/87 02/16/18 11:00 Pulse Ox 99 02/16/18 11:00 Intake & Output 02/15/18 02/16/18 02/16/18 18:59 06:59 18:59 Intake Total 2336.907 1900 608.593 Output Total 830 1120 155 Balance 1506.907 780 453.593 Weight 86.3 kg 88.1 kg Intake: IV 2300 1900 550 ACETAMINOPHEN IV (For NPO 100 ) 1,000 mg In Empty Bag 1 bag @ 400 mls/hr IVPB Q6HR PRN Rx#:[id number] Meropenem 1 gm In Sodium 200 Chloride 0.9% 100 ml @ 100 mls/hr IVPB Q8HR [facility] Rx#:[id number] Micafungin 100 mg In 100 Sodium Chloride 0.9% 100 ml @ 100 mls/hr IVPB Q24H [facility] Rx#:[id number] Potassium Chloride 10 meq 200 In Water For Injection 1 100ml.bag @ 100 mls/hr IVPB Q1H [facility] Rx#: [id number] Potassium Chloride 10 meq 100 In Water For Injection 1 100ml.bag @ 100 mls/hr IVPB Q1H [facility] Rx#: [id number] Sodium Chloride 0.9% 1, 1800 1800 450 000 ml @ 150 mls/hr IV . Q6H40M [facility] Rx#:[id number] Intake, IV Titration 36.907 58.593 Amount Dexmedetomidine 400 mcg 58.593 In Sodium Chloride 0.9% 100 ml @ Titrate IV .Q0M [facility] Rx#:[id number] Propofol 1,000 mg In 36.907 Empty Bag 1 bag @ Titrate IV .Q0M [facility] Rx#: [id number] Output: Drainage 140 250 Left Lower Abdomen 140 250 Urine 690 870 155 Stool 0 0 Other: Voiding Method Indwelling Catheter Indwelling Catheter # Bowel Movements 0 ABP, PAP, CO, CI - Last Documented Arterial Blood Pressure 145/84 - Exam General appearance: The patient is alert, oriented, in no acute distress. HET: Head is normocephalic and atraumatic. Pupils are equal and reactive. Oropharynx is clear without lesions. Neck: Supple without lymphadenopathy. Trachea midline. Heart: S1 S2. Regular rate and rhythm. Lungs: No crackles or wheezes are heard. Abdomen: Soft, bloated hypoactive bowel sounds. Ileostomy stoma pink viable with scant brown stool in bag. SANDIE with cloudy serous drainage. Diffuse mild tenderness across abdomen. Surgical dressings intact. No peritoneal signs. No palpable organomegaly or masses. Extremities: Normal skin color and turgor. No cyanosis, rash, ulceration, clubbing, or edema. Radial and pedal pulses are 2/4 bilaterally. Lama clear sharath urine. Neurological: No focal deficits. Strength and sensation are grossly intact. - Labs CBC & Chem 7: 02/16/18 05:15 02/16/18 15:35 Labs: Abnormal Lab Results - Last 24 Hours (Table) 02/15/18 02/15/18 02/16/18 Range/Units 17:17 20:24 05:15 WBC 21.9 H (3.8-10.6) k/uL RBC 3.03 L (3.80-5.40) m/uL Hgb 8.6 L (11.4-16.0) gm/dL Hct 27.1 L (34.0-46.0) % Neutrophils # 20.9 H (1.3-7.7) k/uL Lymphocytes # 0.3 L (1.0-4.8) k/uL Chloride (98-107) mmol/L Creatinine (0.52-1.04) mg/dL Glucose (74-99) mg/dL POC Glucose (mg/dL) 118 H 112 H (75-99) mg/dL 02/16/18 02/16/18 Range/Units 05:15 07:07 WBC (3.8-10.6) k/uL RBC (3.80-5.40) m/uL Hgb (11.4-16.0) gm/dL Hct (34.0-46.0) % Neutrophils # (1.3-7.7) k/uL Lymphocytes # (1.0-4.8) k/uL Chloride 110 H (98-107) mmol/L Creatinine 0.50 L (0.52-1.04) mg/dL Glucose 120 H (74-99) mg/dL POC Glucose (mg/dL) 124 H (75-99) mg/dL Microbiology - Last 24 Hours (Table) 02/10/18 09:13 Blood Culture - Final Blood No Growth after 144 hours 02/14/18 11:54 Gram Stain - Preliminary Abdomen Wound Culture - Preliminary Gram Neg Bacilli Group D Enterococcus 02/12/18 10:28 Blood Culture - Preliminary Blood No Growth after 72 hours Assessment and Plan (1) Pneumoperitoneum Narrative/Plan: Status post subtotal colectomy ileostomy Current Visit: Yes Status: Acute Code(s): K66.8 - OTHER SPECIFIED DISORDERS OF PERITONEUM SNOMED Code(s): 87386262 (2) Abdominal pain Current Visit: Yes Status: Acute Code(s): R10.9 - UNSPECIFIED ABDOMINAL PAIN SNOMED Code(s): 74056465 (3) Exacerbation of ulcerative colitis Current Visit: Yes Status: Acute Code(s): K51.90 - ULCERATIVE COLITIS, UNSPECIFIED, WITHOUT COMPLICATIONS SNOMED Code(s): 349003655 (4) Leukocytosis Current Visit: Yes Status: Acute Code(s): D72.829 - ELEVATED WHITE BLOOD CELL COUNT, UNSPECIFIED SNOMED Code(s): 359140929 Plan: 1. NPO. Diet per surgery. 2. Continue to wean IV steroids; last IV dose today then discontinue. Assessment and plan of care discussed with Dr. Dickerson
[2018-02-16 12:06] LABS: Glucose,Whole Blood 124 mg/dL (75-99)
[2018-02-16] MEDS ORDERED: FUROSEMIDE 10 MG/ML 2 ML VIAL IV STA (14:32)
--- NOTE | 2018-02-16 16:28 | PN ---
PROGRESS NOTE DATE OF SERVICE: 02/16/2018 This 23-year-old woman who was admitted after intestinal perforation had surgery. The patient also had bradycardia. At this time, the patient is on broad-spectrum IV antibiotics. Repeat urine culture has been obtained at this time. The patient is extubated. The patient is slightly drowsy. Multiple consultants are following the patient. PAST MEDICAL HISTORY: Past medical reviewed. REVIEW OF SYMPTOMS: Review of systems could not be taken, the patient is slightly drowsy. CURRENT MEDICATIONS: 1. Tylenol 650 q.4h p.r.n. 2. Tylenol p.r.n. 3. [place] 5 mg b.i.d. 4. DuoNeb q.i.d. and p.r.n. 5. Dexamethasone. 6. Heparin. 7. NovoLog. 8. Ativan. 9. Solu-Medrol 60 IV daily. 10.Replacement protocols. 11.Narcan p.r.n. PHYSICAL EXAM: Patient is drowsy, but arousable. Pulse 47, blood pressure is 130/98, respiration 22, temperature 98.2, pulse ox 100% on oxygen. HEENT: Conjunctivae normal. Oral mucosa moist. Neck is no jugular venous distention. No carotid bruit. No lymph node enlargement. Cardiovascular System: S1, S2 muffled. Respiration: Breath sounds diminished in the bases. A few rhonchi. No crackles. ABDOMEN: Soft, status post surgery. Legs are no edema. Nervous system: No focal deficits. LAB STUDIES: WBC 21, hemoglobin is 8.6. ASSESSMENT: 1. Acute surgical abdomen with bowel perforation secondary to ulcerative colitis, status post exploratory laparotomy, dissection of the right transverse colon, descending colon, Kai's procedure in the ileostomy. 2. Rectal dilatation on CT scan. 3. Sinus bradycardia, possibly. 4. Left kidney stone. 5. Leukocytosis. 6. Acute on chronic exacerbation of ulcerative colitis. 7. Primary hyperparathyroidism. 8. Increased WBC. RECOMMENDATIONS AND DISCUSSION: This 23-year-old woman who presented with multiple complex medical issues, we will monitor the patient closely. Continue the current medications, management and symptomatic treatment. Continue broad spectrum IV antibiotics. I will recommend to continue current medications, beta blockers. Serial troponins, EKG, cardiology consultation. Continue steroids. Continue broad-spectrum IV antibiotics. Patient is on Merrem at this time. Follow the cultures. Further recommendations to follow. MMODL / IJN: [id number] /
[2018-02-16 16:29] LABS: Creatine Kinase MB 0.7 ng/mL (0.0-2.4); Troponin I 0.016 ng/mL (0.000-0.034)
[2018-02-16 17:21] LABS: Glucose,Whole Blood 112 mg/dL (75-99)
[2018-02-16] MEDS: ACETAMINOPHEN IV (For NPO) 1,000 MG in EMPTY BAG 1 BAG IVPB PRN (17:33)
--- NOTE | 2018-02-16 18:36 | CONS ---
CONSULTATION Mrs. Hallman is a 23-year-old female who was admitted to the hospital on February 10 with abdominal discomfort and rectal pain. Patient has a history of ulcerative colitis. She was evaluated by Dr. Fabiana Brush and subsequently had free air and underwent surgical intervention with colostomy and Kai's procedure. That was done on February 14. The patient at that time had exploratory laparotomy, resection of right transverse and descending colon and Kai's procedure with ileostomy. She had sinus tachycardia initially. Now she had episode of sinus arrhythmia and sinus bradycardia, and cardiology consultation was requested. The patient is awake, alert, has abdominal discomfort, but has no history of cardiac disease. According to her, breathing has been stable in the past. She had no prior history of chest discomfort. No peripheral edema. No PND, orthopnea, nor syncope. No history of documented arrhythmia. Her coronary risk factors are negative for smoking. She stopped a while ago. She is nondiabetic, not hypertensive. REVIEW OF SYSTEMS: RESPIRATORY SYSTEM: She has no documented history of obstructive lung disease. No history of recent wheezing or cough. GI SYSTEM: She has the abdomen pain and history of colitis in the past. SYSTEM: She has a prior history of left ureteral calculus. NERVOUS SYSTEM: She has no history of stroke or seizure. PAST MEDICAL HISTORY: 1. Ulcerative colitis. 2. Left ureteral calculus. 3. Hyperparathyroidism. PHYSICAL EXAMINATION: She is a 23-year-old female in mild discomfort. Blood pressure 119/70 with a heart rate in the 60s. HEAD: Normocephalic. EYES: Sclerae anicteric. NECK: Good carotid upstroke with an IJ noted on the right side. LUNGS: Clear to auscultation. HEART: Regular rate and rhythm. S1, S2. No S3. No rub. ABDOMEN: Soft, tender. Dressing in place. EXTREMITIES: No edema. LAB DATA: BUN and creatinine of 16 and 0.5, potassium 3.6, troponin 0.016, hemoglobin of 8.6. EKG revealed sinus arrhythmia, rate in the 40s; normal axis and intervals. IMPRESSION: 1. Sinus arrhythmia with episode of bradycardia, asymptomatic. No workup will be needed in that regard. 2. Status post abdominal surgery with colon resection and Kai's procedure. 3. History of colitis. 4. Prior history of nephrolithiasis. RECOMMENDATIONS: From the cardiac standpoint, the sinus arrhythmia does not require any treatment at this time. The variation of her heart rate from before is related to her septic status on presentation. An echocardiogram with Doppler has been ordered and I will review those reports. I discussed those findings with the patient and her family. Thank you for this consult. Will follow with you. JOHNATHON / GHAZAL: [id number] /
[2018-02-16 19:57] LABS: T4, Free (Free Thyroxine) 0.91 ng/dL (0.78-2.19)
[2018-02-16 20:15] LABS: Glucose,Whole Blood 128 mg/dL (75-99)
[2018-02-16] MEDS: MORPHINE SULFATE 4 MG/0.8 ML SYRINGE (INJ) IVP PRN (20:42)
--- NOTE | 2018-02-16 23:00 | XR ---
EXAMINATION TYPE: XR abdomen 1V DATE OF EXAM: 02/16/2018 COMPARISON: 02/02/2018 HISTORY: Postop bowel surgery TECHNIQUE: 2 views FINDINGS: There are skin rosie in the midline abdomen. There is a drain over the upper pelvis. Ther e is some density over the epigastrium which could be artifact. There is air over the left upper quad rant that could relate to pneumoperitoneum. I see no sign of a bowel obstruction. IMPRESSION: No sign of a bowel obstruction. There is probably a pneumoperitoneum that is postoperativ e in the left upper quadrant. There is a new infiltrate probably in the left lower lobe compared to c ompared to old exam.
[2018-02-16] MEDS ORDERED: MAG HYDROX/AL HYDROX/SIMETH 30 ML CUP PO PRN (23:01)
[2018-02-16] MEDS: HYDROcodone/APAP 5-325MG 1 EACH TAB PO PRN (23:20)
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
[2018-02-17] MEDS: MORPHINE SULFATE 4 MG/0.8 ML SYRINGE (INJ) IVP PRN ×6 (00:44→21:31)
[2018-02-17 04:45] LABS: Basophils # (A) 0.1 k/uL (0-0.2); Basophils % (A) 0 %; Eosinophils % (A) 0 %; Hypochromasia Moderate; Lymphocytes # (A) 0.4 k/uL (1.0-4.8); Lymphocytes % (A) 1 %; MCV 90.4 fL (80.0-100.0); Mean Platelet Volume 7.5; Monocytes # (A) 0.8 k/uL (0-1.0); Monocytes % (A) 3 %; Neutrophils # (A) 27.9 k/uL (1.3-7.7); Neutrophils % (A) 95 %; Platelet Count 144 k/uL (150-450); RDW 12.8 % (11.5-15.5)
[2018-02-17 04:56] LABS: Anion Gap 7 mmol/L; Blood Urea Nitrogen 24 mg/dL (7-17); Calcium 8.9 mg/dL (8.4-10.2); Carbon Dioxide 29 mmol/L (22-30); Chloride 108 mmol/L (98-107); Glucose 117 mg/dL (74-99); Magnesium 2.2 mg/dL (1.6-2.3); Phosphorus 2.7 mg/dL (2.5-4.5); Sodium 144 mmol/L (137-145)
[2018-02-17 04:57] LABS: WBC 29.4 k/uL (3.8-10.6)
[2018-02-17] MEDS: SODIUM CHLORIDE 0.9% 1,000 ML IV SCH ×4 (05:22→23:47)
[2018-02-17 07:29] LABS: Glucose,Whole Blood 107 mg/dL (75-99)
[2018-02-17] MEDS: IPRATROPIUM-ALBUTEROL 3 ML NEB INHALATION SCH ×4 (07:38→20:27)
[2018-02-17] MEDS: PANTOPRAZOLE 40 MG/10 ML VIAL IV SCH (08:29)
[2018-02-17] MEDS: MEROPENEM 1 GM in SODIUM CHLORIDE 0.9% 100 ML IVPB SCH ×3 (08:30→23:47)
[2018-02-17] MEDS: HEPARIN SODIUM,PORCINE 5,000 UNIT/ML 1 ML VIAL SQ SCH ×3 (08:30→23:47)
--- NOTE | 2018-02-17 08:30 | ECHOF ---
Referral Reason:bradycardia MEASUREMENTS -------- HEIGHT: 162.6 cm WEIGHT: 88.0 kg BP: 125/75 IVSd: 0.8 cm (0.6 - 1.1) LVIDd: 4.7 cm (3.9 - 5.3) LVPWd: 0.8 cm (0.6 - 1.1) IVSs: 1.5 cm LVIDs: 2.8 cm LVPWs: 1.5 cm Ao Diam: 2.8 cm (2.0 - 3.7) AV Cusp: 1.8 cm (1.5 - 2.6) LA Diam: 3.3 cm (2.7 - 3.8) MV EXCURSION: 15.965 mm (> 18.000) MV EF SLOPE: 105 mm/s (70 - 150) EPSS: 0.3 cm MV E Ector: 0.99 m/s MV DecT: 182 ms MV A Ector: 0.75 m/s MV E/A Ratio: 1.33 RAP: 5.00 mmHg RVSP: 34.73 mmHg FINDINGS -------- Sinus rhythm. This was a technically good study. The left ventricular size is normal. Left ventricular wall thickness is normal. Overall left vent ricular systolic function is normal with, an EF between 55 - 60 %. The right ventricle is normal in size and function. The left atrium is normal in size. The right atrium is normal in size. Dropout seen in the interatrial septum The aortic valve is trileaflet, and appears structurally normal. No aortic stenosis or regurgitation. The mitral valve leaflets are mildly thickened. There is trace mitral regurgitation. Trace tricuspid regurgitation present. The right ventricular systolic pressure, as measured by Dopp ler, is 34.73mmHg. Pulmonic valve appears structurally normal. The aortic root size is normal. There is a trivial pericardial effusion present. CONCLUSIONS -------- 1. Sinus rhythm. 2. This was a technically good study. 3. The left ventricular size is normal. 4. Left ventricular wall thickness is normal. 5. Overall left ventricular systolic function is normal with, an EF between 55 - 60 %. 6. The right ventricle is normal in size and function. 7. The left atrium is normal in size. 8. The right atrium is normal in size. 9. Dropout seen in the interatrial septum- can not rule out PFO/ASD 10. The aortic valve is trileaflet, and appears structurally normal. No aortic stenosis or regurgitat ion. 11. The mitral valve leaflets are mildly thickened. 12. There is trace mitral regurgitation. 13. Trace tricuspid regurgitation present. 14. The right ventricular systolic pressure, as measured by Doppler, is 34.73mmHg. 15. Pulmonic valve appears structurally normal. 16. The aortic root size is normal. 17. There is a trivial pericardial effusion present. INSIDE METER TESTER: Stephanie Lloyd RDCS
[2018-02-17 09:52] VITALS: BMI 34.9
--- NOTE | 2018-02-17 09:58 | P.PN ---
Subjective Progress Note Date: 02/17/18 Principal diagnosis: abdominal pain rectal bleeding Awake. Afebrile. White count 29.4. Hemoglobin 9.0. IV steroids discontinued yesterday. Reports abdominal pain. Ostomy producing dark brown liquid stool. Objective - Vital Signs Vital signs: Vital Signs Temp 97.7 F 02/17/18 04:00 Pulse 72 02/17/18 07:50 Resp 20 02/17/18 07:00 BP 122/79 02/17/18 07:00 Pulse Ox 97 02/17/18 07:00 Intake & Output 02/16/18 02/17/18 02/17/18 18:59 06:59 18:59 Intake Total 3419.560 1750 300 Output Total 1549 685 140 Balance 7887.171 0287 160 Weight 92.4 kg 92.4 kg Intake: IV 3350 1750 300 ACETAMINOPHEN IV (For NPO 100 ) 1,000 mg In Empty Bag 1 bag @ 400 mls/hr IVPB Q6HR PRN Rx#:[id number] Meropenem 1 gm In Sodium 100 100 Chloride 0.9% 100 ml @ 100 mls/hr IVPB Q8HR [facility] Rx#:[id number] Micafungin 100 mg In 100 Sodium Chloride 0.9% 100 ml @ 100 mls/hr IVPB Q24H [facility] Rx#:[id number] Potassium Chloride 10 meq 100 In Water For Injection 1 100ml.bag @ 100 mls/hr IVPB Q1H [facility] Rx#: [id number] Sodium Chloride 0.9% 1, 1950 1650 300 000 ml @ 150 mls/hr IV . Q6H40M [facility] Rx#:[id number] Sodium Chloride 0.9% 1, 1000 000 ml @ 999 mls/hr IV . Q1H1M [facility] Rx#:[id number] Intake, IV Titration 69.560 Amount Dexmedetomidine 400 mcg 69.560 In Sodium Chloride 0.9% 100 ml @ Titrate IV .Q0M [facility] Rx#:[id number] Output: Drainage 134 70 15 Left Lower Abdomen 134 70 15 Urine 1415 615 125 Stool 0 Other: Voiding Method Indwelling Catheter Indwelling Catheter Indwelling Catheter ABP, PAP, CO, CI - Last Documented Arterial Blood Pressure 162/95 - Exam General appearance: The patient is alert, oriented, in no acute distress. HET: Head is normocephalic and atraumatic. Pupils are equal and reactive. Oropharynx is clear without lesions. Neck: Supple without lymphadenopathy. Trachea midline. Heart: S1 S2. Regular rate and rhythm. Lungs: No crackles or wheezes are heard. Abdomen: Soft, bloated hypoactive bowel sounds. Ileostomy dark brown stool in bag unable to assess color of stoma secondary to stool. SANDIE with cloudy serous drainage. Diffuse mild tenderness across abdomen. Surgical dressings intact. No peritoneal signs. No palpable organomegaly or masses. Extremities: Normal skin color and turgor. No cyanosis, rash, ulceration, clubbing, or edema. Radial and pedal pulses are 2/4 bilaterally. Lama clear sharath urine. Neurological: No focal deficits. Strength and sensation are grossly intact. - Labs CBC & Chem 7: 02/17/18 04:30 02/17/18 04:30 Labs: Abnormal Lab Results - Last 24 Hours (Table) 02/16/18 02/16/18 02/16/18 Range/Units 12:04 15:46 17:20 WBC (3.8-10.6) k/uL RBC (3.80-5.40) m/uL Hgb (11.4-16.0) gm/dL Hct (34.0-46.0) % Plt Count (150-450) k/uL Neutrophils # (1.3-7.7) k/uL Lymphocytes # (1.0-4.8) k/uL Chloride (98-107) mmol/L BUN (7-17) mg/dL Creatinine (0.52-1.04) mg/dL Glucose (74-99) mg/dL POC Glucose (mg/dL) 124 H 112 H (75-99) mg/dL TSH 0.102 L (0.465-4.680) mIU/L 02/16/18 02/17/18 02/17/18 Range/Units 20:13 04:30 04:30 WBC 29.4 H* (3.8-10.6) k/uL RBC 3.20 L (3.80-5.40) m/uL Hgb 9.0 L (11.4-16.0) gm/dL Hct 29.0 L (34.0-46.0) % Plt Count 144 L (150-450) k/uL Neutrophils # 27.9 H (1.3-7.7) k/uL Lymphocytes # 0.4 L (1.0-4.8) k/uL Chloride 108 H (98-107) mmol/L BUN 24 H (7-17) mg/dL Creatinine 0.50 L (0.52-1.04) mg/dL Glucose 117 H (74-99) mg/dL POC Glucose (mg/dL) 128 H (75-99) mg/dL TSH (0.465-4.680) mIU/L 02/17/18 Range/Units 07:27 WBC (3.8-10.6) k/uL RBC (3.80-5.40) m/uL Hgb (11.4-16.0) gm/dL Hct (34.0-46.0) % Plt Count (150-450) k/uL Neutrophils # (1.3-7.7) k/uL Lymphocytes # (1.0-4.8) k/uL Chloride (98-107) mmol/L BUN (7-17) mg/dL Creatinine (0.52-1.04) mg/dL Glucose (74-99) mg/dL POC Glucose (mg/dL) 107 H (75-99) mg/dL TSH (0.465-4.680) mIU/L Microbiology - Last 24 Hours (Table) 02/16/18 10:00 Gram Stain - Preliminary [facility] Body Fluid Culture - Preliminary 02/14/18 11:54 Gram Stain - Final Abdomen Wound Culture - Final Escherichia coli Enterococcus faecalis 02/12/18 10:28 Blood Culture - Preliminary Blood No Growth after 96 hours 02/10/18 09:13 Blood Culture - Final Blood No Growth after 144 hours Assessment and Plan (1) Pneumoperitoneum Narrative/Plan: Status post subtotal colectomy ileostomy Current Visit: Yes Status: Acute Code(s): K66.8 - OTHER SPECIFIED DISORDERS OF PERITONEUM SNOMED Code(s): 04786218 (2) Abdominal pain Current Visit: Yes Status: Acute Code(s): R10.9 - UNSPECIFIED ABDOMINAL PAIN SNOMED Code(s): 52614680 (3) Exacerbation of ulcerative colitis Current Visit: Yes Status: Acute Code(s): K51.90 - ULCERATIVE COLITIS, UNSPECIFIED, WITHOUT COMPLICATIONS SNOMED Code(s): 097726646 (4) Leukocytosis Current Visit: Yes Status: Acute Code(s): D72.829 - ELEVATED WHITE BLOOD CELL COUNT, UNSPECIFIED SNOMED Code(s): 459660535 Plan: 1. NPO. Diet per surgery. 2. Steroids have been discontinued and no longer recommended at this time. Continue with postsurgical care. Return to office in 3-4 weeks for reevaluation with Dr. Sexton. We'll follow as needed. Assessment and plan of care discussed with Dr. Dickerson
--- NOTE | 2018-02-17 10:14 | PN ---
PROGRESS NOTE Mrs. Hallman is a 23-year-old female who presented with abdominal discomfort, subsequently was found to have free air and underwent Kai's procedure. She is. She was seen yesterday because of episode of sinus arrhythmia. Her rate has been stable. She denies any chest pain. She has mild dyspnea. No dizziness, palpitation. She has abdominal discomfort. She continues to be at this time on heparin subcu, magnesium supplement, Protonix. PHYSICAL EXAMINATION: Blood pressure 122/70 with a heart rate in the 70s. LUNGS: Clear anteriorly. HEART: Regular rate and rhythm, S1, S2. No S3. No rub. ABDOMEN: Soft. Colostomy in place. EXTREMITIES: No edema. LAB DATA: Revealed a white blood cell of 29.4, hemoglobin of 9. BUN and creatinine 24 and 0.5. Her echocardiogram revealed a preserved ventricular size and systolic function. There was no evidence of significant valvular disease. IMPRESSION: 1. Status post colon resection and Kai's procedure. 2. Sinus arrhythmia, stable. 3. Prior history of colitis. 4. Prior history of nephrolithiasis. RECOMMENDATION: From the cardiac standpoint, I see no evidence of any cardiac issue. Will see her on an as-needed basis. Please feel free to call us for any question. MMODL / IJN: [id number] /
--- NOTE | 2018-02-17 10:16 | P.PN ---
Subjective Progress Note Date: 02/17/18 Patient is postop day #3 from exploratory laparotomy for a right, transverse and left colon resection with a Buckner's procedure the patient is extubated at this time . This was done for bowel perforation with peritoneal contamination and severe colitis. Patient has increasing leukocytosis, SANDIE drain serous drainage appears to be somewhat turbid. Cultures have been sent and these are pending. Objective - Vital Signs Vital signs: Vital Signs Temp 97.7 F 02/17/18 04:00 Pulse 72 02/17/18 07:50 Resp 20 02/17/18 07:00 BP 122/79 02/17/18 07:00 Pulse Ox 97 02/17/18 07:00 Intake & Output 02/16/18 02/17/18 02/17/18 18:59 06:59 18:59 Intake Total 3419.560 1750 300 Output Total 1549 685 140 Balance 2221.375 0679 160 Weight 92.4 kg 92.4 kg Intake: IV 3350 1750 300 ACETAMINOPHEN IV (For NPO 100 ) 1,000 mg In Empty Bag 1 bag @ 400 mls/hr IVPB Q6HR PRN Rx#:[id number] Meropenem 1 gm In Sodium 100 100 Chloride 0.9% 100 ml @ 100 mls/hr IVPB Q8HR [facility] Rx#:[id number] Micafungin 100 mg In 100 Sodium Chloride 0.9% 100 ml @ 100 mls/hr IVPB Q24H [facility] Rx#:[id number] Potassium Chloride 10 meq 100 In Water For Injection 1 100ml.bag @ 100 mls/hr IVPB Q1H [facility] Rx#: [id number] Sodium Chloride 0.9% , 1950 1650 300 000 ml @ 150 mls/hr IV . Q6H40M [facility] Rx#:[id number] Sodium Chloride 0.9% 1, 1000 000 ml @ 999 mls/hr IV . Q1H1M [facility] Rx#:[id number] Intake, IV Titration 69.560 Amount Dexmedetomidine 400 mcg 69.560 In Sodium Chloride 0.9% 100 ml @ Titrate IV .Q0M [facility] Rx#:[id number] Output: Drainage 134 70 15 Left Lower Abdomen 134 70 15 Urine 1415 615 125 Stool 0 Other: Voiding Method Indwelling Catheter Indwelling Catheter Indwelling Catheter ABP, PAP, CO, CI - Last Documented Arterial Blood Pressure 162/95 - Constitutional General appearance: Present: average body habitus - Respiratory Respiratory: bilateral: diminished - Cardiovascular Rhythm: regular Heart sounds: normal: S1, S2 - Gastrointestinal Gastrointestinal Comment(s): Dressing clean and dry SANDIE drain 2 put out blood cultures pending Positive stool in ostomy bag - Psychiatric Psychiatric: Present: appropriate affect - Labs CBC & Chem 7: 02/17/18 04:30 02/17/18 04:30 Labs: Abnormal Lab Results - Last 24 Hours (Table) 02/16/18 02/16/18 02/16/18 Range/Units 12:04 15:46 17:20 WBC (3.8-10.6) k/uL RBC (3.80-5.40) m/uL Hgb (11.4-16.0) gm/dL Hct (34.0-46.0) % Plt Count (150-450) k/uL Neutrophils # (1.3-7.7) k/uL Lymphocytes # (1.0-4.8) k/uL Chloride (98-107) mmol/L BUN (7-17) mg/dL Creatinine (0.52-1.04) mg/dL Glucose (74-99) mg/dL POC Glucose (mg/dL) 124 H 112 H (75-99) mg/dL TSH 0.102 L (0.465-4.680) mIU/L 02/16/18 02/17/18 02/17/18 Range/Units 20:13 04:30 04:30 WBC 29.4 H* (3.8-10.6) k/uL RBC 3.20 L (3.80-5.40) m/uL Hgb 9.0 L (11.4-16.0) gm/dL Hct 29.0 L (34.0-46.0) % Plt Count 144 L (150-450) k/uL Neutrophils # 27.9 H (1.3-7.7) k/uL Lymphocytes # 0.4 L (1.0-4.8) k/uL Chloride 108 H (98-107) mmol/L BUN 24 H (7-17) mg/dL Creatinine 0.50 L (0.52-1.04) mg/dL Glucose 117 H (74-99) mg/dL POC Glucose (mg/dL) 128 H (75-99) mg/dL TSH (0.465-4.680) mIU/L 02/17/18 Range/Units 07:27 WBC (3.8-10.6) k/uL RBC (3.80-5.40) m/uL Hgb (11.4-16.0) gm/dL Hct (34.0-46.0) % Plt Count (150-450) k/uL Neutrophils # (1.3-7.7) k/uL Lymphocytes # (1.0-4.8) k/uL Chloride (98-107) mmol/L BUN (7-17) mg/dL Creatinine (0.52-1.04) mg/dL Glucose (74-99) mg/dL POC Glucose (mg/dL) 107 H (75-99) mg/dL TSH (0.465-4.680) mIU/L Microbiology - Last 24 Hours (Table) 02/16/18 10:00 Gram Stain - Preliminary Herber-Portillo Body Fluid Culture - Preliminary 02/14/18 11:54 Gram Stain - Final Abdomen Wound Culture - Final Escherichia coli Enterococcus faecalis 02/12/18 10:28 Blood Culture - Preliminary Blood No Growth after 96 hours 02/10/18 09:13 Blood Culture - Final Blood No Growth after 144 hours Assessment and Plan Assessment: Impression/plan: 1. Exacerbation of colitis/free air postop day #3 from colon resection 2. Posterior anal fissure 3. Primary hyperparathyroidism 4. Anxiety 5. Leukocytosis 6. Kidney stones Plan: 1. Continue current postoperative care 2. Continue IV antibiotic therapy 3. Await return of bowel function 4. Cultures from SANDIE drain 5. Consider computed tomography scan abdomen and pelvis is patient develops fever or leukocytosis continues
[2018-02-17] MEDS: MICAFUNGIN 100 MG in SODIUM CHLORIDE 0.9% 100 ML IVPB SCH (12:00)
[2018-02-17] MEDS: HYOSCYAMINE ORAL DROPS 1.875 MG/15 ML BOTTLE PO PRN ×2 (12:35→21:31)
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
--- NOTE | 2018-02-17 21:02 | PN ---
PROGRESS NOTE DATE OF SERVICE: 02/17/2018 This 23-year-old woman who was admitted with acute surgical abdomen with bowel perforation secondary to ulcerative colitis is being closely monitored. Patient is extubated. Still complaining of abdominal pain. No chest pain. No palpitations. No fever. On exam, alert and oriented x3. Pulse is 116, blood pressure 132/56, respiration 12, temperature 98.1, pulse ox 94% on 2 L. HEENT: Conjunctivae normal. NECK: No jugular venous distention. CARDIOVASCULAR SYSTEM: S1, S2 muffled. RESPIRATORY SYSTEM: Breath sounds diminished at the bases. A few scattered rhonchi. ABDOMEN: Soft, status post surgery. LEGS: No edema. No swelling. NERVOUS SYSTEM: No focal deficit. LABS: WBC 29.4, hemoglobin 9. ASSESSMENT: 1. Acute surgical abdomen with bowel perforation secondary to ulcerative colitis, status post exploratory laparotomy, resection of the right transverse colon, descending colon, Kai's procedure and ileostomy. 2. Rectal dilatation on the CT scan previously. 3. Sinus bradycardia, possibly. 4. Left kidney stone. 5. Leukocytosis. 6. Acute on chronic exacerbation of ulcerative colitis. 7. Primary hyperparathyroidism history. 8. Increased white count. RECOMMENDATIONS AND DISCUSSION: I recommend to continue current medication, continue symptomatic treatment, continue with pain medication. Continue with the broad-spectrum IV antibiotics. Closely follow with the multiple consultants Otherwise, guarded prognosis. Further recommendations to follow. MMODL / IJN: [id number] /
[2018-02-18] MEDS: MORPHINE SULFATE 4 MG/0.8 ML SYRINGE (INJ) IVP PRN ×10 (00:12→22:38)
[2018-02-18] MEDS: HYDROcodone/APAP 5-325MG 1 EACH TAB PO PRN (01:49)
[2018-02-18] MEDS: HYOSCYAMINE ORAL DROPS 1.875 MG/15 ML BOTTLE PO PRN ×2 (03:55→22:39)
[2018-02-18 04:53] LABS: Basophils # (A) 0.1 k/uL (0-0.2); Basophils % (A) 0 %; Eosinophils # (A) 0.1 k/uL (0-0.7); Eosinophils % (A) 0 %; HGB 8.7 gm/dL (11.4-16.0); Hypochromasia Slight; Lymphocytes % (A) 5 %; MCH 27.5 pg (25.0-35.0); MCHC 31.1 g/dL (31.0-37.0); MCV 88.5 fL (80.0-100.0); Mean Platelet Volume 7.2; Monocytes # (A) 0.6 k/uL (0-1.0); Monocytes % (A) 3 %; Neutrophils # (A) 19.7 k/uL (1.3-7.7); Neutrophils % (A) 92 %; Platelet Count 160 k/uL (150-450); RBC 3.16 m/uL (3.80-5.40); RDW 12.7 % (11.5-15.5); WBC 21.6 k/uL (3.8-10.6)
[2018-02-18 05:00] LABS: Anion Gap 5 mmol/L; Blood Urea Nitrogen 16 mg/dL (7-17); Calcium 8.6 mg/dL (8.4-10.2); Carbon Dioxide 31 mmol/L (22-30); Chloride 102 mmol/L (98-107); Glucose 96 mg/dL (74-99); Magnesium 1.9 mg/dL (1.6-2.3); Phosphorus 2.1 mg/dL (2.5-4.5); Potassium 3.6 mmol/L (3.5-5.1); Sodium 138 mmol/L (137-145)
[2018-02-18] MEDS ORDERED: POTASSIUM PHOSPHATE 10 MMOL in SODIUM CHLORIDE 0.9% 250 ML IV ONE (05:31)
[2018-02-18] MEDS: SODIUM CHLORIDE 0.9% 1,000 ML IV SCH ×3 (06:06→20:19)
[2018-02-18] MEDS: MAGNESIUM SULFATE-D5W PMX 1 GM in DEXTROSE/WATER 1 100ML.BAG IVPB SCH ×2 (06:06→08:41)
[2018-02-18] MEDS: POTASSIUM CHLORIDE 10 MEQ in WATER FOR INJECTION 1 100ML.BAG IVPB SCH ×2 (06:10→08:41)
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
[2018-02-18] MEDS: ACETAMINOPHEN IV (For NPO) 1,000 MG in EMPTY BAG 1 BAG IVPB PRN ×3 (08:16→22:39)
[2018-02-18] MEDS: IPRATROPIUM-ALBUTEROL 3 ML NEB INHALATION SCH ×4 (08:53→19:33)
[2018-02-18] MEDS: LORazepam 2 MG/ML INJ IV PRN ×2 (09:02→20:21)
[2018-02-18] MEDS: HEPARIN SODIUM,PORCINE 5,000 UNIT/ML 1 ML VIAL SQ SCH ×2 (09:54→16:21)
[2018-02-18] MEDS: MEROPENEM 1 GM in SODIUM CHLORIDE 0.9% 100 ML IVPB SCH ×2 (09:54→16:20)
[2018-02-18] MEDS: PANTOPRAZOLE 40 MG/10 ML VIAL IV SCH (09:54)
--- NOTE | 2018-02-18 10:16 | P.PN ---
Subjective Progress Note Date: 02/18/18 Principal diagnosis: Colon perforation Patient remains in the ICU. She remains tachycardic. She is afebrile. White blood cell count down to 21.6. Patient's mother states she is having more pain today. Patient agrees with that assessment. She says her pain is in the front and back. She thinks it may be related to her kidney stone. She is having bilious loose ostomy output. No vomiting. Remains on clear liquids. Objective - Vital Signs Vital signs: Vital Signs Temp 98.4 F 02/18/18 04:00 Pulse 114 H 02/18/18 08:55 Resp 25 H 02/18/18 06:00 BP 135/84 02/18/18 06:00 Pulse Ox 98 02/18/18 06:00 Intake & Output 02/17/18 02/18/18 02/18/18 18:59 06:59 18:59 Intake Total 300 1800 Output Total 835 2910 Balance -535 -1110 Weight 92.4 kg 95.3 kg Intake: IV 300 1800 Sodium Chloride 0.9% 1, 300 1800 000 ml @ 150 mls/hr IV . Q6H40M [facility] Rx#:[id number] Output: Drainage 15 130 Left Lower Abdomen 15 130 Urine 670 2780 Stool 150 Other: Voiding Method Indwelling Catheter Indwelling Catheter ABP, PAP, CO, CI - Last Documented Arterial Blood Pressure 162/95 - Exam Abdomen: Soft, mild distention, mild diffuse tenderness, incision clean and dry , small amount of serosanguineous drainage inferiorly, ostomy pink and functioning - Labs CBC & Chem 7: 02/18/18 01:43 02/18/18 01:43 Labs: Abnormal Lab Results - Last 24 Hours (Table) 02/18/18 02/18/18 Range/Units 01:43 01:43 WBC 21.6 H (3.8-10.6) k/uL RBC 3.16 L (3.80-5.40) m/uL Hgb 8.7 L (11.4-16.0) gm/dL Hct 28.0 L (34.0-46.0) % Neutrophils # 19.7 H (1.3-7.7) k/uL Carbon Dioxide 31 H (22-30) mmol/L Creatinine 0.40 L (0.52-1.04) mg/dL Phosphorus 2.1 L (2.5-4.5) mg/dL Microbiology - Last 24 Hours (Table) 02/12/18 10:28 Blood Culture - Preliminary Blood No Growth after 120 hours 02/14/18 11:54 Anaerobic Culture - Final Abdomen Anaerobic Gm Negative Bacilli Anaerobic Gm Negative Bacilli#2 Assessment and Plan (1) Pneumoperitoneum Narrative/Plan: Patient's Toradol stopped a few days ago. Will resume at 15 mg every 66 doses. Recheck labs tomorrow. If symptoms persist we will consider repeating CT abdomen and pelvis. Current Visit: Yes Status: Acute Code(s): K66.8 - OTHER SPECIFIED DISORDERS OF PERITONEUM SNOMED Code(s): 66955310
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
[2018-02-18] MEDS: MICAFUNGIN 100 MG in SODIUM CHLORIDE 0.9% 100 ML IVPB SCH (12:23)
[2018-02-18] MEDS: KETOROLAC 30 MG/ML 1 ML VIAL IVP SCH ×2 (12:24→18:18)
[2018-02-18] MEDS ORDERED: RX INFO: IV CONTRAST WAS GIVEN 1 EACH MISC MISCELLANE PRN (12:25)
[2018-02-18] MEDS: IOPAMIDOL-300 CONTRAST 30 ML VIAL (ORAL USE) PO PRN ×2 (12:44→13:39)
[2018-02-18 12:46] LABS: Glucose,Whole Blood 88 mg/dL (75-99)
--- NOTE | 2018-02-18 13:42 | P.PN ---
Subjective Progress Note Date: 02/18/18 Progress Note Being DIctated For Dr. Gagnon. Interval history: This is a 23-year-old female admitted with acute severe abdominal pain, multifactorial with history of ulcerative colitis and multiple other medical issues. Continues to complain of abdominal pain, perineal pain, rectal pain. Receiving Toradol, morphine, [place], IV steroids. Complains of nausea, no emesis today. Followed by multiple consults. Evaluated by urology regarding left ureter calculus, with further observation recommended at this time. VSS.Maintained on broad-spectrum IV antibiotics as per infectious disease. Afebrile, elevated WBC-on steroids. 02/14/18 patient reports abdominal, perineal, rectal pain increased. No bowel movement, positive nausea, no emesis. Chest x-ray reporting moderate pneumoperitoneum,perforated viscus. Afebrile. Surgery notified,. CT of abdomen and pelvis confirmed new pneumoperitoneum, abdominal pelvic fluid hypertensive and left paracolic her suggestive of perforation and a left-sided polyp possibly near the proximal left colon just past the splenic flexure. Preparing to go to OR. Denies chest pain, palpitations or increased shortness of breath. Review of systems: CONSTITUTIONAL: No fever, positive fatigue. HEENT: No recent visual problems or hearing problems. Denied any sore throat. CARDIOVASCULAR: No chest pain, no palpitations, no syncope. PULMONARY: No shortness of breath, no cough, no hemoptysis. GASTROINTESTINAL: No diarrhea, positive nausea, no vomiting, worsening abdominal pain. Hypoactive bowel sounds. NEUROLOGICAL: No headaches, no weakness, no numbness. HEMATOLOGICAL: Denies any bleeding or petechiae. GENITOURINARY: Denies any burning micturition, frequency, or urgency. MUSCULOSKELETAL/RHEUMATOLOGICAL: Denies any joint pain, swelling, or any muscle pain. ENDOCRINE: Denies any polyuria or polydipsia. PSY; anxious Active Medications Acetaminophen (Tylenol Tab) 650 mg PO Q6HR PRN PRN Reason: Mild Pain or Fever > 100.5 Last Admin: 02/10/18 12:16 Dose: 325 mg Hydrocodone Bitart/Acetaminophen ([place] 5-325) 1 each PO Q4HR PRN PRN Reason: Moderate Pain Last Admin: 02/14/18 06:45 Dose: 1 each Albuterol/Ipratropium (Duoneb 0.5 Mg-3 Mg/3 Ml Soln) 3 ml INHALATION RT-Q2H PRN PRN Reason: Shortness Of Breath Or Wheezing Albuterol/Ipratropium (Duoneb 0.5 Mg-3 Mg/3 Ml Soln) 3 ml INHALATION RT-Q4H [facility] Chlorhexidine Gluconate (Peridex) 15 ml MUCOUS MEM BID JADE Heparin Sodium (Porcine) (Heparin) 5,000 unit SQ Q8HR JADE Last Admin: 02/14/18 18:23 Dose: 5,000 unit Hyoscyamine (Levsin Drops) 0.125 mg PO Q4HR PRN PRN Reason: Secretions Last Admin: 02/14/18 04:44 Dose: 0.125 mg Sodium Chloride (Saline 0.9%) 1,000 mls @ 125 mls/hr IV .Q8H [facility] Last Admin: 02/14/18 17:00 Dose: 125 mls/hr Meropenem 1 gm/ Sodium (Chloride) 100 mls @ 100 mls/hr IVPB Q8HR [facility] Last Admin: 02/14/18 10:35 Dose: 100 mls/hr Micafungin Sodium 100 mg/ (Sodium Chloride) 100 mls @ 100 mls/hr IVPB Q24H [facility] Last Admin: 02/14/18 18:24 Dose: Not Given Acetaminophen 1,000 mg/ IV (Solution) 100 mls @ 400 mls/hr IVPB Q6HR PRN PRN Reason: Fever and/ or Pain Propofol 1,000 mg/ IV Solution 100 mls @ 0 mls/hr IV .Q0M JADE; Titrate PRN Reason: Protocol Magnesium Sulfate/Dextrose 1 (gm/ IV Solution) 100 mls @ 100 mls/hr IVPB Q1H [facility] Stop: 02/14/18 19:44 Last Admin: 02/14/18 18:23 Dose: 100 mls/hr Potassium Chloride 10 meq/ IV (Solution) 100 mls @ 100 mls/hr IVPB Q1H [facility] PRN Reason: Protocol Stop: 02/14/18 19:44 Last Admin: 02/14/18 18:23 Dose: 100 mls/hr Insulin Aspart (Novolog) 0 unit SQ ACHS [facility]ADE PRN Reason: Protocol Last Admin: 02/14/18 18:27 Dose: Not Given Ketorolac Tromethamine (Toradol) 15 mg IVP Q6HR PRN PRN Reason: Moderate Pain Stop: 02/15/18 10:33 Last Admin: 02/14/18 17:47 Dose: 15 mg Lorazepam (Ativan) 0.5 mg IV Q6HR PRN PRN Reason: Anxiety Last Admin: 02/14/18 17:47 Dose: 0.5 mg Methylprednisolone Sodium Succinate (Solu-Medrol) 60 mg IV Q6HR JADE Last Admin: 02/14/18 18:26 Dose: Not Given Miscellaneous Information (Potassium Per Protocol) 1 each MISCELLANE DAILY PRN ; Protocol PRN Reason: Per Protocol Miscellaneous Information (Magnesium Per Protocol) 1 each MISCELLANE DAILY PRN ; Protocol PRN Reason: Per Protocol Morphine Sulfate (Morphine Sulfate (Inj)) 2 mg IVP Q2HR PRN PRN Reason: Mild to Moderate Pain Last Admin: 02/14/18 08:12 Dose: 2 mg Morphine Sulfate (Morphine Sulfate (Inj)) 4 mg IVP Q4HR PRN PRN Reason: Pain Last Admin: 02/14/18 16:45 Dose: 4 mg Naloxone HCl (Narcan) 0.2 mg IV Q2M PRN PRN Reason: Opioid Reversal Adderall Xr 25mg 25 mg PO QAM [facility] Last Admin: 02/14/18 10:50 Dose: Not Given Ondansetron HCl (Zofran) 4 mg IVP Q8HR PRN PRN Reason: Nausea And Vomiting Last Admin: 02/14/18 02:58 Dose: 4 mg Pantoprazole Sodium (Protonix) 40 mg IV DAILY JADE The rest of the 14 point review of systems is negative status post exploratory laparotomy, resection of right transverse and descending colon, Buckner's procedure, ileostomy. Received fluid bolus during the night for marginal output, borderline hypotension IV fluid hydration at 150 MLS an hour. Potassium replaced. Maintained on Merrem , micafungin, IV steroids. Chest x-ray reporting stable bilateral infiltrates, small effusion.intubation pending. Telemetry sinus tach. Pain management with morphine, Toradol and Ofirmiv. Unable to obtain review of systems, currently on mechanical ventilator Active Medications Acetaminophen (Tylenol Tab) 650 mg PO Q6HR PRN PRN Reason: Mild Pain or Fever > 100.5 Last Admin: 02/10/18 12:16 Dose: 325 mg Hydrocodone Bitart/Acetaminophen ([place] 5-325) 1 each PO Q4HR PRN PRN Reason: Moderate Pain Last Admin: 02/14/18 06:45 Dose: 1 each Albuterol/Ipratropium (Duoneb 0.5 Mg-3 Mg/3 Ml Soln) 3 ml INHALATION RT-Q2H PRN PRN Reason: Shortness Of Breath Or Wheezing Albuterol/Ipratropium (Duoneb 0.5 Mg-3 Mg/3 Ml Soln) 3 ml INHALATION RT-Q4H [facility] Last Admin: 02/15/18 15:44 Dose: 3 ml Chlorhexidine Gluconate (Peridex) 15 ml MUCOUS MEM BID [facility] Last Admin: 02/15/18 09:44 Dose: 15 ml Heparin Sodium (Porcine) (Heparin) 5,000 unit SQ Q8HR [facility] Last Admin: 02/15/18 09:42 Dose: 5,000 unit Hyoscyamine (Levsin Drops) 0.125 mg PO Q4HR PRN PRN Reason: Secretions Last Admin: 02/14/18 04:44 Dose: 0.125 mg Sodium Chloride (Saline 0.9%) 1,000 mls @ 150 mls/hr IV .Q6H40M [facility] Last Admin: 02/15/18 09:45 Dose: 150 mls/hr Meropenem 1 gm/ Sodium (Chloride) 100 mls @ 100 mls/hr IVPB Q8HR [facility] Last Admin: 02/15/18 09:42 Dose: 100 mls/hr Micafungin Sodium 100 mg/ (Sodium Chloride) 100 mls @ 100 mls/hr IVPB Q24H [facility] Last Admin: 02/15/18 13:00 Dose: 100 mls/hr Acetaminophen 1,000 mg/ IV (Solution) 100 mls @ 400 mls/hr IVPB Q6HR PRN PRN Reason: Fever and/ or Pain Last Admin: 02/14/18 23:36 Dose: 400 mls/hr Insulin Aspart (Novolog) 0 unit SQ ACHS [facility] PRN Reason: Protocol Last Admin: 02/15/18 13:00 Dose: 1 unit Lorazepam (Ativan) 0.5 mg IV Q6HR PRN PRN Reason: Anxiety Last Admin: 02/14/18 17:47 Dose: 0.5 mg Methylprednisolone Sodium Succinate (Solu-Medrol) 60 mg IV Q12HR [facility] Miscellaneous Information (Potassium Per Protocol) 1 each MISCELLANE DAILY PRN ; Protocol PRN Reason: Per Protocol Miscellaneous Information (Magnesium Per Protocol) 1 each MISCELLANE DAILY PRN ; Protocol PRN Reason: Per Protocol Morphine Sulfate (Morphine Sulfate (Inj)) 2 mg IVP Q2HR PRN PRN Reason: Mild to Moderate Pain Last Admin: 02/15/18 15:11 Dose: 2 mg Morphine Sulfate (Morphine Sulfate (Inj)) 4 mg IVP Q4HR PRN PRN Reason: Pain Last Admin: 02/15/18 12:50 Dose: 4 mg Naloxone HCl (Narcan) 0.2 mg IV Q2M PRN PRN Reason: Opioid Reversal Adderall Xr 25mg 25 mg PO QAM [facility] Last Admin: 02/15/18 09:44 Dose: Not Given Ondansetron HCl (Zofran) 4 mg IVP Q8HR PRN PRN Reason: Nausea And Vomiting Last Admin: 02/15/18 00:01 Dose: 4 mg Pantoprazole Sodium (Protonix) 40 mg IV DAILY [facility] Last Admin: 02/15/18 09:45 Dose: 40 mg 02/18/2018 complaining of abdominal pain, evaluated further by surgery, Toradol resumed. Afebrile, WBC trending down currently 21.6. Minimal intake of clear liquids this morning. IV fluids of 0.9 at 150 an hour. Potassium, magnesium and phosphorus and supplemented. Sinus tachycardia. Wound cultures positive for E. coli, enterococcus faecalis, SANDIE drain cultures positive for gram- negative bacilli, group D enterococcus .Maintained on IV antibiotics of Merrem, micafungin gentleman as per ID. Incentive spirometer up to 750. Denies cough, shortness of breath. Objective - Vital Signs Vital signs: Vital Signs Temp 98.4 F 02/18/18 04:00 Pulse 114 H 02/18/18 08:55 Resp 25 H 02/18/18 06:00 BP 135/84 02/18/18 06:00 Pulse Ox 98 02/18/18 06:00 Intake & Output 02/17/18 02/18/18 02/18/18 18:59 06:59 18:59 Intake Total 300 1800 Output Total 835 2910 Balance -535 -1110 Weight 92.4 kg 95.3 kg Intake: IV 300 1800 Sodium Chloride 0.9% 1, 300 1800 000 ml @ 150 mls/hr IV . Q6H40M [facility] Rx#:[id number] Output: Drainage 15 130 Left Lower Abdomen 15 130 Urine 670 2780 Stool 150 Other: Voiding Method Indwelling Catheter Indwelling Catheter ABP, PAP, CO, CI - Last Documented Arterial Blood Pressure 162/95 - Exam PHYSICAL EXAM: VITAL SIGNS: As above GENERAL: Sitting up in bed, no acute distress HEENT: Conjunctivae normal. eyes normal. Oral mucosa moist NECK: No JVD. No thyroid enlargement. No LNs CARDIOVASCULAR: S1, S2 muffled. No murmur RESPIRATION: Breath sounds diminished in the bases. No rhonchi , no crackles. No wheezing. ABDOMEN: Status post abdominal surgery, soft, dressing clean dry and intact, SANDIE with purulent /serous drainage. [place] with serous drainage, ostomy with loose bilious drainage .Abdominal binder present. Positive Bowel sounds. LEGS: No edema. no swelling NERVOUS SYSTEM: Moves all 4 limbs. Diffuse weakness No focal deficits. Microbiology 02/12/18 10:28 Blood Blood Culture - Final No Growth after 144 hours 02/16/18 10:00 Herber-[place] Gram Stain - Preliminary 02/16/18 10:00 Herber-[place] Body Fluid Culture - Preliminary Gram Neg Bacilli Group D Enterococcus 02/14/18 11:54 Abdomen Anaerobic Culture - Final Anaerobic Gm Negative Bacilli Anaerobic Gm Negative Bacilli#2 02/14/18 11:54 Abdomen Gram Stain - Final 02/14/18 11:54 Abdomen Wound Culture - Final Escherichia coli Enterococcus faecalis 02/10/18 09:13 Blood Blood Culture - Final No Growth after 144 hours 02/12/18 12:07 Urine,Clean Catch Urine Culture - Final - Labs CBC & Chem 7: 02/18/18 01:43 02/18/18 01:43 Labs: Abnormal Lab Results - Last 24 Hours (Table) 02/18/18 02/18/18 Range/Units 01:43 01:43 WBC 21.6 H (3.8-10.6) k/uL RBC 3.16 L (3.80-5.40) m/uL Hgb 8.7 L (11.4-16.0) gm/dL Hct 28.0 L (34.0-46.0) % Neutrophils # 19.7 H (1.3-7.7) k/uL Carbon Dioxide 31 H (22-30) mmol/L Creatinine 0.40 L (0.52-1.04) mg/dL Phosphorus 2.1 L (2.5-4.5) mg/dL Microbiology - Last 24 Hours (Table) 02/12/18 10:28 Blood Culture - Final Blood No Growth after 144 hours 02/16/18 10:00 Gram Stain - Preliminary Herber-[place]illo Body Fluid Culture - Preliminary Gram Neg Bacilli Group D Enterococcus 02/14/18 11:54 Anaerobic Culture - Final Abdomen Anaerobic Gm Negative Bacilli Anaerobic Gm Negative Bacilli#2 Assessment and Plan Assessment: 1. Acute surgical abdomen with New pneumoperitoneum, bowel perforation as per CT, secondary to ulcerative colitis. Status post exploratory laparotomy, resection of right transverse and descending colon, Buckner's procedure and ileostomy 2. Rectal dilatation on computed tomography scan 3. Left kidney stone 4. Leukocytosis 5. acute on chronic exacerbation ulcerative colitis 6. Primary hyperparathyroidism Plan: Continue on current medication regime , nebulized bronchodilators , monitoring and symptomatic treatment. Maintain IV antibiotics as per infectious disease. Aggressive pulmonary toileting. Pain management, Toradol resumed as per surgery with potential repeat CT of abdomen tomorrow if no improvement. Follow with multiple consults closely. Prognosis guarded given multiple complex medical issues. The impression and plan of care has been dictated as directed. : I performed a history and examination of this patient, discussed the same with the dictator. I agree with the dictator's note ,documented as a scribe. Any additional findings or plans will be noted.
--- NOTE | 2018-02-18 15:17 | CT ---
EXAMINATION TYPE: CT abdomen pelvis w con DATE OF EXAM: 02/18/2018 COMPARISON: 02/14/2013 HISTORY: 23-year-old female with abdominal pain, Ulcerative Colitis TECHNIQUE: Contiguous axial scanning of the abdomen and pelvis following administration of 100 ml Iso jaelyn 300 IV contrast. Delayed images through the kidneys and coronal/sagittal reconstructions perform ed. CT DLP: 1278.80 mGycm Automated exposure control for dose reduction was used. FINDINGS: Progressive diffuse anasarca type changes. A central catheter is present with tip in the right atrium. Heart upper limits of normal in size. The re are [id number] bilateral pleural effusions with prominent basilar lower lobe atelectasis an d possibly some consolidation as well. No focal liver lesion. Some dependent sludge in the gallbladder. Small amounts of perihepatic and perisplenic ascites is demonstrated measuring up to 3 cm on axial im age 26 and 30. Portal venous system is patent. No biliary ductal dilatation. Interval postsurgical changes of anterior midline laparotomy with overlying skin rosie. Surgical dr cevallos courses along the midline subcutaneous fat. Additional surgical drain extends down into the pelvi s. There is a new right lower quadrant ileostomy. Some ascites fluid extends along the ileostomy. Numerous scattered nonenlarged and mild enlarged mesenteric or retroperitoneal lymph nodes are presen t measuring up to 1.1 cm, coronal image 43. Findings likely reactive. No dilated small bowel. No free air is identified. Small amount of subcutaneous air is present along the patient's subcutaneous surgical drain. Borderline to mild distention of small bowel loops in the left mid abdomen measuring up to 3.1 cm. No discrete transition point. Oral contrast is seen extending to the patient's ileostomy. Interval subtotal colectomy. There is a Buckner's pouch at the level of the proximal sigmoid. Residua l oral contrast and air is present within the nonresected distal colon and rectum. No clear enterocol onic fistulous communication is identified when correlating with the coronal and sagittal series. Spleen and pancreas show no gross abnormality. Diffuse striated nephrograms throughout the kidneys with symmetric uptake and excretion otherwise see n. Lama catheter is present. Some nondependent bladder is present. Uterus and ovaries visualized. Mild pelvic free fluid. Bones: No osseous destructive process. IMPRESSION: 1. INTERVAL LAPAROTOMY WITH SUBTOTAL COLECTOMY. THERE IS A BUCKNER'S POUCH AND A RIGHT LOWER QUADRANT ILEOSTOMY. NO RESIDUAL FREE AIR. 2. HOWEVER, THERE IS RESIDUAL ORAL CONTRAST AND AIR WITHIN THE NONRESECTED DISTAL COLON AND RECTUM RI OBABLY INCOMPLETELY EVACUATED FROM PREVIOUSLY ADMINISTERED CONTRAST. NO CLEAR ENTEROCOLONIC FISTULA I S SEEN WHEN CORRELATING WITH THE CORONAL AND SAGITTAL SERIES. 3. SEVERE DIFFUSE ANASARCA WITH MILD ASCITES AND SEVERE MESENTERIC EDEMA. [id number] EFFUSIONS ARE ALSO PRESENT. CORRELATE FOR FLUID OVERLOAD STATE. 4. BILATERAL STRIATED NEPHROGRAMS. CORRELATE WITH RENAL FUNCTION TO EXCLUDE ATN. FINDINGS CAN ALSO BE SEEN WITH PYELONEPHRITIS OR HYPOTENSION. NO HYDRONEPHROSIS TO SUGGEST OBSTRUCTION A CAUSE. 5. PROMINENT BASILAR LOWER LOBE ATELECTASIS AND CONSOLIDATION IN THE VISUALIZED LOWER LUNGS.
[2018-02-18] MEDS: INSULIN ASPART 100 UNIT/ML 1 ML 10 ML VIAL SQ SCH (17:13)
[2018-02-19] MEDS: MORPHINE SULFATE 4 MG/0.8 ML SYRINGE (INJ) IVP PRN ×10 (00:45→21:41)
[2018-02-19] MEDS: KETOROLAC 30 MG/ML 1 ML VIAL IVP SCH ×4 (00:46→17:34)
[2018-02-19] MEDS: HEPARIN SODIUM,PORCINE 5,000 UNIT/ML 1 ML VIAL SQ SCH ×3 (00:47→16:43)
[2018-02-19] MEDS: MEROPENEM 1 GM in SODIUM CHLORIDE 0.9% 100 ML IVPB SCH ×3 (00:53→16:42)
[2018-02-19] MEDS: SODIUM CHLORIDE 0.9% 1,000 ML IV SCH ×4 (00:54→21:41)
[2018-02-19] MEDS: ACETAMINOPHEN IV (For NPO) 1,000 MG in EMPTY BAG 1 BAG IVPB PRN ×3 (04:36→22:34)
[2018-02-19] MEDS: LORazepam 2 MG/ML INJ IV PRN ×2 (05:31→13:38)
[2018-02-19] MEDS: IPRATROPIUM-ALBUTEROL 3 ML NEB INHALATION SCH ×4 (07:02→19:54)
[2018-02-19] MEDS: PANTOPRAZOLE 40 MG/10 ML VIAL IV SCH (08:20)
[2018-02-19 08:53] LABS: Basophils # (A) 0.3 k/uL (0-0.2); Basophils % (A) 1 %; Eosinophils # (A) 0.1 k/uL (0-0.7); Eosinophils % (A) 0 %; HCT 27.9 % (34.0-46.0); HGB 8.9 gm/dL (11.4-16.0); Lymphocytes # (A) 0.7 k/uL (1.0-4.8); Lymphocytes % (A) 1 %; MCV 87.5 fL (80.0-100.0); Mean Platelet Volume 7.1; Monocytes # (A) 0.6 k/uL (0-1.0); Monocytes % (A) 1 %; Neutrophils # (A) 49.9 k/uL (1.3-7.7); Neutrophils % (A) 97 %; Platelet Count 235 k/uL (150-450); RBC 3.19 m/uL (3.80-5.40); RDW 12.3 % (11.5-15.5)
[2018-02-19 08:59] LABS: WBC 51.7 k/uL (3.8-10.6)
[2018-02-19 09:06] LABS: Anion Gap 7 mmol/L; Blood Urea Nitrogen 8 mg/dL (7-17); Calcium 8.2 mg/dL (8.4-10.2); Carbon Dioxide 31 mmol/L (22-30); Chloride 97 mmol/L (98-107); Glucose 84 mg/dL (74-99); Magnesium 1.8 mg/dL (1.6-2.3); Phosphorus 2.6 mg/dL (2.5-4.5); Potassium 3.6 mmol/L (3.5-5.1); Sodium 135 mmol/L (137-145)
[2018-02-19 09:23] LABS: Toxic Granulation Present
--- NOTE | 2018-02-19 11:11 | P.PN ---
Subjective Progress Note Date: 02/19/18 Principal diagnosis: Colon perforation Patient actually looks much better today than yesterday. She is alert and smiling says her pain is improved. She is still having pain however. She believes the Toradol that we had yesterday is helping. Ostomy continues to function. She has no nausea or vomiting. T-max 100.6. Today's CBC however does show a significant increase in white blood cell count 50. CAT scan was obtained yesterday. CAT scan shows no evidence of intra-abdominal abscess. There is some mild thickening of the residual colon and rectum. No evidence of leak from the staple line in the sigmoid region. Objective - Vital Signs Vital signs: Vital Signs Temp 98.3 F 02/19/18 07:05 Pulse 121 H 02/19/18 07:13 Resp 16 02/19/18 08:29 BP 123/79 02/19/18 07:05 Pulse Ox 95 02/19/18 07:05 Intake & Output 02/18/18 02/19/18 02/19/18 18:59 06:59 18:59 Intake Total 3350 3041 Output Total 2165 2580 60 Balance 1185 461 -60 Weight 86 kg Intake: IV 2150 3041 ACETAMINOPHEN IV (For NPO 200 100 ) 1,000 mg In Empty Bag 1 bag @ 400 mls/hr IVPB Q6HR PRN Rx#:[id number] Meropenem 1 gm In Sodium 200 100 Chloride 0.9% 100 ml @ 100 mls/hr IVPB Q8HR [facility] Rx#:[id number] Micafungin 100 mg In 100 0 Sodium Chloride 0.9% 100 ml @ 100 mls/hr IVPB Q24H [facility] Rx#:[id number] Sodium Chloride 0.9% 1, 1650 2841 000 ml @ 150 mls/hr IV . Q6H40M [facility] Rx#:[id number] Intake, IV Titration 200 Amount Magnesium Sulfate-D5w Pmx 100 1 gm In Dextrose/Water 1 100ml.bag @ 100 mls/hr IVPB Q1H [facility] Rx#: [id number] Potassium Chloride 10 meq 100 In Water For Injection 1 100ml.bag @ 100 mls/hr IVPB Q1H [facility] Rx#: [id number] Oral 1000 Output: Drainage 190 30 60 Left Lower Abdomen 30 60 Medial Abdomen 190 Urine 1975 2300 Stool 250 Other: Voiding Method Indwelling Catheter Bedpan Bedpan # Voids 1 ABP, PAP, CO, CI - Last Documented Arterial Blood Pressure 162/95 - Exam Abdomen: Soft, mild distention, mild edema noted diffusely, midline incision shows evidence of purulent drainage from the infraumbilical location. I removed 6 rosie and spontaneous drainage of additional purulent fluid was noted. The fascia appears intact. The area was packed with dry 4 x 4 gauze at this time. Cultures will be obtained. - Labs CBC & Chem 7: 02/19/18 08:27 02/19/18 08:27 Labs: Abnormal Lab Results - Last 24 Hours (Table) 02/19/18 02/19/18 Range/Units 08:27 08:27 WBC 51.7 H* (3.8-10.6) k/uL RBC 3.19 L (3.80-5.40) m/uL Hgb 8.9 L (11.4-16.0) gm/dL Hct 27.9 L (34.0-46.0) % Neutrophils # 49.9 H (1.3-7.7) k/uL Lymphocytes # 0.7 L (1.0-4.8) k/uL Basophils # 0.3 H (0-0.2) k/uL Sodium 135 L (137-145) mmol/L Chloride 97 L (98-107) mmol/L Carbon Dioxide 31 H (22-30) mmol/L Creatinine 0.41 L (0.52-1.04) mg/dL Calcium 8.2 L (8.4-10.2) mg/dL Microbiology - Last 24 Hours (Table) 02/12/18 10:28 Blood Culture - Final Blood No Growth after 144 hours 02/16/18 10:00 Gram Stain - Preliminary Herber-Portillo Body Fluid Culture - Preliminary Gram Neg Bacilli Group D Enterococcus Assessment and Plan (1) Pneumoperitoneum Narrative/Plan: Patient with elevated white blood cell count this morning. I suspect to the wound infection identified on today's exam to be the primary source. Continue broad-spectrum antibiotics. Gradually increase diet. Increase activity as well. Case was discussed with the attending surgeon. Current Visit: Yes Status: Acute Code(s): K66.8 - OTHER SPECIFIED DISORDERS OF PERITONEUM SNOMED Code(s): 25625127
[2018-02-19] MEDS: MICAFUNGIN 100 MG in SODIUM CHLORIDE 0.9% 100 ML IVPB SCH (12:02)
[2018-02-19] MEDS ORDERED: VANCOMYCIN IV PER PHARMACY 1 EACH MISC MISCELLANE PRN (16:29)
[2018-02-19] MEDS ORDERED: VANCOMYCIN 1,750 MG in SODIUM CHLORIDE 0.9% 250 ML IVPB ONE (16:45)
--- NOTE | 2018-02-19 19:28 | PN ---
PROGRESS NOTE DATE OF SERVICE: 02/19/2018. REASON FOR FOLLOW UP: Secondary peritonitis, perforated bowel, significant jump in the white count and evaluation of antibiotic. INTERVAL HISTORY: I was contacted by the patient nurse this morning, the patient needs to be evaluated by Infectious Disease Service as the patient did have significant jump in white count. The patient is a 23 -year-old female who was initially admitted to this facility on 02/10/2018 with chief complaints of not feeling well, significant bleeding per rectum, especially with bowel movements. Subsequently has been evaluated by surgical services and multiple consults including urology, pulmonary, infectious diseases. The patient subsequently has been taken to the OR on 02/14/2018 for acute surgical abdomen. The patient noticed to have pneumoperitoneum and acute surgical abdomen, perforated colon at multiple sites. The patient had exploratory laparotomy, resection right transverse and descending colon, Kai's procedure and ileostomy. The patient did have cultures obtained which did show an E coli, Enterococcus faecalis and gram-negative bacilli. These are pretty sensitive pathogens. The patient has been treated with meropenem and micafungin. The patient overnight did have a fever today with known she did spike a fever of 101.2 Fahrenheit. Afebrile this morning though. The patient has been running a high white count the last few days. It was 29.4 on Tuesday. Tuesday was 21.6. However is up to 51.7 today. The patient did have a repeat CT scan done yesterday afternoon which shows laparotomy with total colectomy and Kai pouch, residual oral contrast and air within the nonresected distal colon, severe diffuse anasarca with mild ascites, bilateral distended nephrograms, basilar lower lobe atelectasis, consolidation. This morning, she was evaluated by Surgery and did have some of the stitches removed with more fluid which has been cultured and because of Infectious disease to evaluate the patient. The patient is afebrile this morning. She has been complaining of some abdominal pain lower abdominal area, seemed to be a little bit worse with more of a colicky 4 to 5 out of 10 and no radiation of pain. Nausea but no vomiting. REVIEW OF SYSTEMS: Positive for fever, abdominal pain, feeling nauseous. system negative. PAST MEDICAL HISTORY: Past medical and surgical history: Unchanged. MEDICATIONS: Medication reviewed. EXAMINATION: Her blood pressure is 127/77 with a pulse of 109, temperature 98.7, she is 98% on 2 L nasal cannula. General description is a young female lying in bed in no distress. No tachypnea or accessory muscles of respiration use. HEENT exam is slight pallor. No scleral icterus. Oral mucosa membranes dry. Neck trachea central. No thyromegaly. Lungs unlabored breathing. Clear to auscultation anteriorly. No wheezes or crackles. Heart S1, S2. Regular rate and rhythm. ABDOMEN: Soft. The lower incision is currently with mostly serous drainage with no surrounding erythema. She was slightly tender to touch though. Extremities: No edema of the feet. Neurological: The patient is awake, alert, and oriented times three. Mood and affect normal. LABS: Hemoglobin 8.1, white count 51.7 with a BUN of 8, creatinine 0.41. Abdominal culture with E coli, Enterococcus faecalis, anaerobic gram-negative bacilli. DIAGNOSTIC IMPRESSION AND PLAN: Patient with new fever in a patient who also has significantly jump in white count. The likely source is abdominal. Possible abdominal incision infection with some purulent material that was drained out this morning. Culture has been obtained. The patient is currently on pretty good gram-negative coverage in the form of meropenem. Apparently was chosen because the patient has ALLERGY TO AMOXICILLIN that should cover both the E coli as well as enterococcus. The patient is growing abdominal along with anaerobic gram-negative. However she is lacking the gram-positive coverage, may be contributing some of the elevated white count and especially incisional infection. At this time the blood cultures have been repeated and we will add vancomycin, pharmacy to dose and continue meropenem and micafungin. Dr. Berrios will be updated about her care. We will follow the patient as of tomorrow. Mother was present at bedside. All her questions and concerns were answered. MMODL / IJN: [id number] /
[2018-02-19 19:37] VITALS: BP 144/82
[2018-02-19] MEDS ORDERED: VANCOMYCIN 1,500 MG in SODIUM CHLORIDE 0.9% 250 ML IVPB SCH (22:00)
[2018-02-19] MEDS ORDERED: VANCOMYCIN 1,750 MG in SODIUM CHLORIDE 0.9% 250 ML IVPB SCH (22:00)
[2018-02-19 23:31] LABS: Glucose,Whole Blood 87 mg/dL (75-99)
[2018-02-19 23:45] LABS: Glucose,Whole Blood 91 mg/dL (75-99)
[2018-02-20 00:19] LABS: HCT 26.2 % (34.0-46.0); HGB 8.4 gm/dL (11.4-16.0); MCH 28.1 pg (25.0-35.0); MCHC 32.1 g/dL (31.0-37.0); MCV 87.6 fL (80.0-100.0); Mean Platelet Volume 7.4; Platelet Count 314 k/uL (150-450); RBC 2.99 m/uL (3.80-5.40); RDW 12.6 % (11.5-15.5)
[2018-02-20 00:22] LABS: WBC 48.6 k/uL (3.8-10.6)
--- NOTE | 2018-02-20 00:22 | P.PN ---
Subjective Progress Note Date: 02/19/18 Patient is a 23-year-old white female status post exploratory laparotomy colon resection for perforated bowel and a Buckner's procedure. The pathology was consistent with diffuse chronic active colitis. The sigmoid appeared to be minimally thickened and therefore a long Buckner's was performed. The patient' s white count preoperatively was 26.9, however postoperatively decreased to 5.7. On the first postoperative day it was 16.9 and then continued to rise and on 02/19/2018 white count was up to 51.7. The patient was noted to have an inferior wound infection which was drained and there was some thought that this may be the cause for the elevated white count. The patient however continued to have persistent abdominal pain. Additionally a SANDIE drain which was in place continue to put out murky serous fluid. A computed tomography scan performed on 02/10/2018 did not reveal evidence of any intraloop abscess. The patient has an ileostomy which has remained pink and viable and has bowel function. The patient became increasingly tachycardic and it was felt that she should be transferred from the floor back to the intensive care unit. The patient is presently on meropenem, vancomycin, and micafungin. I had a long conversation with the patient's father and sister. Secondary to her multiple medical problems including primary hyperparathyroidism, kidney stone, and severe ulcerative colitis we have discussed the possibility of treatment is tertiary care facility. The family would prefer that she be treated at a tertiary care facility. Objective - Vital Signs Vital signs: Vital Signs Temp 102.3 F H 02/19/18 22:45 Pulse 120 H 02/19/18 20:07 Resp 18 02/19/18 19:29 BP 144/82 02/19/18 19:29 Pulse Ox 98 02/19/18 19:29 Intake & Output 02/19/18 02/19/18 02/20/18 06:59 18:59 06:59 Intake Total 3041 120 120 Output Total 2580 300 25 Balance 461 -180 95 Weight 86 kg Intake: IV 3041 ACETAMINOPHEN IV (For NPO 100 ) 1,000 mg In Empty Bag 1 bag @ 400 mls/hr IVPB Q6HR PRN Rx#:[id number] Meropenem 1 gm In Sodium 100 Chloride 0.9% 100 ml @ 100 mls/hr IVPB Q8HR [facility] Rx#:[id number] Micafungin 100 mg In 0 Sodium Chloride 0.9% 100 ml @ 100 mls/hr IVPB Q24H [facility] Rx#:[id number] Sodium Chloride 0.9% 1, 2841 000 ml @ 150 mls/hr IV . Q6H40M [facility] Rx#:[id number] Oral 120 120 Output: Drainage 30 100 Left Lower Abdomen 30 100 Urine 2300 Stool 250 200 25 Other: Voiding Method Bedpan Bedpan # Voids 1 1 1 ABP, PAP, CO, CI - Last Documented Arterial Blood Pressure 162/95 - Constitutional General appearance: Present: average body habitus - Respiratory Details: Clear Decreased breath sounds at bases - Cardiovascular Heart sounds: normal: S1, S2 - Gastrointestinal Gastrointestinal Comment(s): Inferior aspects of the incision is open [place] drain remains in place Remainder of the incision is clean and dry Ostomy pink Hypoactive bowel sounds Abdomen mildly distended - Psychiatric Psychiatric: Present: A&O x's 3, appropriate affect - Labs CBC & Chem 7: 02/19/18 08:27 02/19/18 08:27 Labs: Abnormal Lab Results - Last 24 Hours (Table) 02/19/18 02/19/18 Range/Units 08:27 08:27 WBC 51.7 H* (3.8-10.6) k/uL RBC 3.19 L (3.80-5.40) m/uL Hgb 8.9 L (11.4-16.0) gm/dL Hct 27.9 L (34.0-46.0) % Neutrophils # 49.9 H (1.3-7.7) k/uL Lymphocytes # 0.7 L (1.0-4.8) k/uL Basophils # 0.3 H (0-0.2) k/uL Sodium 135 L (137-145) mmol/L Chloride 97 L (98-107) mmol/L Carbon Dioxide 31 H (22-30) mmol/L Creatinine 0.41 L (0.52-1.04) mg/dL Calcium 8.2 L (8.4-10.2) mg/dL Microbiology - Last 24 Hours (Table) 02/19/18 13:45 Wound Culture - Preliminary Abdomen 02/19/18 13:45 Anaerobic Culture - Preliminary Abdomen 02/16/18 10:00 Gram Stain - Preliminary [place] Body Fluid Culture - Preliminary Escherichia coli Enterococcus faecalis Assessment and Plan Assessment: Impression/plan: 1. Exacerbation of colitis/free air postop day #5 from colon resection 2. Posterior anal fissure 3. Primary hyperparathyroidism 4. Anxiety 5. Leukocytosis 6. Kidney stones 7. Spiking temperatures. 8. Rule out intraperitoneal abscess 9. Rule out need for completion colectomy Plan: 1. After discussion with family and we have decided to transfer patient to tertiary care facility, the cases been discussed with surgery at [facility].
[2018-02-20 00:28] LABS: Anion Gap 8 mmol/L; Blood Urea Nitrogen 5 mg/dL (7-17); Calcium 8.3 mg/dL (8.4-10.2); Carbon Dioxide 28 mmol/L (22-30); Chloride 99 mmol/L (98-107); Glucose 83 mg/dL (74-99); Potassium 3.5 mmol/L (3.5-5.1); Sodium 135 mmol/L (137-145)
[2018-02-20 00:57] LABS: Lymphocytes # (M) 0.49 k/uL (1.0-4.8); Monocytes # (M) 0.49 k/uL (0-1.0); Neutrophils # (M) 47.63 k/uL (1.3-7.7); Neutrophils % (M) 98 %; Nucleated Red Blood Cells 0 /100 WBC (0-0); Total Cells Counted 100
[2018-02-20] MEDS: MORPHINE SULFATE 4 MG/0.8 ML SYRINGE (INJ) IVP PRN (01:00)
[2018-02-20] MEDS: MEROPENEM 1 GM in SODIUM CHLORIDE 0.9% 100 ML IVPB SCH (01:00)
[2018-02-20 01:18] VITALS: RESP 23; TEMP 99
[2018-02-20 02:12] VITALS: PULSE 120
== END 2018-02-20 02:34 | disposition short-term general hospital (02) | DRG 329 ==
LOC: EC 08:29 → 6PED 10:25 → 6ICU 02-12 08:18 → 3SUR 02-18 19:48 → 6ICU 02-19 23:20
PROVIDERS: ADMIT Hospitalist; ATTEND Hospitalist
PROC: 0D1B0Z4 Bypass Ileum to Cutaneous, Open Approach (ICD-10-PCS; 2018-02-14)
PROC: 0DBL0ZZ Excision of Transverse Colon, Open Approach (ICD-10-PCS; 2018-02-14)
PROC: 0DBF0ZZ Excision of Right Large Intestine, Open Approach (ICD-10-PCS; 2018-02-14)
PROC: 0DBU0ZZ Excision of Omentum, Open Approach (ICD-10-PCS; 2018-02-14)
PROC: 0DBG0ZZ Excision of Left Large Intestine, Open Approach (ICD-10-PCS; principal; 2018-02-14 11:25)
DX: K51.90 Ulcerative colitis, unspecified, without complications (principal); K65.8 Other peritonitis; K63.1 Perforation of intestine (nontraumatic); A41.9 Sepsis, unspecified organism; N20.1 Calculus of ureter; J98.11 Atelectasis; E21.0 Primary hyperparathyroidism; K66.8 Other specified disorders of peritoneum; F28 Other psychotic disorder not due to a substance or known physiological condition; B95.2 Enterococcus as the cause of diseases classified elsewhere; B96.20 Unspecified Escherichia coli [E. coli] as the cause of diseases classified elsewhere; F41.9 Anxiety disorder, unspecified; F90.9 Attention-deficit hyperactivity disorder, unspecified type; G89.29 Other chronic pain; K60.2 Anal fissure, unspecified; T38.0X5A Adverse effect of glucocorticoids and synthetic analogues, initial encounter; R41.0 Disorientation, unspecified; R00.1 Bradycardia, unspecified; R00.0 Tachycardia, unspecified; Z87.442 Personal history of urinary calculi; F32.9 Major depressive disorder, single episode, unspecified; D72.829 Elevated white blood cell count, unspecified; M19.90 Unspecified osteoarthritis, unspecified site; N80.0 Endometriosis of uterus; Z62.810 Personal history of physical and sexual abuse in childhood; Z86.19 Personal history of other infectious and parasitic diseases; Z88.0 Allergy status to penicillin; Z88.1 Allergy status to other antibiotic agents; Z88.2 Allergy status to sulfonamides; Z88.8 Allergy status to other drugs, medicaments and biological substances; Z79.52 Long term (current) use of systemic steroids; Z79.899 Other long term (current) drug therapy; Z83.3 Family history of diabetes mellitus; Z82.0 Family history of epilepsy and other diseases of the nervous system; Z87.19 Personal history of other diseases of the digestive system; Z80.8 Family history of malignant neoplasm of other organs or systems
CPT/HCPCS: 36415; 71045; 74018; 74176; 74177; 80048; 80053; 81001; 81003; 81025; 82150; 82550; 82553; 82805; 83036; 83540; 83550; 83605; 83690; 83735; 84100; 84132; 84439; 84443; 84484; 84703; 85025; 85610; 85652; 85730; 86140; 86850; 86870; 86880; 86900; 86901; 87040; 87070; 87075; 87077; 87086; 87186; 87205; 87324; 88307; 88309; 93306; 94002; 94003; 94640; 94760; 96361; 96374; 96375; 96376; 99285